=== PATIENT | female | born 1940 | race Caucasian/White ===

== ENCOUNTER → 2023-06-22 06:14 | Outpatient (ROUT) | payer MEDICARE, SELFPAY ==
[2023-06-22 07:10] LABS: Add Manual Diff / Slide Review NO; Basophils Absolute Auto 100 /uL (0-100); Basophils Percent Auto 0.7 % (0-2); Eosinophils Absolute Auto 300 /uL (0-450); Eosinophils Percent Auto 3.8 % (2-4); Hematocrit 34.4 % (36-46); Hemoglobin 11.1 g/dL (12.0-16.0); Lymphocytes Absolute Auto 2000 /uL (1100-4500); Lymphocytes Percent Auto 22.6 % (25-40); Mean Corpuscular HGB Conc 32.3 % (30-36); Mean Corpuscular Volume 80.5 fL (80-100); Monocytes Absolute Auto 500 /uL (0-900); Monocytes Percent Auto 5.2 % (3-14); Neutrophils Absolute Auto 6100 /uL (1500-7000); Neutrophils Percent Auto 67.7 % (50-75); Platelet Count 311 X10^3/uL (150-400); Red Blood Cell Count 4.28 X10^6/uL (4.0-5.2)
[2023-06-22 07:27] LABS: INR 1.7 (0.9-1.3); Prothrombin Time 20.1 SECONDS (9.4-12.5)
[2023-06-22 07:33] LABS: Alanine Aminotransferase 14 IU/L (<35); Albumin 3.6 g/dL (3.5-5.0); Albumin Globulin Ratio 1.3 (1.0-2.8); Alkaline Phosphatase 109 U/L (38-126); Aspartate Aminotransferase 19 IU/L (14-36); Bilirubin Total 0.4 mg/dL (0.2-1.3); Blood Urea Nitrogen 15 mg/dL (7-17); Calcium 9.2 mg/dL (8.4-10.2); Carbon Dioxide 31 mmol/L (22-32); Chloride 107 mmol/L (98-107); Estimated Glomerular Filt Rate > 60 mL/min (>60); Globulin 2.7 g/dL (1.7-4.1); Glucose 167 mg/dL (80-110); HEMOLYSIS < 15 (0-50); Potassium 5.1 mmol/L (3.4-5.1); Sodium 140 mmol/L (137-145); Total Protein 6.3 g/dL (6.3-8.2)
== END ==
PROVIDERS: Visit Provider Nurse Practitioner
DX: E03.9 Hypothyroidism, unspecified (principal)
CPT/HCPCS: 36415; 80053; 85025; 85610

== ENCOUNTER → 2023-06-29 06:24 | Outpatient (ROUT) | payer MEDICARE, SELFPAY ==
[2023-06-29 08:01] LABS: INR 2.1 (0.9-1.3); Prothrombin Time 24.3 SECONDS (9.4-12.5)
== END ==
PROVIDERS: Visit Provider Registered Nurse
DX: I48.91 Unspecified atrial fibrillation (principal)
CPT/HCPCS: 36415; 85610

== ENCOUNTER → 2023-07-06 06:14 | Outpatient (ROUT) | payer MEDICARE, SELFPAY ==
[2023-07-06 07:11] LABS: Prothrombin Time 23.5 SECONDS (9.4-12.5)
== END ==
PROVIDERS: Visit Provider Registered Nurse
DX: I48.91 Unspecified atrial fibrillation (principal)
CPT/HCPCS: 36415; 85610

== ENCOUNTER → 2023-07-15 15:21 | Outpatient (ROUT) | payer MEDICARE, SELFPAY ==
[2023-07-15 15:32] LABS: Appearance Urine UA CLOUDY; Bilirubin Urine UA NEGATIVE (NEGATIVE); Color Urine UA YELLOW; Glucose Urine UA NEGATIVE (Negative); Ketones Urine UA NEGATIVE (NEGATIVE); Leukocyte Esterase Urine UA 2+ (NEGATIVE); Nitrite Urine UA POSITIVE (Negative); Occult Blood Urine UA TRACE-INTACT (Negative); Protein Urine UA NEGATIVE (Negative); Urobilinogen Urine UA 0.2 E.U./dL (0.2)
[2023-07-15 15:41] LABS: Bacteria Urine Many (>30); Culture Indicated Urine Specimen Cultured; RBC Urine 1-5/HPF (0-5/HPF); Squamous Epithelial Cell Urine None Seen (0-5/HPF); Urine Volume 10mL (spun); WBC Urine 10-30/HPF (0-5/HPF)
== END ==
PROVIDERS: Visit Provider Internal Medicine
DX: Z13.89 Encounter for screening for other disorder (principal)
CPT/HCPCS: 81001; 87077; 87086; 87147; 87186

== ENCOUNTER → 2023-07-20 06:14 | Outpatient (ROUT) | payer MEDICARE, SELFPAY ==
[2023-07-20 07:04] LABS: Add Manual Diff / Slide Review NO; Basophils Absolute Auto 100 /uL (0-100); Basophils Percent Auto 0.7 % (0-2); Eosinophils Absolute Auto 200 /uL (0-450); Eosinophils Percent Auto 2.9 % (2-4); Hematocrit 33.9 % (36-46); Hemoglobin 10.8 g/dL (12.0-16.0); Lymphocytes Absolute Auto 1900 /uL (1100-4500); Lymphocytes Percent Auto 22.6 % (25-40); Mean Corpuscular Hemoglobin 25.9 PG (26-34); Mean Corpuscular Volume 80.9 fL (80-100); Monocytes Absolute Auto 500 /uL (0-900); Monocytes Percent Auto 5.9 % (3-14); Neutrophils Absolute Auto 5600 /uL (1500-7000); Neutrophils Percent Auto 67.9 % (50-75); Platelet Count 289 X10^3/uL (150-400); Red Blood Cell Count 4.19 X10^6/uL (4.0-5.2); Red Cell Distribution Width 15.9 % (11.6-14.8); White Blood Cell Count 8.3 X10^3/uL (4.5-11.0)
[2023-07-20 07:11] LABS: Hemoglobin A1C% w Est Avg Glu 8.7 % (4.0-6.0)
[2023-07-20 07:45] LABS: Thyroid Stimulating Hormone 3.05 uIU/mL (0.47-4.68)
[2023-07-20 08:21] LABS: Folate 9.4 ng/mL (2.76-20.0); Vitamin B12 979 pg/mL (239-931)
== END ==
PROVIDERS: Visit Provider Registered Nurse
DX: R41.0 Disorientation, unspecified (principal)
CPT/HCPCS: 36415; 82607; 82746; 83036; 84443; 85025

== ENCOUNTER → 2023-07-28 13:01 | Outpatient (CLI) | payer MEDICARE, SELFPAY ==
[2023-07-28 15:18] LABS: INR 1.9 (0.9-1.3); Prothrombin Time 21.4 SECONDS (9.4-12.5)
== END ==
PROVIDERS: Visit Provider Registered Nurse
DX: I48.91 Unspecified atrial fibrillation (principal)
CPT/HCPCS: 36415; 85610

== ENCOUNTER → 2023-08-17 06:12 | Outpatient (ROUT) | payer MEDICARE, SELFPAY ==
[2023-08-17 07:28] LABS: INR 2.7 (0.9-1.3); Prothrombin Time 30.9 SECONDS (9.4-12.5)
== END ==
PROVIDERS: Visit Provider Nurse Practitioner Family
DX: E05.90 Thyrotoxicosis, unspecified without thyrotoxic crisis or storm (principal)
CPT/HCPCS: 36415; 85610

== ENCOUNTER → 2023-08-24 06:23 | Outpatient (ROUT) | payer MEDICARE, SELFPAY ==
[2023-08-24 08:05] LABS: INR 2.9 (0.9-1.3); Prothrombin Time 33.4 SECONDS (9.4-12.5)
== END ==
PROVIDERS: Visit Provider Registered Nurse
DX: Z79.01 Long term (current) use of anticoagulants (principal)
CPT/HCPCS: 36415; 85610

== ENCOUNTER → 2023-08-31 06:26 | Outpatient (ROUT) | payer MEDICARE, SELFPAY ==
[2023-08-31 07:39] LABS: INR 2.3 (0.9-1.3); Prothrombin Time 27.1 SECONDS (9.4-12.5)
== END ==
PROVIDERS: Visit Provider Registered Nurse
DX: E03.9 Hypothyroidism, unspecified (principal)
CPT/HCPCS: 36415; 85610

== ENCOUNTER → 2023-09-07 10:38 | Outpatient (CLI) | payer MEDICARE, MEDICAID, SELFPAY ==
[2023-09-07 11:52] LABS: INR 2.1 (0.9-1.3); Prothrombin Time 24.6 SECONDS (9.4-12.5)
== END ==
LOC: LAB 10:41
PROVIDERS: Visit Provider Registered Nurse
DX: E03.9 Hypothyroidism, unspecified (principal)
CPT/HCPCS: 36415; 85610

== ENCOUNTER → 2023-09-14 05:51 | Outpatient (ROUT) | payer MEDICARE, MEDICAID, SELFPAY ==
[2023-09-14 07:37] LABS: Prothrombin Time 35.1 SECONDS (9.4-12.5)
== END ==
PROVIDERS: Visit Provider Registered Nurse
DX: E03.9 Hypothyroidism, unspecified (principal)
CPT/HCPCS: 36415; 85610

== ENCOUNTER → 2023-09-15 23:51 | Outpatient (ROUT) | payer MEDICARE, MEDICAID, SELFPAY | PROVIDERS: Visit Provider Internal Medicine | DX: R42 Dizziness and giddiness (principal); M79.7 Fibromyalgia; E03.9 Hypothyroidism, unspecified; G99.0 Autonomic neuropathy in diseases classified elsewhere; I48.91 Unspecified atrial fibrillation; I73.00 Raynaud's syndrome without gangrene | CPT/HCPCS: 87086 ==

== ENCOUNTER → 2023-09-28 06:19 | Outpatient (ROUT) | payer MEDICARE, MEDICAID, SELFPAY ==
[2023-09-28 07:49] LABS: INR 2.6 (0.9-1.3); Prothrombin Time 30.3 SECONDS (9.4-12.5)
== END ==
PROVIDERS: Visit Provider Registered Nurse
DX: E03.9 Hypothyroidism, unspecified (principal)
CPT/HCPCS: 36415; 85610

== ENCOUNTER → 2023-10-05 06:54 | Outpatient (ROUT) | payer MEDICARE, MEDICAID, SELFPAY ==
[2023-10-05 07:19] LABS: INR 1.8 (0.9-1.3); Prothrombin Time 20.9 SECONDS (9.4-12.5)
== END ==
PROVIDERS: Visit Provider Registered Nurse
DX: E03.9 Hypothyroidism, unspecified (principal)
CPT/HCPCS: 36415; 85610

== ENCOUNTER → 2023-10-12 06:14 | Outpatient (ROUT) | payer MEDICARE, MEDICAID, SELFPAY ==
[2023-10-12 07:16] LABS: INR 2.5 (0.9-1.3); Prothrombin Time 28.5 SECONDS (9.4-12.5)
== END ==
PROVIDERS: Visit Provider Registered Nurse
DX: E03.9 Hypothyroidism, unspecified (principal)
CPT/HCPCS: 36415; 85610

== ENCOUNTER → 2023-10-19 06:12 | Outpatient (ROUT) | payer MEDICARE, MEDICAID, SELFPAY ==
[2023-10-19 08:05] LABS: Prothrombin Time 23.4 SECONDS (9.4-12.5)
== END ==
PROVIDERS: Visit Provider Registered Nurse
DX: E03.9 Hypothyroidism, unspecified (principal)
CPT/HCPCS: 36415; 85610

== ENCOUNTER → 2023-11-02 07:44 | Outpatient (ROUT) | payer MEDICARE, MEDICAID, SELFPAY ==
[2023-11-02 08:30] LABS: Prothrombin Time 23.3 SECONDS (9.4-12.5)
== END ==
PROVIDERS: Visit Provider Registered Nurse
DX: R79.1 Abnormal coagulation profile (principal)
CPT/HCPCS: 36415; 85610

== ENCOUNTER → 2023-11-09 06:10 | Outpatient (ROUT) | payer MEDICARE, MEDICAID, SELFPAY ==
[2023-11-09 07:00] LABS: INR 2.4 (0.9-1.3); Prothrombin Time 27.6 SECONDS (9.4-12.5)
== END ==
PROVIDERS: Visit Provider Registered Nurse
DX: E03.9 Hypothyroidism, unspecified (principal)
CPT/HCPCS: 36415; 85610

== ENCOUNTER 2023-11-09 09:58 | Emergency (ER) | payer MEDICARE, MEDICAID, SELFPAY ==
[2023-11-09] VITALS (9 sets, daily range): BP systolic 137–150; BP diastolic 62–69; PULSE 85–89; RESP 12–17; TEMP 36.8; O2SAT 96–99
--- NOTE | 2023-11-09 10:04 | DI.CT.S_ITS ---
PROCEDURE: CT HEAD/BRAIN WO CON INDICATIONS: fall TECHNIQUE: Noncontrast 4.5 mm thick angled axial sections acquired from the foramen magnum to the vertex, with coronal and sagittal reformats. For radiation dose reduction, the following was used: automated exposure control, adjustment of mA and/or kV according to patient size. COMPARISON: None. FINDINGS: Image quality: Diagnostic. CSF spaces: Basal cisterns are patent. No extra-axial fluid collections. The ventricles are symmetric in size and shape. Brain: No intracranial bleeds or masses. There is cerebral volume loss for age, with resultant ventricular and sulcal prominence. There are periventricular and deep white matter chronic small vessel ischemic changes. There is intracranial internal carotid artery atherosclerosis. Skull and face: Superficial hematoma, left forehead. Calvarium and visualized facial bones appear intact, without suspicious lesions. Sinuses: Visualized sinuses and mastoids are clear. IMPRESSION: 1. No acute intracranial pathology. 2. Superficial hematoma, left forehead. Dictated by: Maxi Sibley M.D. on 11/09/2023 at 10:42 Approved by: Maxi Sibley M.D. on 11/09/2023 at 10:43
--- NOTE | 2023-11-09 10:05 | ED.GENADULT ---
HPI - General Adult General Chief complaint: Trauma Stated complaint: Mod Trauma, hit head on warfarin Time Seen by Provider: 11/09/23 10:03 History of Present Illness HPI narrative: 82-year-old woman lives in [facility] stumbled and fell in the bathroom hitting the front part of her forehead and a small trash can. There was no loss of consciousness, she was on the floor for approximately 45 minutes until she was able to reach her phone and call her son. She complains of some minor neck pain. She very much describes this as a mechanical fall, states she has been in her usual state of reasonable health. No recent fevers, cough, chills. She describes no chest pain, palpitations, dyspnea. She has not complaining of any pain to other portions of her body. She notes she was not able to get up off the floor by herself but would not has been able to do so at any previous time either. She is on warfarin for her chronic atrial fibrillation Related Data Allergies Allergy/AdvReac Type Severity Reaction Status Date / Time adhesive tape Allergy Verified 11/09/23 10:20 apixaban [From Eliquis] Allergy Verified 11/09/23 10:20 Cholinesterase Allergy Verified 11/09/23 10:20 Inhibitor(Carbamate) dulaglutide Allergy Verified 11/09/23 10:20 NSAIDS (Non-Steroidal Allergy Verified 11/09/23 10:20 Anti-Inflamma Sulfa (Sulfonamide Allergy Verified 11/09/23 10:20 Antibiotics) Review of Systems Review of Systems Narrative: Pertinent positive and negative findings as per HPI Patient History Medical History (Updated 11/09/23 @ 11:17 by Ashlyn Elmore MD) Chronic atrial fibrillation Social History Smoking Status: Never smoker Exam Initial Vital Signs Initial Vital Signs: Vital Signs Pulse Rate 89 11/09/23 09:56 Respiratory Rate 16 11/09/23 09:56 Blood Pressure 150/69 H 11/09/23 09:56 Pulse Oximetry 99 11/09/23 09:56 Oxygen Delivery Method Room Air 11/09/23 09:56 General: In no acute distress, able to speak in complete and coherent sentences HEENT: Moist mucous membranes, normal sclera with reactive pupils, large hematoma with minor abrasion no laceration over the left brow. Neck: Mild tenderness along the left cervical spine from approximately C4-C7. Respiratory: Lungs are clear to auscultation, no wheezing no rales no rhonchi. Full and symmetrical air movement Cardiac: Regular rate and rhythm no murmurs no bruits Abdomen: Soft, nontender, good bowel tones, no flank pain Skin: Warm and dry, no rashes, no new bruises over extremities or hips. She does have some old healing bruises over knees bilaterally Neurologic: Grossly neurologically intact with no obvious asymmetries or abnormalities Extremities: No trauma, well perfused Psych: Cooperative, appropriate insight and affect Course Orders Ordered: ED Orders 11/09/23 10:04 CT head/brain wo con Stat EKG-12 Lead Stat 11/09/23 10:10 Complete Blood Count AUTO DIFF Stat Comprehensive Metabolic Panel Stat Prothrombin Time INR Stat Troponin I Stat 11/09/23 10:11 CT cervical spine wo con Stat Hydromorphone HCl (Hydromorphone 0.5 Mg Inj) 0.5 mg IV Q15MIN PRN PRN Reason: Pain, Last Admin: 11/09/23 10:21 Dose: 0.5 mg Documented By: CATHIE Sodium Chloride (Normal Saline 0.9%) 1,000 mls @ 150 mls/hr IV CONT ISI Last Admin: 11/09/23 10:22 Dose: 150 mls/hr Documented By: CATHIE Vital Signs Vital signs: Vital Signs - 8 hr 11/09/23 09:56 11/09/23 09:58 11/09/23 09:59 Temperature Temperature [1000] Pulse Rate 89 Pulse Rate [1000] Respiratory Rate 16 Respiratory Rate [1000] Blood Pressure 150/69 H 150/69 H Blood Pressure [1000] Pulse Oximetry 99 96 Pulse Oximetry [1000] Oxygen Delivery Method Room Air Oxygen Delivery Method [1000] 11/09/23 09:59 11/09/23 10:00 11/09/23 10:00 Temperature Temperature [1000] Pulse Rate 88 88 Pulse Rate [1000] Respiratory Rate 16 Respiratory Rate [1000] Blood Pressure 137/63 Blood Pressure [1000] Pulse Oximetry 99 99 Pulse Oximetry [1000] Oxygen Delivery Method Oxygen Delivery Method [1000] 11/09/23 10:22 11/09/23 10:23 11/09/23 10:26 Temperature 98.2 F Temperature [1000] 98.2 F Pulse Rate 85 Pulse Rate [1000] 88 Respiratory Rate 12 Respiratory Rate [1000] 16 Blood Pressure 144/67 H Blood Pressure [1000] 150/69 H Pulse Oximetry 99 Pulse Oximetry [1000] 99 Oxygen Delivery Method Oxygen Delivery Method [1000] Room Air Medical Decision Making Lab Data 11/09/23 10:10 11/09/23 10:10 Labs: Lab Results 11/09/23 Range/Units 10:10 WBC 10.9 (4.5-11.0) X10^3/uL RBC 5.21 H (4.0-5.2) X10^6/uL Hgb 12.9 (12.0-16.0) g/dL Hct 40.7 (36-46) % MCV 78.2 L (80-100) fL MCH 24.7 L (26-34) PG MCHC 31.6 (30-36) % RDW 16.4 H (11.6-14.8) % Plt Count 388 (150-400) X10^3/uL Neut % (Auto) 79.1 H (50-75) % Lymph % (Auto) 11.9 L (25-40) % [place] % (Auto) 5.1 (3-14) % Eos % (Auto) 3.6 (2-4) % Baso % (Auto) 0.3 (0-2) % Neut # (Auto) 8600 H (7134-4544) /uL Lymph # (Auto) 1300 (8808-9061) /uL [place] # (Auto) 600 (0-900) /uL Eos # (Auto) 400 (0-450) /uL Baso # (Auto) 0 (0-100) /uL PT 25.4 H (9.4-12.5) SECONDS INR 2.2 H (0.9-1.3) Sodium 134 L (137-145) mmol/L Potassium 4.5 (3.4-5.1) mmol/L Chloride 101 (98-107) mmol/L Carbon Dioxide 22 (22-32) mmol/L BUN 24 H (7-17) mg/dL Creatinine 0.86 (0.52-1.04) mg/dL Estimated GFR > 60 (>60) mL/min BUN/Creatinine Ratio 27.9 H (6-22) Glucose 298 H (80-110) mg/dL Calcium 9.3 (8.4-10.2) mg/dL Total Bilirubin 0.6 (0.2-1.3) mg/dL AST 25 (14-36) IU/L ALT 18 (<35) IU/L Alkaline Phosphatase 105 (38-126) U/L Troponin I < 0.012 (0.01-0.034) ng/mL Total Protein 8.0 (6.3-8.2) g/dL Albumin 4.3 (3.5-5.0) g/dL Globulin 3.7 (1.7-4.1) g/dL Albumin/Globulin Ratio 1.2 (1.0-2.8) MDM Narrative Medical decision making narrative: CC: Mechanical fall, hit her head, is on warfarin, no loss of consciousness Complicating co-morbidities: Chronic atrial fibrillation Data collected from: patient Social determinants of health that may influence the patients condition: She does live in an assisted living facility Differential considered: Mechanical fall with contusion to the head, intracranial hemorrhage, cervical spine injury, syncope or cardiac episode causing the fall Exam documented above, pertinent findings include: Large hematoma over the left brow minor tenderness to the left side of the cervical spine no obvious trauma or bruising anywhere else on her body. Lab Test results independently reviewed as above. Pertinent findings: CBC is unremarkable Chemistries are reassuring. Glucose is at 298 Troponin is undetectable INR is therapeutic 2.2 Independently reviewed EKG: Sinus rhythm at a rate of 85. Right bundle branch block. No acute ischemic changes Imaging studies independently reviewed: CT scan of the head shows the superficial hematoma noted clinically only CT scan of the cervical spine shows no acute fractures Discussion: 82-year-old woman on Coumadin for chronic atrial fibrillation, lives in assisted living facility mechanical fall with hematoma to the left side of her forehead with no indication of intracranial hemorrhage or cervical spine injury. There is no additional musculoskeletal trauma. Did explain to her that this large hematoma is going to cause a bruise all the way down her face and into her chest and is likely going to take up to a month to completely resolve. She has not ice pack in place, has Tylenol available at home to use needed. Reassurance is given there was no indication for hospitalization, additional imaging or lab work at this time. She is safe for discharge Discharge Plan Departure Patient Disposition: Home Clinical Impression: Anticoagulated Fall Qualifiers: Encounter type: initial encounter Qualified Code(s): W19.XXXA - Unspecified fall, initial encounter Traumatic hematoma of forehead Qualifiers: Encounter type: initial encounter Qualified Code(s): S00.83XA - Contusion of other part of head, initial encounter Instructions: DI for Hematoma (Bruise) Activity Restrictions/Additional Instructions: Thank you for coming in today Aside from the large hematoma you have over your forehead, there was no additional injury that we have found after your fall this morning. The CT scan of the inside of your head as well as your cervical spine are quite reassuring With the large bruise to your forehead, this is going to take up to a month or longer to completely heal. It is going to turn black and blue all the way down the side of your face and likely even into your upper chest You can use Tylenol for pain, ice can be helpful over the course of today If you find that you are getting worse or develop any new symptoms, please feel free to return to the emergency department for further evaluation. Stand Alone Forms: Patient Portal/API
--- NOTE | 2023-11-09 10:11 | DI.CT.S_ITS ---
PROCEDURE: CT CERVICAL SPINE WO CON INDICATIONS: fall TECHNIQUE: Noncontrast 3 mm thick sections acquired from the skull base to the T4 level. Sagittal and coronal reformats were then constructed. For radiation dose reduction, the following was used: automated exposure control, adjustment of mA and/or kV according to patient size. COMPARISON: None. FINDINGS: Image quality: Excellent. Bones: No fractures or dislocations. Visualized superior ribs are intact. Relatively mild cervical spondylosis. Soft tissues: Prevertebral soft tissues are normal in thickness. No paravertebral hematomas. No apical pneumothoraces. IMPRESSION: No displaced fracture or traumatic subluxation. Dictated by: Maxi Sibley M.D. on 11/09/2023 at 10:43 Approved by: Maxi Sibley M.D. on 11/09/2023 at 10:44
[2023-11-09 10:17] LABS: Add Manual Diff / Slide Review NO; Basophils Absolute Auto 0 /uL (0-100); Basophils Percent Auto 0.3 % (0-2); Eosinophils Absolute Auto 400 /uL (0-450); Eosinophils Percent Auto 3.6 % (2-4); Hematocrit 40.7 % (36-46); Hemoglobin 12.9 g/dL (12.0-16.0); Lymphocytes Absolute Auto 1300 /uL (1100-4500); Lymphocytes Percent Auto 11.9 % (25-40); Mean Corpuscular HGB Conc 31.6 % (30-36); Mean Corpuscular Hemoglobin 24.7 PG (26-34); Mean Corpuscular Volume 78.2 fL (80-100); Monocytes Absolute Auto 600 /uL (0-900); Monocytes Percent Auto 5.1 % (3-14); Neutrophils Absolute Auto 8600 /uL (1500-7000); Neutrophils Percent Auto 79.1 % (50-75); Platelet Count 388 X10^3/uL (150-400); Red Blood Cell Count 5.21 X10^6/uL (4.0-5.2); Red Cell Distribution Width 16.4 % (11.6-14.8); White Blood Cell Count 10.9 X10^3/uL (4.5-11.0)
[2023-11-09] MEDS: HYDROMORPHONE 0.5 MG INJ IV (10:21)
[2023-11-09] MEDS: SODIUM CHLORIDE 0.9% 1,000 ML 150 ML IV (10:22)
--- NOTE | 2023-11-09 10:25 | PC.NURSE ---
Pt states tetanus shot is from 2 years ago.
--- NOTE | 2023-11-09 10:29 | EKG_ITS ---
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
[2023-11-09 10:32] LABS: INR 2.2 (0.9-1.3); Prothrombin Time 25.4 SECONDS (9.4-12.5)
--- NOTE | 2023-11-09 10:36 | PC.NURSE ---
Unable to obtain prehospital vital signs.
[2023-11-09 10:37] LABS: Alanine Aminotransferase 18 IU/L (<35); Albumin 4.3 g/dL (3.5-5.0); Albumin Globulin Ratio 1.2 (1.0-2.8); Alkaline Phosphatase 105 U/L (38-126); Aspartate Aminotransferase 25 IU/L (14-36); BUN Creatinine Ratio 27.9 (6-22); Bilirubin Total 0.6 mg/dL (0.2-1.3); Blood Urea Nitrogen 24 mg/dL (7-17); Calcium 9.3 mg/dL (8.4-10.2); Carbon Dioxide 22 mmol/L (22-32); Chloride 101 mmol/L (98-107); Estimated Glomerular Filt Rate > 60 mL/min (>60); Globulin 3.7 g/dL (1.7-4.1); Glucose 298 mg/dL (80-110); HEMOLYSIS 35 (0-50); Potassium 4.5 mmol/L (3.4-5.1); Sodium 134 mmol/L (137-145)
[2023-11-09 10:49] LABS: Troponin I < 0.012 ng/mL (0.01-0.034)
--- NOTE | 2023-11-09 11:32 | PC.NURSE ---
[facility] Message left.
[2023-11-09 11:50] LABS: Urine Volume 10mL (spun)
[2023-11-09 11:51] LABS: Bacteria Urine Many (>30); Culture Indicated Urine Specimen Cultured; RBC Urine 5-10/HPF (0-5/HPF); Squamous Epithelial Cell Urine 0-1 /HPF (0-5/HPF); WBC Urine 1-5/HPF (0-5/HPF)
== END 2023-11-09 11:33 | disposition home or self-care (01) ==
PROVIDERS: Emergency Provider Emergency Medicine
DX: S00.83XA Contusion of other part of head, initial encounter (principal); M54.2 Cervicalgia; I45.10 Unspecified right bundle-branch block; W18.00XA Striking against unspecified object with subsequent fall, initial encounter; Z79.01 Long term (current) use of anticoagulants; E03.9 Hypothyroidism, unspecified
CPT/HCPCS: 36415; 70450; 72125; 80053; 81003; 81015; 84484; 85025; 85610; 87086; 93005; 93010; 96361; 96374; 99284; J1170

== ENCOUNTER → 2023-11-23 13:41 | Outpatient (CLI) | payer MEDICARE, MEDICAID, SELFPAY ==
[2023-11-23 14:13] LABS: Bilirubin Urine UA NEGATIVE (NEGATIVE); Color Urine UA YELLOW; Glucose Urine UA 3+ g/dL (Negative); Ketones Urine UA NEGATIVE (NEGATIVE); Leukocyte Esterase Urine UA TRACE (NEGATIVE); Nitrite Urine UA NEGATIVE (Negative); Occult Blood Urine UA 1+ (Negative); Protein Urine UA NEGATIVE (Negative); Specific Gravity Urine UA 1.015 (1.000-1.035); Urobilinogen Urine UA 0.2 E.U./dL (0.2)
[2023-11-23 14:15] LABS: Appearance Urine UA CLOUDY
[2023-11-23 14:18] LABS: Urine Volume 10mL (spun)
[2023-11-23 14:27] LABS: Bacteria Urine Many (>30); Culture Indicated Urine Specimen Cultured; RBC Urine 0-1/HPF (0-5/HPF); Squamous Epithelial Cell Urine 0-1 /HPF (0-5/HPF); WBC Urine 30-100/HPF (0-5/HPF)
== END ==
PROVIDERS: PCP Family Medicine; Visit Provider Family Medicine
DX: R30.0 Dysuria (principal)
CPT/HCPCS: 81001; 87086

== ENCOUNTER 2023-11-24 12:25 | Emergency (ER) | payer MEDICARE, MEDICAID, SELFPAY ==
[2023-11-24] VITALS (11 sets, daily range): BP systolic 136–178; BP diastolic 65–80; PULSE 85–100; RESP 16–24; TEMP 36.6; O2SAT 95–98; BMI 23.9
--- NOTE | 2023-11-24 12:59 | ED_ITS ---
HPI - Fall General Chief Complaint: Fall Stated Complaint: Fell out of bed Tuesday,now left rib pain,+coumadin Time Seen by Provider: 11/24/23 12:48 History of Present Illness HPI Narrative: 83-year-old female resident at [facility] complains of ongoing left lower chest left upper quadrant abdominal discomfort after rolling out of bed Tuesday 3 days ago, hurts worse with breathing deeply, hurts with truncal movements sitting twisting motions. She denies black or red stools. She denies blood in her urine. She denies sensation of shortness of breath. Denies black or red stools. Takes warfarin chronic anticoagulation. Related Data Home Medications Medication Instructions Recorded Confirmed acetaminophen 500 mg tablet 1,000 mg PO QID PRN 11/23/23 11/23/23 cholecalciferol (vitamin D3) 50 50 mcg PO DAILY 11/23/23 11/23/23 mcg (2,000 unit) capsule empagliflozin 10 mg tablet 10 mg PO DAILY 11/23/23 11/23/23 (Jardiance) glipizide 10 mg tablet 10 mg PO DAILY 11/23/23 11/23/23 levothyroxine 112 mcg tablet 112 mcg PO DAILY 11/23/23 11/23/23 mecobalamin (vitamin B12) 1,000 1,000 mcg sublingual DAILY 11/23/23 11/23/23 mcg disintegrating tablet,sublingual metformin 1,000 mg tablet 1,000 mg PO BID 11/23/23 11/23/23 omeprazole 20 mg tablet,delayed 20 mg PO BID 11/23/23 11/23/23 release venlafaxine 75 mg tablet 75 mg PO BID 11/23/23 11/23/23 levalbuterol tartrate 45 2 puff inhalation Q4-6H PRN 11/24/23 11/24/23 mcg/actuation aerosol inhaler (Xopenex HFA) warfarin 2.5 mg tablet 2.5 mg PO 4XW 11/24/23 11/24/23 warfarin 3 mg tablet 3 mg PO Q OTHER DAY 11/24/23 11/24/23 Previous Rx's Medication Instructions Recorded ciprofloxacin HCl 250 mg tablet 250 mg PO BID #10 tabs 11/22/23 albuterol sulfate 90 mcg/actuation 2 puff inhalation Q6H PRN 11/24/23 aerosol inhaler shortness of breath or wheezing #8.5 grams cefuroxime axetil 500 mg tablet 500 mg PO BID #14 tabs 11/24/23 Allergies Allergy/AdvReac Type Severity Reaction Status Date / Time adhesive tape Allergy Verified 11/22/23 13:16 apixaban [From Eliquis] Allergy Verified 11/22/23 13:16 Cholinesterase Allergy Verified 11/22/23 13:16 Inhibitor(Carbamate) dulaglutide Allergy Verified 11/22/23 13:16 NSAIDS (Non-Steroidal Allergy Verified 11/22/23 13:16 Anti-Inflamma Sulfa (Sulfonamide Allergy Verified 11/22/23 13:16 Antibiotics) Review of Systems Review of Systems Narrative: see HPI Patient History Medical History (Updated 11/24/23 @ 15:56 by Blanco Ogden MD) Chronic atrial fibrillation Social History Smoking Status: Never smoker Smoking Status: Never smoker Substance Use Type: does not use Exam Narrative Exam Narrative: GENERAL: Well-developed patient, in mild distress. HEAD: Atraumatic. Normocephalic. EYES: Pupils equal round and reactive. Extraocular motions intact. No scleral icterus. No injection or drainage. ENT: Nose without bleeding, purulent drainage. Throat without erythema, tonsillar hypertrophy or exudate. Airway patent. NECK: Trachea midline. Non tender CARDIOVASCULAR: Regular rate and rhythm without murmurs, gallops, or rubs. RESPIRATORY: Clear to auscultation. Breath sounds equal bilaterally. No wheezes, rales, or rhonchi. Tenderness left anterior rib margin, no crepitance, no abrasion, no flail chest movements. Speaks full sentences. GASTROINTESTINAL: Abdomen soft, tenderness left upper quadrant, nondistended. EXTREMITIES: No edema or joint tenderness. BACK: Nontender without deformity or crepitance. No flank tenderness. NEURO: AOx3. Motor functions grossly nonfocal SKIN: No rash or erythema of visible areas Initial Vital Signs Initial Vital Signs: Vital Signs Temperature 98 F 11/24/23 12:33 Pulse Rate 91 H 11/24/23 12:33 Respiratory Rate 16 11/24/23 12:33 Blood Pressure 178/80 H 11/24/23 12:33 Pulse Oximetry 97 11/24/23 12:33 Oxygen Delivery Method Room Air 11/24/23 12:33 Course Orders Ordered: ED Orders 11/24/23 14:14 XR chest 1V Stat 11/24/23 14:15 CT abdomen pelvis w con Stat 11/24/23 14:33 CBC Auto Diff [Complete Blood Count AUTO DIFF] Stat CMP [Comprehensive Metabolic Panel] Stat 11/24/23 14:46 Urinalysis and Microscopic Stat Urine Culture Stat Discontinued Medications Cefuroxime Axetil (Cefuroxime 250 Mg Tablet) 500 mg PO NOW ONE Stop: 11/24/23 15:52 Last Admin: 11/24/23 16:36 Dose: 500 mg Documented By: SHYAM Vital Signs Vital signs: Vital Signs - 8 hr 11/24/23 13:30 11/24/23 13:30 11/24/23 14:00 Pulse Rate 92 H 87 Respiratory Rate 23 23 Blood Pressure 160/74 H Pulse Oximetry 95 96 Oxygen Delivery Method Room Air 11/24/23 14:00 11/24/23 14:30 11/24/23 15:00 Pulse Rate 85 91 H Respiratory Rate 24 22 Blood Pressure 153/67 H Pulse Oximetry 98 96 Oxygen Delivery Method Room Air Room Air 11/24/23 15:33 11/24/23 16:00 11/24/23 16:30 Pulse Rate 89 92 H 93 H Respiratory Rate 20 24 Blood Pressure Pulse Oximetry 95 95 98 Oxygen Delivery Method 11/24/23 17:01 Pulse Rate 100 H Respiratory Rate Blood Pressure 136/65 Pulse Oximetry 97 Oxygen Delivery Method Room Air MDM - Fall Lab Data 11/24/23 14:33 11/24/23 14:33 Labs: Lab Results 11/24/23 11/24/23 Range/Units 14:33 14:46 WBC 11.0 (4.5-11.0) X10^3/uL RBC 4.81 (4.0-5.2) X10^6/uL Hgb 11.7 L (12.0-16.0) g/dL Hct 37.1 (36-46) % MCV 77.2 L (80-100) fL MCH 24.3 L (26-34) PG MCHC 31.5 (30-36) % RDW 16.8 H (11.6-14.8) % Plt Count 384 (150-400) X10^3/uL Neut % (Auto) 75.5 H (50-75) % Lymph % (Auto) 14.4 L (25-40) % [place] % (Auto) 6.0 (3-14) % Eos % (Auto) 3.1 (2-4) % Baso % (Auto) 1.0 (0-2) % Neut # (Auto) 8300 H (8255-1767) /uL Lymph # (Auto) 1600 (7028-4968) /uL [place] # (Auto) 700 (0-900) /uL Eos # (Auto) 300 (0-450) /uL Baso # (Auto) 100 (0-100) /uL Sodium 138 (137-145) mmol/L Potassium 4.0 (3.4-5.1) mmol/L Chloride 105 (98-107) mmol/L Carbon Dioxide 26 (22-32) mmol/L BUN 14 (7-17) mg/dL Creatinine 0.59 (0.52-1.04) mg/dL Estimated GFR > 60 (>60) mL/min BUN/Creatinine Ratio 23.7 H (6-22) Glucose 138 H (80-110) mg/dL Calcium 9.0 (8.4-10.2) mg/dL Total Bilirubin 0.5 (0.2-1.3) mg/dL AST 20 (14-36) IU/L ALT 13 (<35) IU/L Alkaline Phosphatase 111 (38-126) U/L Total Protein 7.5 (6.3-8.2) g/dL Albumin 4.2 (3.5-5.0) g/dL Globulin 3.3 (1.7-4.1) g/dL Albumin/Globulin Ratio 1.3 (1.0-2.8) Urine Color Yellow Urine Appearance Cloudy Urine pH 5.5 (4.5-8.0) Ur Specific [place] 1.010 (1.000-1.035) Urine Protein Negative (Negative) Urine Glucose (UA) 3+ H (Negative) g/dL Urine Ketones Negative (NEGATIVE) Urine Occult Blood Trace-intact (Negative) Urine Nitrate Negative (Negative) Urine Bilirubin Negative (NEGATIVE) Urine Urobilinogen 0.2 (0.2) E.U./dL Ur Leukocyte Esterase 2+ H (NEGATIVE) Urine RBC None seen (0-5/HPF) Urine WBC 5-10/hpf H (0-5/HPF) Ur Squamous Epith Cells None seen (0-5/HPF) Urine Bacteria Many (>30) H (None) Urine Yeast 10-30/hpf H (None) Ur Culture Indicated? Specimen cultured Vol Urine Centrifuged 10ml (spun) MDM Narrative Medical decision making narrative: 83-year-old female fell from bed at her nursing facility 3 days ago, has persisting increasing left anterior lower chest discomfort, as well as left upper quadrant abdominal discomfort, worse with inspiration. On examination has tenderness to the lower anterior lateral ribs, no crepitance or bruising. Respiratory distress, lungs clear. Has also some tenderness left upper quadrant abdomen, and left middle quadrant abdomen. Chest x-ray requested. Labs sent, CT abdomen and pelvis IV imaging ordered. She declines pain medications when offered Chest x-ray shows left-sided lateral 6th rib fracture, no pneumothorax, no hemothorax, no pulmonary contusion. See radiology report. CT abdomen and pelvis shows lateral rib fractures 6 and 7, some associated atelectasis, no infiltrates. No pulmonary contusion, no hemothorax, no pneumothorax changes. See radiology report. Urinalysis shows bacteriuria, inflammatory cells, urine culture indicated. We will treat with oral Ceftin antibiotic, less likely to interact with her warfarin then many other antibiotic choices, no allergies noted to beta lactams or cephalosporins. Prescription sent for further course oral Ceftin to her pharmacy. Albuterol MDI inhaler with spacer, Incentive spirometer, OTC analgesics, discussed importance of pulmonary toilet, pneumonia prevention, advised to recheck lung exam Tuesday after this weekend, return precautions advised. DC back to [facility] Discharge Plan Departure Patient Disposition: Home Clinical Impression: Left-sided chest wall pain, Left rib fracture, Fall from bed, Urinary tract infection Instructions: DI for Rib Fracture, DI for Urinary Tract Infection (UTI), How to Prevent Falls Activity Restrictions/Additional Instructions: Recent fall from bed at your assisted care facility, left lower chest left upper abdominal discomfort. Some tenderness on examination lower chest and upper abdomen. Chest x-ray shows left 6th rib fracture, but no injury to underlying lung. Labs blood testing unremarkable. Urinalysis however suspicious for infection. You take warfarin anticoagulation. Cefuroxime/Ceftin antibiotic does not seem to interact with warfarin many other antibiotics might, 1st dose oral given in the emergency department, prescription further course antibiotic sent to your pharmacy. Consider recheck of urine after course completion of antibiotics. CT abdomen and pelvis did not show injuries to spleen or other structures in the area of the left lower chest left upper quadrant abdominal region. Take Tylenol and or Motrin as needed for pain control, deep breathe, to decrease risk of pneumonia due to rib fracture. Consider use of albuterol inhaler with use of spacer 2 puffs 4 times daily for the next few days to help prevent pneumonia. Consider use of incentive spirometer to help open up the lungs to help prevent collapse due to chest wall discomfort, and increased risk for pneumonia. Consider recheck of lung exam Tuesday with your regular provider. Return to this/nearest emergency department for any change worsening symptoms or any concerns prior Prescriptions: New cefuroxime axetil 500 mg tablet 500 mg PO BID Qty: 14 0RF albuterol sulfate 90 mcg/actuation HFA aerosol inhaler 2 puff inhalation Q6H PRN (Reason: shortness of breath or wheezing) Qty: 8.5 0RF No Action ciprofloxacin HCl 250 mg tablet 250 mg PO BID Qty: 10 0RF acetaminophen 500 mg tablet 1,000 mg PO QID PRN Jardiance 10 mg tablet 10 mg PO DAILY glipizide 10 mg tablet 10 mg PO DAILY levothyroxine 112 mcg tablet 112 mcg PO DAILY metformin 1,000 mg tablet 1,000 mg PO BID omeprazole 20 mg tablet,delayed release (DR/EC) 20 mg PO BID venlafaxine 75 mg tablet 75 mg PO BID mecobalamin (vitamin B12) 1,000 mcg tablet,disintegrating 1,000 mcg sublingual DAILY Rx Instructions: place tablet under tongue and allow to dissolve for at least30 secs before swallowing cholecalciferol (vitamin D3) 50 mcg (2,000 unit) capsule 50 mcg PO DAILY warfarin 2.5 mg tablet 2.5 mg PO 4XW warfarin 3 mg tablet 3 mg PO Q OTHER DAY Rx Instructions: on odd numbered days levalbuterol tartrate [Xopenex HFA] 45 mcg/actuation HFA aerosol inhaler 2 puff inhalation Q4-6H PRN Referrals: Margarita Payne DO [Primary Care Provider] - Stand Alone Forms: Patient Portal/API
--- NOTE | 2023-11-24 14:14 | DI.RAD.S_ITS ---
PROCEDURE: XR CHEST 1V INDICATIONS: Left lower chest pain after fell fr bed 3d ago TECHNIQUE: One view of the chest was acquired. COMPARISON: None. FINDINGS: Surgical changes and devices: None. Lungs and pleura: Lungs are clear. No pleural effusions or pneumothorax. Mediastinum: Aortic arch calcifications. Mediastinal contours appear normal. Heart size is normal. Bones and chest wall: Diffuse osseous demineralization. Acute, minimally displaced left 6th anterolateral rib fracture. No suspicious bony lesions. Overlying soft tissues appear unremarkable. IMPRESSION: Acute, minimally displaced left 6th anterolateral rib fracture. In the setting of demineralization, additional nondisplaced fractures are possible. Dictated by: Andrew Rendon M.D. on 11/24/2023 at 14:52 Approved by: Andrew Rendon M.D. on 11/24/2023 at 14:54
--- NOTE | 2023-11-24 14:15 | DI.CT.S_ITS ---
PROCEDURE: CT ABDOMEN PELVIS W CON INDICATIONS: LUQ pain fell from bed TECHNIQUE: After the administration of intravenous contrast, axial sections acquired from the lung bases to the pubic symphysis. Coronal and sagittal reformats were performed. For radiation dose reduction, the following was used: automated exposure control, adjustment of mA and/or kV according to patient size. COMPARISON: [facility], CR, XR CHEST 1V, 11/24/2023, 14:25. FINDINGS: Image quality: Diagnostic. Peritoneum: No pneumoperitoneum or ascites. Bones: Diffuse osseous demineralization. Status post prior cephalomedullary nailing of the right femur for an intertrochanteric fracture acute, minimally displaced left 6th and 7th anterolateral rib fractures (03/25-16). The visualized vertebral body heights are preserved. Lower Chest: Trace left pleural effusion with associated passive atelectasis. Linear parenchymal banding/scarring at the lung bases. Bibasilar lower lobe predominant bronchiolectasis. Liver: Normal in size and contour. Gallbladder: No stones or pericholecystic fluid. Biliary tree: No intrahepatic or extrahepatic biliary ductal dilatation. Pancreas: Within normal limits. Spleen: Normal in size and contour. Kidneys: No hydronephrosis or obstructive urolithiasis. Adrenals: No adrenal nodularity. Bladder: Normal in size and wall thickness. : No acute abnormality. Stomach: Normal in size and contour. Bowel: Redundancy of the cecum, which lies in the right upper quadrant. Nonvisualization of the appendix without secondary signs of acute appendicitis. Fecalization within the distal small bowel, which can be seen with delayed transit or small-bowel intestinal bacterial overgrowth. Lymph Nodes: No retroperitoneal, mesenteric, or inguinal lymphadenopathy. Vascular: No abdominal aortic aneurysm. The visualized arterial vasculature is patent. Mild aortoiliac atherosclerosis. Soft Tissues: No acute abnormality. IMPRESSION: 1. Left 6th and 7th anterolateral rib fractures. 2. Trace left pleural effusion with passive atelectasis. Dictated by: Andrew Rendon M.D. on 11/24/2023 at 15:51 Approved by: Andrew Rendon M.D. on 11/24/2023 at 15:59
[2023-11-24 14:45] LABS: Add Manual Diff / Slide Review NO; Basophils Absolute Auto 100 /uL (0-100); Eosinophils Absolute Auto 300 /uL (0-450); Eosinophils Percent Auto 3.1 % (2-4); Hematocrit 37.1 % (36-46); Hemoglobin 11.7 g/dL (12.0-16.0); Lymphocytes Absolute Auto 1600 /uL (1100-4500); Lymphocytes Percent Auto 14.4 % (25-40); Mean Corpuscular HGB Conc 31.5 % (30-36); Mean Corpuscular Hemoglobin 24.3 PG (26-34); Mean Corpuscular Volume 77.2 fL (80-100); Monocytes Absolute Auto 700 /uL (0-900); Neutrophils Absolute Auto 8300 /uL (1500-7000); Neutrophils Percent Auto 75.5 % (50-75); Platelet Count 384 X10^3/uL (150-400); Red Blood Cell Count 4.81 X10^6/uL (4.0-5.2); Red Cell Distribution Width 16.8 % (11.6-14.8)
[2023-11-24 14:56] LABS: Alanine Aminotransferase 13 IU/L (<35); Albumin 4.2 g/dL (3.5-5.0); Albumin Globulin Ratio 1.3 (1.0-2.8); Alkaline Phosphatase 111 U/L (38-126); Aspartate Aminotransferase 20 IU/L (14-36); BUN Creatinine Ratio 23.7 (6-22); Bilirubin Total 0.5 mg/dL (0.2-1.3); Blood Urea Nitrogen 14 mg/dL (7-17); Carbon Dioxide 26 mmol/L (22-32); Chloride 105 mmol/L (98-107); Estimated Glomerular Filt Rate > 60 mL/min (>60); Globulin 3.3 g/dL (1.7-4.1); Glucose 138 mg/dL (80-110); HEMOLYSIS < 15 (0-50); Sodium 138 mmol/L (137-145); Total Protein 7.5 g/dL (6.3-8.2)
[2023-11-24 15:08] LABS: Appearance Urine UA CLOUDY; Bilirubin Urine UA NEGATIVE (NEGATIVE); Color Urine UA YELLOW; Glucose Urine UA 3+ g/dL (Negative); Ketones Urine UA NEGATIVE (NEGATIVE); Leukocyte Esterase Urine UA 2+ (NEGATIVE); Nitrite Urine UA NEGATIVE (Negative); Occult Blood Urine UA TRACE-INTACT (Negative); Protein Urine UA NEGATIVE (Negative); Urobilinogen Urine UA 0.2 E.U./dL (0.2)
[2023-11-24 15:11] LABS: pH Urine UA 5.5 (4.5-8.0)
[2023-11-24 15:19] LABS: RBC Urine None Seen (0-5/HPF); Urine Volume 10mL (spun); WBC Urine 5-10/HPF (0-5/HPF)
[2023-11-24 15:20] LABS: Bacteria Urine Many (>30); Culture Indicated Urine Specimen Cultured; Squamous Epithelial Cell Urine None Seen (0-5/HPF)
[2023-11-24] MEDS: cefUROXime 250 MG TABLET 500 MG PO (16:36)
== END 2023-11-24 17:01 | disposition home or self-care (01) ==
PROVIDERS: Emergency Provider Emergency Medicine; PCP Family Medicine
DX: S22.32XA Fracture of one rib, left side, initial encounter for closed fracture (principal); R07.89 Other chest pain; N39.0 Urinary tract infection, site not specified; W06.XXXA Fall from bed, initial encounter
CPT/HCPCS: 36415; 71045; 74177; 80053; 81001; 85025; 87086; 99284; Q9967

== ENCOUNTER → 2023-11-30 06:26 | Outpatient (ROUT) | payer MEDICARE, MEDICAID, SELFPAY ==
[2023-11-30 08:17] LABS: Prothrombin Time 69.3 SECONDS (9.4-12.5)
[2023-11-30 08:43] LABS: INR 5.9 (0.9-1.3)
== END ==
LOC: NUCM 06:27
PROVIDERS: Registered Nurse; PCP Family Medicine
DX: I48.91 Unspecified atrial fibrillation (principal)
CPT/HCPCS: 36415; 85610

== ENCOUNTER → 2023-12-01 14:39 | Outpatient (ROUT) | payer MEDICARE, MEDICAID, SELFPAY ==
[2023-12-01 14:46] LABS: Appearance Urine UA SL CLOUDY; Bilirubin Urine UA NEGATIVE (NEGATIVE); Color Urine UA YELLOW; Glucose Urine UA 3+ g/dL (Negative); Ketones Urine UA NEGATIVE (NEGATIVE); Leukocyte Esterase Urine UA 1+ (NEGATIVE); Nitrite Urine UA NEGATIVE (Negative); Occult Blood Urine UA TRACE-INTACT (Negative); Protein Urine UA NEGATIVE (Negative); Specific Gravity Urine UA 1.015 (1.000-1.035); Urobilinogen Urine UA 0.2 E.U./dL (0.2)
[2023-12-01 14:48] LABS: pH Urine UA 5.5 (4.5-8.0)
[2023-12-01 14:54] LABS: Bacteria Urine None Seen; Culture Indicated Urine Specimen Cultured; RBC Urine None Seen (0-5/HPF); Squamous Epithelial Cell Urine 1-5 /HPF (0-5/HPF); Urine Volume 10mL (spun); WBC Urine 30-100/HPF (0-5/HPF)
== END ==
PROVIDERS: PCP Family Medicine; Visit Provider Registered Nurse
DX: Z13.89 Encounter for screening for other disorder (principal)
CPT/HCPCS: 81001; 87086

== ENCOUNTER → 2023-12-07 06:17 | Outpatient (ROUT) | payer MEDICARE, MEDICAID, SELFPAY ==
[2023-12-07 07:28] LABS: Hematocrit 36.5 % (36-46); Hemoglobin 11.3 g/dL (12.0-16.0); Mean Corpuscular HGB Conc 30.8 % (30-36); Mean Corpuscular Volume 77.8 fL (80-100); Platelet Count 351 X10^3/uL (150-400); Red Blood Cell Count 4.69 X10^6/uL (4.0-5.2); Red Cell Distribution Width 17.1 % (11.6-14.8); White Blood Cell Count 8.8 X10^3/uL (4.5-11.0)
[2023-12-07 07:35] LABS: INR 1.4 (0.9-1.3); Prothrombin Time 16.5 SECONDS (9.4-12.5)
== END ==
PROVIDERS: PCP Family Medicine; Visit Provider Registered Nurse
DX: E11.9 Type 2 diabetes mellitus without complications (principal); E03.9 Hypothyroidism, unspecified
CPT/HCPCS: 36415; 85027; 85610

== ENCOUNTER → 2023-12-14 06:23 | Outpatient (ROUT) | payer MEDICARE, MEDICAID, SELFPAY ==
[2023-12-14 08:21] LABS: INR 2.3 (0.9-1.3); Prothrombin Time 26.1 SECONDS (9.4-12.5)
== END ==
PROVIDERS: PCP Family Medicine; Visit Provider Registered Nurse
DX: E03.9 Hypothyroidism, unspecified (principal)
CPT/HCPCS: 36415; 85610

== ENCOUNTER → 2023-12-21 06:07 | Outpatient (ROUT) | payer MEDICARE, MEDICAID, SELFPAY ==
[2023-12-21 07:39] LABS: INR 3.1 (0.9-1.3)
== END ==
PROVIDERS: PCP Family Medicine; Visit Provider Registered Nurse
DX: E03.9 Hypothyroidism, unspecified (principal)
CPT/HCPCS: 36415; 85610

== ENCOUNTER → 2023-12-28 06:23 | Outpatient (ROUT) | payer MEDICARE, MEDICAID, SELFPAY ==
[2023-12-28 09:00] LABS: INR 2.4 (0.9-1.3); Prothrombin Time 26.2 SECONDS (9.4-12.5)
== END ==
PROVIDERS: PCP Family Medicine; Visit Provider Registered Nurse
DX: E03.9 Hypothyroidism, unspecified (principal)
CPT/HCPCS: 36415; 85610

== ENCOUNTER → 2024-01-11 06:15 | Outpatient (ROUT) | payer MEDICARE, MEDICAID, SELFPAY ==
[2024-01-11 08:06] LABS: INR 2.7 (0.9-1.3); Prothrombin Time 30.2 SECONDS (9.4-12.5)
== END ==
PROVIDERS: PCP Family Medicine; Visit Provider Registered Nurse
DX: E03.9 Hypothyroidism, unspecified (principal)
CPT/HCPCS: 36415; 85610

== ENCOUNTER → 2024-02-01 06:31 | Outpatient (ROUT) | payer MEDICARE, MEDICAID, SELFPAY ==
[2024-02-01 08:20] LABS: INR 3.1 (0.9-1.3); Prothrombin Time 33.9 SECONDS (9.4-12.5)
== END ==
PROVIDERS: PCP Family Medicine; Visit Provider Registered Nurse
DX: E03.9 Hypothyroidism, unspecified (principal)
CPT/HCPCS: 36415; 85610

== ENCOUNTER → 2024-02-22 06:16 | Outpatient (ROUT) | payer MEDICARE, MEDICAID, SELFPAY ==
[2024-02-22 08:40] LABS: INR 2.8 (0.9-1.3); Prothrombin Time 31.2 SECONDS (9.4-12.5)
== END ==
PROVIDERS: Registered Nurse; PCP Family Medicine
DX: E03.9 Hypothyroidism, unspecified (principal)
CPT/HCPCS: 36415; 85610

== ENCOUNTER 2024-02-29 06:41 | Emergency (ER) | payer MEDICARE, MEDICAID, SELFPAY ==
[2024-02-29] VITALS (9 sets, daily range): BP systolic 129–162; BP diastolic 60–72; PULSE 83–90; RESP 17–18; TEMP 36.3; O2SAT 95–99; BMI 21.9
--- NOTE | 2024-02-29 06:47 | DI.CT.S_ITS ---
PROCEDURE: CT CERVICAL SPINE WO CON INDICATIONS: fall, hit head on warfarin, hematoma TECHNIQUE: Noncontrast 3 mm thick sections acquired from the skull base to the T4 level. Sagittal and coronal reformats were then constructed. For radiation dose reduction, the following was used: automated exposure control, adjustment of mA and/or kV according to patient size. COMPARISON: [facility], CT, CT CERVICAL SPINE WO CON, 11/09/2023, 10:13. FINDINGS: Image quality: Excellent. Bones: No fractures or dislocations. Visualized superior ribs are intact. Mild degenerative changes, similar. Prior left mastoidectomy. Soft tissues: Prevertebral soft tissues are normal in thickness. No paravertebral hematomas. No apical pneumothoraces. IMPRESSION: No acute osseous abnormality. Dictated by: Adrian Rebollar M.D. on 02/29/2024 at 7:56 Approved by: Adrian Rebollar M.D. on 02/29/2024 at 8:01
--- NOTE | 2024-02-29 06:53 | ED.FALL ---
HPI - Fall <Martha Vila, - Last Filed: 03/01/24 05:45> General Chief Complaint: Trauma Stated Complaint: fall on thinners, head lac Time Seen by Provider: 02/29/24 06:47 Source: patient, EMS, RN notes reviewed and old records reviewed Mode of arrival: EMS History of Present Illness HPI Narrative: 83-year-old female from [facility], history of diabetes, hypothyroidism, chronic atrial fibrillation on warfarin who presents with complaint of fall from bed. Patient states she just rolled out of bed and landed on her left side hitting her head and also has superficial cut on her face. Patient states she has a little bit of a headache and a bump. She denies any other injuries besides the laceration on her face. Patient states her neck does not really hurt denies back pain no chest pain or shortness of breath. No abdominal back or flank pain. No nausea or vomiting. No other GI or urinary symptoms reported. Patient notes her allergies. Related Data Home Medications Medication Instructions Recorded Confirmed acetaminophen 500 mg tablet 1,000 mg PO QID PRN 11/23/23 11/23/23 cholecalciferol (vitamin D3) 50 50 mcg PO DAILY 11/23/23 11/23/23 mcg (2,000 unit) capsule empagliflozin 10 mg tablet 10 mg PO DAILY 11/23/23 11/23/23 (Jardiance) glipizide 10 mg tablet 10 mg PO DAILY 11/23/23 11/23/23 levothyroxine 112 mcg tablet 112 mcg PO DAILY 11/23/23 11/23/23 mecobalamin (vitamin B12) 1,000 1,000 mcg sublingual DAILY 11/23/23 11/23/23 mcg disintegrating tablet,sublingual metformin 1,000 mg tablet 1,000 mg PO BID 11/23/23 11/23/23 omeprazole 20 mg tablet,delayed 20 mg PO BID 11/23/23 11/23/23 release venlafaxine 75 mg tablet 75 mg PO BID 11/23/23 11/23/23 levalbuterol tartrate 45 2 puff inhalation Q4-6H PRN 11/24/23 11/24/23 mcg/actuation aerosol inhaler (Xopenex HFA) warfarin 2.5 mg tablet 2.5 mg PO 4XW 11/24/23 11/24/23 warfarin 3 mg tablet 3 mg PO Q OTHER DAY 11/24/23 11/24/23 Previous Rx's Medication Instructions Recorded ciprofloxacin HCl 250 mg tablet 250 mg PO BID #10 tabs 11/22/23 albuterol sulfate 90 mcg/actuation 2 puff inhalation Q6H PRN 11/24/23 aerosol inhaler shortness of breath or wheezing #8.5 grams cefuroxime axetil 500 mg tablet 500 mg PO BID #14 tabs 11/24/23 Allergies Allergy/AdvReac Type Severity Reaction Status Date / Time adhesive tape Allergy Verified 11/22/23 13:16 apixaban [From Eliquis] Allergy Verified 11/22/23 13:16 Cholinesterase Allergy Verified 11/22/23 13:16 Inhibitor(Carbamate) dulaglutide Allergy Verified 11/22/23 13:16 NSAIDS (Non-Steroidal Allergy Verified 11/22/23 13:16 Anti-Inflamma Sulfa (Sulfonamide Allergy Verified 11/22/23 13:16 Antibiotics) Review of Systems <Martha Vila DO - Last Filed: 03/01/24 05:45> Review of Systems ROS Unobtainable: All systems reviewed & are unremarkable except as noted in HPI and below Patient History <Martha Vila DO - Last Filed: 03/01/24 05:45> Medical History Chronic atrial fibrillation Social History Smoking Status: Never smoker Smoking Status: Never smoker Exam <Martha Vila DO - Last Filed: 03/01/24 05:45> Narrative Exam Narrative: GEN: Patient appears in mild distress. HEAD: Patient has a left parietal hematoma, no raccoon/Jones sign. NECK: Nontender, painless range of motion, trachea midline Mid Nexus criteria, no midline line tenderness, distracting injury, altered mental status, neuro deficit, recent EtOH. EYES: PERRLA, EOMI ENT: External inspection normal except for superficial laceration extending from the lateral left side of the nose along the edge of the left nare and along edge of nasolabial fold appears to be superficial with no gapping, trachea is midline, TM's are normal no hemotypanum, Nares are clear, no septal hematoma, no dental or oral injury, airway is normal and with normal occlusion, No bony tenderness RESP: Chest is nontender and has symmetric movement, no ecchymosis, breath sounds are normal no crackles, wheezes or rales CVS: Heart sounds are normal, no murmur noted, No JVD. ABG/GI: Nontender, soft, normal bowel sounds, no distention, no organomegaly, pelvic rock is negative NEURO: Oriented AOx3, neuro is grossly intact, sensation and motor is normal all 4 extremities moving, cranial nerves II through XII are intact, GCS is 15 PSYCH: Normal mood and affect SKIN: Intact, warm and dry, no crepitus and without decubitus BACK: No CVA tenderness, no vertebral tenderness, no step-off's, no crepitus EXT: Atraumatic except for abrasion on left knee. Hips are nontender, normal range of motion of extremities with normal tendon exam. Initial Vital Signs Initial Vital Signs: Vital Signs Pulse Rate 86 02/29/24 06:45 Blood Pressure 162/67 H 02/29/24 06:45 Pulse Oximetry 98 02/29/24 06:45 <Ashlyn Elmore MD - Last Filed: 02/29/24 09:00> Initial Vital Signs Initial Vital Signs: Vital Signs Pulse Rate 86 02/29/24 06:45 Blood Pressure 162/67 H 02/29/24 06:45 Pulse Oximetry 98 02/29/24 06:45 Course <Martha Vila DO - Last Filed: 03/01/24 05:45> Orders Ordered: Discontinued Medications Acetaminophen (Acetaminophen 325 Mg Tablet) 975 mg PO NOW ONE Stop: 02/29/24 08:47 Last Admin: 02/29/24 09:02 Dose: 975 mg Documented By: MPO Vital Signs Vital signs: Vital Signs - 8 hr 02/29/24 06:48 Temperature 97.4 F L Pulse Rate 89 Respiratory Rate 17 Blood Pressure 162/67 H Pulse Oximetry 98 Oxygen Delivery Method Room Air <Ashlyn Elmore MD - Last Filed: 02/29/24 09:00> Orders Ordered: Discontinued Medications Acetaminophen (Acetaminophen 325 Mg Tablet) 975 mg PO NOW ONE Stop: 02/29/24 08:47 Last Admin: 02/29/24 09:02 Dose: 975 mg Documented By: JOVANNY Vital Signs Vital signs: Vital Signs - 8 hr 02/29/24 06:48 Temperature 97.4 F L Pulse Rate 89 Respiratory Rate 17 Blood Pressure 162/67 H Pulse Oximetry 98 Oxygen Delivery Method Room Air MDM - Fall <Martha Vila - Last Filed: 03/01/24 05:45> Lab Data Labs: Lab Results 02/29/24 Range/Units 07:18 PT 34.2 H (9.4-12.5) SECONDS INR 3.1 H (0.9-1.3) Urine Dip Bedside Urine Glucose 1000 mg/dl Bedside Urine Bilirubin - Negative Bedside Urine Ketone - Negative Urine Specific Catarina 1.020 Bedside Urine Occult Blood - Negative Bedside Urine pH 5.5 Bedside Urine Protein - Negative Bedside Urine Urobilinogen - Negative Bedside Urine Nitrite - Negative Bedside Urine Leukocytes - Negative Esterase [facility] Narrative Medical decision making narrative: Patient signed out to Dr. Elmore while awaiting workup. <Ashlyn Elmore MD - Last Filed: 02/29/24 09:00> Lab Data Labs: Lab Results 02/29/24 Range/Units 07:18 PT 34.2 H (9.4-12.5) SECONDS INR 3.1 H (0.9-1.3) Urine Dip Bedside Urine Glucose 1000 mg/dl Bedside Urine Bilirubin - Negative Bedside Urine Ketone - Negative Urine Specific Catarina 1.020 Bedside Urine Occult Blood - Negative Bedside Urine pH 5.5 Bedside Urine Protein - Negative Bedside Urine Urobilinogen - Negative Bedside Urine Nitrite - Negative Bedside Urine Leukocytes - Negative Esterase [facility] Narrative Medical decision making narrative: Patient signed out to Dr. Elmore while awaiting workup. 83-year-old woman with a history of diabetes, hypothyroidism, emphysema comes over from [facility] after quite literally rolling out of bed. She has a small abrasion to the upper portion of her forehead on the left side and a small scratch along the nasolabial fold on the left side. She has not complaining of additional pain. CT scan of the head and cervical spine show no fractures or intracranial bleed Her INR is therapeutic at 3.1 Patient is re-examined. She does request some Tylenol which is provided. Discussed the bruise that is going to develop from the contusion to her left upper forehead. The scratch over the nasolabial fold will resolve and this too is resolved. She is able to get up and ambulate independently without significant pain. At this point the patient is safe for discharge Discharge Plan Departure Patient Disposition: Home Clinical Impression: Anticoagulated Accidental fall from bed Qualifiers: Encounter type: initial encounter Qualified Code(s): W06.XXXA - Fall from bed, initial encounter Contusion of forehead Qualifiers: Encounter type: initial encounter Qualified Code(s): S00.83XA - Contusion of other part of head, initial encounter Scratch of face Qualifiers: Encounter type: initial encounter Qualified Code(s): S00.81XA - Abrasion of other part of head, initial encounter Instructions: DI for Closed Head Injury Activity Restrictions/Additional Instructions: Thank you for coming in today I am sorry that you fell out of bed. Fortunately there is no significant injury that would require hospitalization today. You do not have bleeding inside your skull, there was no skull fractures and no neck injury. Your Coumadin level is perfect, it is therapeutic at 3.1 today You are going to have a bruise developing over the left side of your forehead. This will resolve. The scratch to the side of your face is going to resolve without any other problems Please continue all of your usual medications If you find that you are getting worse or develop any new symptoms, please feel free to return to the emergency department for further evaluation. Prescriptions: No Action ciprofloxacin HCl 250 mg tablet 250 mg PO BID Qty: 10 0RF acetaminophen 500 mg tablet 1,000 mg PO QID PRN Jardiance 10 mg tablet 10 mg PO DAILY glipizide 10 mg tablet 10 mg PO DAILY levothyroxine 112 mcg tablet 112 mcg PO DAILY metformin 1,000 mg tablet 1,000 mg PO BID omeprazole 20 mg tablet,delayed release (DR/EC) 20 mg PO BID venlafaxine 75 mg tablet 75 mg PO BID mecobalamin (vitamin B12) 1,000 mcg tablet,disintegrating 1,000 mcg sublingual DAILY Rx Instructions: place tablet under tongue and allow to dissolve for at least30 secs before swallowing cholecalciferol (vitamin D3) 50 mcg (2,000 unit) capsule 50 mcg PO DAILY warfarin 2.5 mg tablet 2.5 mg PO 4XW warfarin 3 mg tablet 3 mg PO Q OTHER DAY Rx Instructions: on odd numbered days levalbuterol tartrate [Xopenex HFA] 45 mcg/actuation HFA aerosol inhaler 2 puff inhalation Q4-6H PRN cefuroxime axetil 500 mg tablet 500 mg PO BID Qty: 14 0RF albuterol sulfate 90 mcg/actuation HFA aerosol inhaler 2 puff inhalation Q6H PRN (Reason: shortness of breath or wheezing) Qty: 8.5 0RF Referrals: Margarita Payne DO [Primary Care Provider] - Stand Alone Forms: Patient Portal/API/Survey
--- NOTE | 2024-02-29 07:26 | DI.CT.S_ITS ---
PROCEDURE: CT HEAD/BRAIN WO CON INDICATIONS: fall, hit head on warfarin, hematoma TECHNIQUE: Noncontrast 4.5 mm thick angled axial sections acquired from the foramen magnum to the vertex, with coronal and sagittal reformats. For radiation dose reduction, the following was used: automated exposure control, adjustment of mA and/or kV according to patient size. COMPARISON: [facility], CT, CT HEAD/BRAIN WO CON, 11/09/2023, 10:13. FINDINGS: Image quality: Diagnostic. CSF spaces: Basal cisterns are patent. No extra-axial fluid collections. Ventricles are normal in size and shape. Brain: No midline shift. No intracranial masses or hemorrhage. No area of hypodensity in a large vascular distribution to suggest acute infarction. Periventricular hypodensity consistent with chronic microvascular ischemic change. Age-related parenchymal loss. Skull and face: Prior left mastoidectomy. Calvarium and visualized facial bones are intact, without suspicious lesions. Possible contusion at the left forehead versus is sequelae of prior hematoma. Sinuses: Visualized sinuses and right mastoid are clear. IMPRESSION: No acute intracranial hemorrhage. Dictated by: Adrian Rebollar M.D. on 02/29/2024 at 7:52 Approved by: Adrian Rebollar M.D. on 02/29/2024 at 7:56
[2024-02-29 07:31] LABS: INR 3.1 (0.9-1.3); Prothrombin Time 34.2 SECONDS (9.4-12.5)
--- NOTE | 2024-02-29 07:51 | PC.NURSE ---
Assumed care of pt at 0700. Pt alert and pleasantly confused at baseline. TRIALS MANAGER ambulated pt to bathroom. Pt has steady gait and standbuy-1 person assist. Denies pain at this time.
--- NOTE | 2024-02-29 08:58 | PC.NURSE ---
Addendum entered by Nakia Caballero R.N. 02/29/24 09:39: 0939 [facility] staff called back to update that they are calling for transport van to come and pick pt up. [facility] RN stated that she would call back with ETA. Addendum entered by Nakia Caballero R.N. 02/29/24 09:21: 0921 2nd attempt to contact [facility]. Message left. Original Note: 0858 Message left for [facility]. Pt to dc and need clothing and wheelchair.
[2024-02-29] MEDS: ACETAMINOPHEN 325 MG TABLET 975 MG PO (09:02)
--- NOTE | 2024-02-29 09:42 | PC.NURSE ---
Printed copy of labs - PT & INR and CT Reports - CT Head & CT C-Spine and put into patients copy of discharge paperwork. Reviewed discharge with patient, patient dressed, PIV removed, VS updated and awaiting ride/transport from [facility] back to facility.
== END 2024-02-29 09:45 | disposition home or self-care (01) ==
PROVIDERS: Emergency Provider Emergency Medicine; PCP Family Medicine
DX: S00.83XA Contusion of other part of head, initial encounter (principal); S00.81XA Abrasion of other part of head, initial encounter; S01.21XA Laceration without foreign body of nose, initial encounter; S80.212A Abrasion, left knee, initial encounter; Z79.01 Long term (current) use of anticoagulants; W18.09XA Striking against other object with subsequent fall, initial encounter; W06.XXXA Fall from bed, initial encounter; R40.2412 Glasgow coma scale score 13-15, at arrival to emergency department
CPT/HCPCS: 36415; 70450; 72125; 81003; 85610; 99284

== ENCOUNTER → 2024-03-07 06:08 | Outpatient (ROUT) | payer MEDICARE, MEDICAID, SELFPAY ==
[2024-03-07 07:53] LABS: INR 2.7 (0.9-1.3)
== END ==
PROVIDERS: PCP Family Medicine; Visit Provider Registered Nurse
DX: E03.9 Hypothyroidism, unspecified (principal)
CPT/HCPCS: 36415; 85610

== ENCOUNTER → 2024-03-21 06:11 | Outpatient (ROUT) | payer MEDICARE, MEDICAID, SELFPAY ==
[2024-03-21 08:20] LABS: INR 3.2 (0.9-1.3); Prothrombin Time 35.3 SECONDS (9.4-12.5)
== END ==
PROVIDERS: PCP Family Medicine; Visit Provider Registered Nurse
DX: E03.9 Hypothyroidism, unspecified (principal)
CPT/HCPCS: 36415; 85610

== ENCOUNTER → 2024-03-28 06:13 | Outpatient (ROUT) | payer MEDICARE, MEDICAID, SELFPAY ==
[2024-03-28 07:53] LABS: INR 3.1 (0.9-1.3); Prothrombin Time 34.1 SECONDS (9.4-12.5)
== END ==
PROVIDERS: PCP Family Medicine; Visit Provider Registered Nurse
DX: R79.1 Abnormal coagulation profile (principal)
CPT/HCPCS: 36415; 85610

== ENCOUNTER → 2024-04-11 06:17 | Outpatient (ROUT) | payer MEDICARE, MEDICAID, SELFPAY ==
[2024-04-11 09:05] LABS: INR 2.3 (0.9-1.3)
== END ==
PROVIDERS: PCP Family Medicine; Visit Provider Registered Nurse
DX: R79.1 Abnormal coagulation profile (principal)
CPT/HCPCS: 36415; 85610

== ENCOUNTER → 2024-04-24 20:48 | Outpatient (ROUT) | payer MEDICARE, MEDICAID, SELFPAY ==
[2024-04-24 20:59] LABS: Appearance Urine UA CLEAR; Bilirubin Urine UA NEGATIVE (NEGATIVE); Color Urine UA YELLOW; Glucose Urine UA 3+ g/dL (Negative); Ketones Urine UA NEGATIVE (NEGATIVE); Leukocyte Esterase Urine UA NEGATIVE (NEGATIVE); Nitrite Urine UA NEGATIVE (Negative); Occult Blood Urine UA NEGATIVE (Negative); Protein Urine UA NEGATIVE (Negative); Urobilinogen Urine UA 0.2 E.U./dL (0.2)
[2024-04-24 21:13] LABS: Bacteria Urine Moderate (10-30); RBC Urine None Seen (0-5/HPF); Squamous Epithelial Cell Urine 1-5 /HPF (0-5/HPF); Urine Volume 10mL (spun); WBC Urine 10-30/HPF (0-5/HPF); pH Urine UA 5.5 (4.5-8.0)
== END ==
PROVIDERS: PCP Family Medicine; Visit Provider Internal Medicine
DX: N39.0 Urinary tract infection, site not specified (principal)
CPT/HCPCS: 81001; 87077; 87086

== ENCOUNTER → 2024-05-02 06:23 | Outpatient (ROUT) | payer MEDICARE, MEDICAID, SELFPAY ==
[2024-05-02 07:55] LABS: INR 2.6 (0.9-1.3); Prothrombin Time 28.9 SECONDS (9.4-12.5)
== END ==
PROVIDERS: PCP Family Medicine; Visit Provider Registered Nurse
DX: E03.9 Hypothyroidism, unspecified (principal)
CPT/HCPCS: 36415; 85610

== ENCOUNTER → 2024-05-07 16:59 | Outpatient (ROUT) | payer MEDICARE, MEDICAID, SELFPAY ==
[2024-05-07 17:17] LABS: Appearance Urine UA CLEAR; Bilirubin Urine UA NEGATIVE (NEGATIVE); Color Urine UA YELLOW; Glucose Urine UA 3+ g/dL (Negative); Ketones Urine UA TRACE (NEGATIVE); Leukocyte Esterase Urine UA NEGATIVE (NEGATIVE); Nitrite Urine UA NEGATIVE (Negative); Occult Blood Urine UA NEGATIVE (Negative); Protein Urine UA NEGATIVE (Negative); Urobilinogen Urine UA 0.2 E.U./dL (0.2)
[2024-05-07 17:26] LABS: Bacteria Urine Occasional (0-1); Culture Indicated Urine Cult Not Indicated; RBC Urine 0-1/HPF (0-5/HPF); Squamous Epithelial Cell Urine 0-1 /HPF (0-5/HPF); Urine Volume 10mL (spun); WBC Urine 1-5/HPF (0-5/HPF)
== END ==
PROVIDERS: PCP Family Medicine; Visit Provider Internal Medicine
DX: N39.0 Urinary tract infection, site not specified (principal)
CPT/HCPCS: 81001

== ENCOUNTER → 2024-05-23 06:13 | Outpatient (ROUT) | payer MEDICARE, MEDICAID, SELFPAY ==
[2024-05-23 08:25] LABS: Prothrombin Time 22.8 SECONDS (9.4-12.5)
== END ==
PROVIDERS: PCP Family Medicine; Visit Provider Registered Nurse
DX: E03.9 Hypothyroidism, unspecified (principal)
CPT/HCPCS: 36415; 85610

== ENCOUNTER → 2024-06-06 06:08 | Outpatient (ROUT) | payer MEDICARE, MEDICAID, SELFPAY ==
[2024-06-06 08:14] LABS: INR 2.5 (0.9-1.3); Prothrombin Time 27.9 SECONDS (9.4-12.5)
== END ==
LOC: LAB 06:08
PROVIDERS: PCP Family Medicine; Visit Provider Registered Nurse
DX: E03.9 Hypothyroidism, unspecified (principal)
CPT/HCPCS: 36415; 85610

== ENCOUNTER → 2024-06-27 06:08 | Outpatient (ROUT) | payer MEDICARE, MEDICAID, SELFPAY ==
[2024-06-27 10:03] LABS: INR 2.3 (0.9-1.3); Prothrombin Time 25.1 SECONDS (9.4-12.5)
== END ==
LOC: LAB 06:08
PROVIDERS: PCP Family Medicine; Visit Provider Registered Nurse
DX: E03.9 Hypothyroidism, unspecified (principal)
CPT/HCPCS: 36415; 85610

== ENCOUNTER 2024-07-11 04:55 | Inpatient (IN) | payer MEDICARE, MEDICAID, SELFPAY ==
[2024-07-11] VITALS (17 sets, daily range): BP systolic 106–212; BP diastolic 47–98; PULSE 92–107; RESP 16–18; TEMP 35.8–37.2; O2SAT 95–99; BMI 147.2
--- NOTE | 2024-07-11 05:02 | DI.RAD.S_ITS ---
PROCEDURE: XR HIP W PEL IF DONE LT 2V INDICATIONS: fall with pain to left hip TECHNIQUE: AP pelvis with lateral view(s) of the left hip(s). COMPARISON: None. FINDINGS: Bones: Right hip poonam fixation. Hardware is intact without hardware fracture or periprosthetic lucency to suggest loosening. Alignment is stable. Displaced and angulated left femoral intertrochanteric fracture. No dislocation at the hip joint. Soft tissues: The visualized bowel gas pattern is normal. No suspicious soft tissue calcifications. IMPRESSION: Left hip displaced intertrochanteric fracture. The above findings are concordant with preliminary report. Dictated by: Jennifer Gleason M.D. on 07/11/2024 at 10:54 Approved by: Jennifer Gleason M.D. on 07/11/2024 at 11:15
--- NOTE | 2024-07-11 05:07 | DI.CT.S_ITS ---
PROCEDURE: CT CERVICAL SPINE WO CON INDICATIONS: trauma TECHNIQUE: Noncontrast 3 mm thick sections acquired from the skull base to the T4 level. Sagittal and coronal reformats were then constructed. For radiation dose reduction, the following was used: automated exposure control, adjustment of mA and/or kV according to patient size. COMPARISON: [facility], CT, CT CERVICAL SPINE WO CON, 02/29/2024, 7:01. FINDINGS: Image quality: Excellent. Bones: No fractures or dislocations. Visualized superior ribs are intact. Multilevel degenerative changes. Soft tissues: Prevertebral soft tissues are normal in thickness. No paravertebral hematomas. No apical pneumothoraces. IMPRESSION: No displaced fracture or traumatic subluxation. The above findings are concordant with preliminary report. Dictated by: Jennifer Gleason M.D. on 07/11/2024 at 8:20 Approved by: Jennifer Gleason M.D. on 07/11/2024 at 8:21
--- NOTE | 2024-07-11 05:07 | DI.CT.S_ITS ---
PROCEDURE: CT HEAD/BRAIN WO CON INDICATIONS: Trauma TECHNIQUE: Noncontrast 4.5 mm thick angled axial sections acquired from the foramen magnum to the vertex, with coronal and sagittal reformats. For radiation dose reduction, the following was used: automated exposure control, adjustment of mA and/or kV according to patient size. COMPARISON: [facility], CT, CT HEAD/BRAIN WO CON, 02/29/2024, 7:01. FINDINGS: Image quality: Diagnostic. CSF spaces: Basal cisterns are patent. No extra-axial fluid collections. The ventricles are symmetric in size and shape. Brain: No intracranial bleeds or mass effect. There is cerebral volume loss, with resultant ventricular and sulcal prominence. There are periventricular and deep white matter chronic small vessel ischemic changes. There is intracranial internal carotid artery atherosclerosis. Skull and face: Calvarium and visualized facial bones appear intact, without suspicious lesions. Sinuses: Visualized sinuses and mastoids are clear. IMPRESSION: 1. No acute intracranial process. 2. Moderate atrophy and chronic microvascular ischemic changes. The above findings are concordant with preliminary report. Dictated by: Jennifer Gleason M.D. on 07/11/2024 at 8:19 Approved by: Jennifer Gleason M.D. on 07/11/2024 at 8:20
[2024-07-11] MEDS: MORPHINE 4 MG/ML INJ IV (05:11)
--- NOTE | 2024-07-11 05:12 | ED_ITS ---
HPI - Fall <Brian Packer, DO - Last Filed: 07/11/24 06:23> General Chief Complaint: Fall Stated Complaint: GLF L hip Time Seen by Provider: 07/11/24 05:12 Source: patient and EMS Mode of arrival: EMS History of Present Illness HPI Narrative: 83-year-old female with past medical history of AFib on warfarin, hypothyroidism, diabetes, comes into the ED via EMS from facility for evaluation of left hip pain, patient had mechanical trip and fall when she woke up to go to the restroom, states he is she is normally unstable uses a walker at home but states that she did not use it this time therefore is what caused her fall. Patient states that she is unsure if she hit her head but no LOC. her only main complaint is left hip pain, did receive fentanyl by EMS prior to arrival with mild relief of pain. On exam patient with decreased range of motion of her left hip secondary to pain, she is keeping it slightly flexed. She is not complaining of any other pain or injuries at this time. Related Data Home Medications Medication Instructions Recorded Confirmed acetaminophen 500 mg tablet 1,000 mg PO QID PRN Pain, Moderate 11/23/23 07/11/24 cholecalciferol (vitamin D3) 50 50 mcg PO DAILY 11/23/23 07/11/24 mcg (2,000 unit) capsule empagliflozin 10 mg tablet 10 mg PO DAILY 11/23/23 07/11/24 (Jardiance) levothyroxine 112 mcg tablet 112 mcg PO DAILY 11/23/23 07/11/24 metformin 1,000 mg tablet 1,000 mg PO BID 11/23/23 07/11/24 omeprazole 20 mg tablet,delayed 20 mg PO BID 11/23/23 07/11/24 release venlafaxine 75 mg tablet 75 mg PO BID 11/23/23 07/11/24 levalbuterol tartrate 45 2 puff inhalation Q4-6H PRN 11/24/23 07/11/24 mcg/actuation aerosol inhaler Shortness Of Breath Or Wheezing (Xopenex HFA) warfarin 2.5 mg tablet 2.5 mg PO DAILY 11/24/23 07/11/24 cyanocobalamin (vitamin B-12) 1,000 mcg PO DAILY 07/11/24 07/11/24 1,000 mcg tablet memantine 5 mg tablet 5 mg PO BID 07/11/24 07/11/24 propafenone 425 mg 425 mg PO DAILY 07/11/24 07/11/24 capsule,extended release 12 hr Allergies Allergy/AdvReac Type Severity Reaction Status Date / Time adhesive tape Allergy Verified 11/22/23 13:16 apixaban [From Eliquis] Allergy Verified 11/22/23 13:16 Cholinesterase Allergy Verified 11/22/23 13:16 Inhibitor(Carbamate) dulaglutide Allergy Verified 11/22/23 13:16 NSAIDS (Non-Steroidal Allergy Verified 11/22/23 13:16 Anti-Inflamma Sulfa (Sulfonamide Allergy Verified 11/22/23 13:16 Antibiotics) Review of Systems <Brian Packer DO - Last Filed: 07/11/24 06:23> Review of Systems Narrative: General: Denies fever, chills, weight loss HEENT: Denies headache, eye drainage, eye irritation, head trauma, sore throat, voice change Cardiovascular: Denies any chest pain, palpitations, tachycardia Respiratory: Denies any shortness of breath, cough, wheeze, stridor GI/: Denies any abdominal pain, nausea, vomiting, diarrhea, bright red blood per rectum, melanotic stools, urinary frequency, urinary retention, dysuria, hematuria MSK: Positive left hip pain Skin: Denies any rashes, lesions, discoloration Neuro: Denies any headache, lightheadedness, dizziness, fainting, weakness Psych: Denies SI/HI Patient History <Brian Packer DO - Last Filed: 07/11/24 06:23> Medical History Chronic atrial fibrillation Social History Smoking Status: Never smoker Smoking Status: Never smoker Exam <Brian Packer DO - Last Filed: 07/11/24 06:23> Narrative Exam Narrative: General: Cooperative, well-developed, not in acute distress HEENT: Normocephalic, atraumatic, PERRLA, normal sclera, eyelids normal Neck: Active full range of motion, atraumatic Chest: Normal to inspection, negative crepitus, no overlying erythema ecchymosis Respiratory: Normal respiratory effort, not in acute respiratory distress, clear to auscultation bilaterally negative cough, wheeze, tachypnea, rhonchi, rales Cardiology: Regular rate rhythm negative gallop, murmur, rubs GI/: No tenderness to palpation, soft, non rigid, normal to inspection, exam deferred MSK: Patient with tenderness to palpation of the left greater trochanter on palpation, patient holding her left lower extremity in slight flexion, decreased active passive range of motion of her left hip secondary to pain however neurovascularly intact. There is no other tenderness to palpation of any other bony prominences Skin: No rashes or lesions noted Neuro: Alert awake oriented x3, moves all 4 extremities spontaneously, cranial nerves intact, able to answer all questions appropriately follows commands appropriately Psych: Cooperative, negative suicidal or homicidal ideations Initial Vital Signs Initial Vital Signs: Vital Signs Pulse Rate 92 H 07/11/24 04:59 Blood Pressure 212/98 H 07/11/24 04:59 Pulse Oximetry 99 07/11/24 04:59 <Samm Sears MD - Last Filed: 07/11/24 09:35> Initial Vital Signs Initial Vital Signs: Vital Signs Pulse Rate 92 H 07/11/24 04:59 Blood Pressure 212/98 H 07/11/24 04:59 Pulse Oximetry 99 07/11/24 04:59 Course <Brian Packer DO - Last Filed: 07/11/24 06:23> Orders Ordered: ED Orders 07/11/24 05:02 XR hip w pel LT 2V Stat 07/11/24 05:07 CT cervical spine wo con Stat CT head/brain wo con Stat 07/11/24 05:15 EKG-12 Lead Stat 07/11/24 05:40 CBC Auto Diff [Complete Blood Count AUTO DIFF] Stat CMP [Comprehensive Metabolic Panel] Stat PT [Prothrombin Time INR] Stat PTT Partial Thromboplastin Ronal Stat Hydromorphone HCl (Hydromorphone 0.5 Mg Inj) 0.5 mg IV Q2H PRN PRN Reason: Pain, Severe (7-10) Last Admin: 07/11/24 09:30 Dose: 0.5 mg Documented By: CATHIE Naloxone HCl (Naloxone 0.4 Mg/Ml Vial) 0.2 mg IV Q2MIN PRN PRN Reason: Opiate Reversal Ondansetron HCl (Ondansetron 4 Mg/2 Ml Inj) 4 mg IV Q8HR PRN PRN Reason: Nausea And Vomiting Oxycodone HCl (Oxycodone Ir 5 Mg Tablet) 5 mg PO Q3H PRN PRN Reason: Pain, Moderate (4-6) Discontinued Medications Morphine Sulfate (Morphine 4 Mg/Ml Inj) 4 mg IV NOW ONE Stop: 07/11/24 05:07 Last Admin: 07/11/24 05:11 Dose: 4 mg Documented By: PASCALE Ondansetron HCl (Ondansetron 4 Mg/2 Ml Inj) 4 mg IV NOW ONE Stop: 07/11/24 05:07 Last Admin: 07/11/24 07:27 Dose: Not Given Documented By: CATHIE Vital Signs Vital signs: Vital Signs - 8 hr 07/11/24 04:59 07/11/24 04:59 07/11/24 05:00 Temperature Pulse Rate 92 H 92 H Respiratory Rate Blood Pressure 212/98 H Pulse Oximetry 99 99 Oxygen Delivery Method 07/11/24 05:03 07/11/24 05:30 07/11/24 06:00 Temperature 97.5 F L Pulse Rate 93 H 93 H 95 H Respiratory Rate 16 Blood Pressure 212/98 H Pulse Oximetry 99 98 97 Oxygen Delivery Method Room Air 07/11/24 06:15 07/11/24 06:15 07/11/24 06:30 Temperature Pulse Rate 95 H Respiratory Rate Blood Pressure 178/76 H 189/79 H Pulse Oximetry 98 Oxygen Delivery Method 07/11/24 06:30 07/11/24 07:00 07/11/24 07:11 Temperature Pulse Rate 98 H 101 H Respiratory Rate 18 Blood Pressure 172/71 H Pulse Oximetry 96 95 Oxygen Delivery Method 07/11/24 07:15 07/11/24 07:30 07/11/24 07:31 Temperature 98.9 F Pulse Rate 100 H 100 H Respiratory Rate 18 Blood Pressure 172/71 H 164/70 H Pulse Oximetry 97 96 Oxygen Delivery Method Room Air 07/11/24 07:31 Temperature Pulse Rate 100 H Respiratory Rate Blood Pressure Pulse Oximetry 97 Oxygen Delivery Method <Samm Sears MD - Last Filed: 07/11/24 09:35> Orders Ordered: ED Orders 07/11/24 05:02 XR hip w pel LT 2V Stat 07/11/24 05:07 CT cervical spine wo con Stat CT head/brain wo con Stat 07/11/24 05:15 EKG-12 Lead Stat 07/11/24 05:40 CBC Auto Diff [Complete Blood Count AUTO DIFF] Stat CMP [Comprehensive Metabolic Panel] Stat PT [Prothrombin Time INR] Stat PTT Partial Thromboplastin Ronal Stat Hydromorphone HCl (Hydromorphone 0.5 Mg Inj) 0.5 mg IV Q2H PRN PRN Reason: Pain, Severe (7-10) Last Admin: 07/11/24 09:30 Dose: 0.5 mg Documented By: CATHIE Naloxone HCl (Naloxone 0.4 Mg/Ml Vial) 0.2 mg IV Q2MIN PRN PRN Reason: Opiate Reversal Ondansetron HCl (Ondansetron 4 Mg/2 Ml Inj) 4 mg IV Q8HR PRN PRN Reason: Nausea And Vomiting Oxycodone HCl (Oxycodone Ir 5 Mg Tablet) 5 mg PO Q3H PRN PRN Reason: Pain, Moderate (4-6) Discontinued Medications Morphine Sulfate (Morphine 4 Mg/Ml Inj) 4 mg IV NOW ONE Stop: 07/11/24 05:07 Last Admin: 07/11/24 05:11 Dose: 4 mg Documented By: PASCALE Ondansetron HCl (Ondansetron 4 Mg/2 Ml Inj) 4 mg IV NOW ONE Stop: 07/11/24 05:07 Last Admin: 07/11/24 07:27 Dose: Not Given Documented By: CATHIE Vital Signs Vital signs: Vital Signs - 8 hr 07/11/24 04:59 07/11/24 04:59 07/11/24 05:00 Temperature Pulse Rate 92 H 92 H Respiratory Rate Blood Pressure 212/98 H Pulse Oximetry 99 99 Oxygen Delivery Method 07/11/24 05:03 07/11/24 05:30 07/11/24 06:00 Temperature 97.5 F L Pulse Rate 93 H 93 H 95 H Respiratory Rate 16 Blood Pressure 212/98 H Pulse Oximetry 99 98 97 Oxygen Delivery Method Room Air 07/11/24 06:15 07/11/24 06:15 07/11/24 06:30 Temperature Pulse Rate 95 H Respiratory Rate Blood Pressure 178/76 H 189/79 H Pulse Oximetry 98 Oxygen Delivery Method 07/11/24 06:30 07/11/24 07:00 07/11/24 07:11 Temperature Pulse Rate 98 H 101 H Respiratory Rate 18 Blood Pressure 172/71 H Pulse Oximetry 96 95 Oxygen Delivery Method 07/11/24 07:15 07/11/24 07:30 07/11/24 07:31 Temperature 98.9 F Pulse Rate 100 H 100 H Respiratory Rate 18 Blood Pressure 172/71 H 164/70 H Pulse Oximetry 97 96 Oxygen Delivery Method Room Air 07/11/24 07:31 Temperature Pulse Rate 100 H Respiratory Rate Blood Pressure Pulse Oximetry 97 Oxygen Delivery Method MDM - Fall <Brian Packer, - Last Filed: 07/11/24 06:23> Differential Diagnosis Differential diagnosis: Likely other (Intracranial hemorrhage, cervical neck fracture, hip fracture, femur fracture) Lab Data 07/11/24 05:40 07/11/24 05:40 Labs: Lab Results 07/11/24 Range/Units 05:40 WBC 13.0 H (4.5-11.0) X10^3/uL RBC 4.68 (4.0-5.2) X10^6/uL Hgb 11.4 L (12.0-16.0) g/dL Hct 36.2 (36-46) % MCV 77.3 L (80-100) fL MCH 24.3 L (26-34) PG MCHC 31.5 (30-36) % RDW 16.4 H (11.6-14.8) % Plt Count 373 (150-400) X10^3/uL Neut % (Auto) 76.5 H (50-75) % Lymph % (Auto) 15.3 L (25-40) % [place] % (Auto) 5.0 (3-14) % Eos % (Auto) 2.4 (2-4) % Baso % (Auto) 0.8 (0-2) % Neut # (Auto) 9900 H (2771-3492) /uL Lymph # (Auto) 2000 (7757-8633) /uL [place] # (Auto) 700 (0-900) /uL Eos # (Auto) 300 (0-450) /uL Baso # (Auto) 100 (0-100) /uL PT 24.8 H (9.4-12.5) SECONDS INR 2.2 H (0.9-1.3) APTT 53 H (25.1-36.5) SECONDS Sodium 137 (137-145) mmol/L Potassium 3.9 (3.4-5.1) mmol/L Chloride 103 (98-107) mmol/L Carbon Dioxide 27 (22-32) mmol/L BUN 21 H (7-17) mg/dL Creatinine 0.69 (0.52-1.04) mg/dL Estimated GFR > 60 (>60) mL/min BUN/Creatinine Ratio 30.4 H (6-22) Glucose 158 H (70-99) mg/dL Calcium 8.7 (8.4-10.2) mg/dL Total Bilirubin 0.4 (0.2-1.3) mg/dL AST 21 (14-36) IU/L ALT 14 (<35) IU/L Alkaline Phosphatase 89 (38-126) U/L Total Protein 6.9 (6.3-8.2) g/dL Albumin 3.9 (3.5-5.0) g/dL Globulin 3.0 (1.7-4.1) g/dL Albumin/Globulin Ratio 1.3 (1.0-2.8) Imaging Data Extremity x-ray #1: My Impression: My interpretation patient's hip x-ray showing left femoral neck fracture ECG Data Interpretation: EKG interpreted ED physician sinus 94 beats per minute, QTC 495 normal axis incomplete right bundle branch block noted, nonspecific ST changes no STEMI MDM Narrative Medical decision making narrative: 83-year-old female with a history of hypothyroidism, diabetes, AFib on warfarin, presenting from home via EMS for evaluation of left hip pain after mechanical trip and fall. Patient is from facility. She states that she got up to go use the restroom normally requires a walker however she states that she did not use it this time. She is unsure of head strike but denies LOC. did take her dose of warfarin like normal last night. Did not take her morning dose today. At time of evaluation patient is complaining of left hip pain, she is holding it in slight flexion for comfort however decreased active passive range of motion of the left hip secondary to pain. Neurovascularly intact lower extremities there is no other tenderness to palpation of any bony prominences. Lab work showing slight leukocytosis of 13 point all most likely secondary to traumatic injury. Hemoglobin stable at 11.4. INR 2.2 Patient is signed out to Dr. Brennick, patient most likely admitted here for left femoral neck fracture, final disposition pending CT scan of the head and neck as well as discussion with Orthopedic surgery. <Samm Sears MD - Last Filed: 07/11/24 09:35> Lab Data Labs: Lab Results 07/11/24 Range/Units 05:40 WBC 13.0 H (4.5-11.0) X10^3/uL RBC 4.68 (4.0-5.2) X10^6/uL Hgb 11.4 L (12.0-16.0) g/dL Hct 36.2 (36-46) % MCV 77.3 L (80-100) fL MCH 24.3 L (26-34) PG MCHC 31.5 (30-36) % RDW 16.4 H (11.6-14.8) % Plt Count 373 (150-400) X10^3/uL Neut % (Auto) 76.5 H (50-75) % Lymph % (Auto) 15.3 L (25-40) % [place] % (Auto) 5.0 (3-14) % Eos % (Auto) 2.4 (2-4) % Baso % (Auto) 0.8 (0-2) % Neut # (Auto) 9900 H (3314-9899) /uL Lymph # (Auto) 2000 (7878-5509) /uL [place] # (Auto) 700 (0-900) /uL Eos # (Auto) 300 (0-450) /uL Baso # (Auto) 100 (0-100) /uL PT 24.8 H (9.4-12.5) SECONDS INR 2.2 H (0.9-1.3) APTT 53 H (25.1-36.5) SECONDS Sodium 137 (137-145) mmol/L Potassium 3.9 (3.4-5.1) mmol/L Chloride 103 (98-107) mmol/L Carbon Dioxide 27 (22-32) mmol/L BUN 21 H (7-17) mg/dL Creatinine 0.69 (0.52-1.04) mg/dL Estimated GFR > 60 (>60) mL/min BUN/Creatinine Ratio 30.4 H (6-22) Glucose 158 H (70-99) mg/dL Calcium 8.7 (8.4-10.2) mg/dL Total Bilirubin 0.4 (0.2-1.3) mg/dL AST 21 (14-36) IU/L ALT 14 (<35) IU/L Alkaline Phosphatase 89 (38-126) U/L Total Protein 6.9 (6.3-8.2) g/dL Albumin 3.9 (3.5-5.0) g/dL Globulin 3.0 (1.7-4.1) g/dL Albumin/Globulin Ratio 1.3 (1.0-2.8) Imaging Data CT scan - head: Radiologist's Impression: [address] [address] [address] Scan Report Signed Patient: Tanya Mcmahon MR#: [id number] : 1940 Acct:[id number] Age/Sex: 83 / F Date of Service: 07/11/24 Loc: 90B-1 Accession Number: [id number] Procedure: CT head/brain wo con Ordering Provider: Brian Packer D.O. PROCEDURE: CT HEAD/BRAIN WO CON INDICATIONS: Trauma TECHNIQUE: Noncontrast 4.5 mm thick angled axial sections acquired from the foramen magnum to the vertex, with coronal and sagittal reformats. For radiation dose reduction, the following was used: automated exposure control, adjustment of mA and/or kV according to patient size. COMPARISON: [facility], CT, CT HEAD/BRAIN WO CON, 02/29/2024, 7:01. FINDINGS: Image quality: Diagnostic. CSF spaces: Basal cisterns are patent. No extra-axial fluid collections. The ventricles are symmetric in size and shape. Brain: No intracranial bleeds or mass effect. There is cerebral volume loss, with resultant ventricular and sulcal prominence. There are periventricular and deep white matter chronic small vessel ischemic changes. There is intracranial internal carotid artery atherosclerosis. Skull and face: Calvarium and visualized facial bones appear intact, without suspicious lesions. Sinuses: Visualized sinuses and mastoids are clear. IMPRESSION: 1. No acute intracranial process. 2. Moderate atrophy and chronic microvascular ischemic changes. The above findings are concordant with preliminary report. Dictated by: Jennifer Glesaon M.D. on 07/11/2024 at 8:19 Approved by: Jennifer Gleason M.D. on 07/11/2024 at 8:20 CT - cervical spine: Radiologist's Impression: [address] [address] [address] Scan Report Signed Patient: Tanya Mcmahon MR#: [id number] : 1940 Acct:[id number] Age/Sex: 83 / F Date of Service: 07/11/24 Loc: 90-1 Accession Number: [id number] Procedure: CT cervical spine wo con Ordering Provider: Brian Packer D.O. PROCEDURE: CT CERVICAL SPINE WO CON INDICATIONS: trauma TECHNIQUE: Noncontrast 3 mm thick sections acquired from the skull base to the T4 level. Sagittal and coronal reformats were then constructed. For radiation dose reduction, the following was used: automated exposure control, adjustment of mA and/or kV according to patient size. COMPARISON: [facility], CT, CT CERVICAL SPINE WO CON, 02/29/2024, 7:01. FINDINGS: Image quality: Excellent. Bones: No fractures or dislocations. Visualized superior ribs are intact. Multilevel degenerative changes. Soft tissues: Prevertebral soft tissues are normal in thickness. No paravertebral hematomas. No apical pneumothoraces. IMPRESSION: No displaced fracture or traumatic subluxation. The above findings are concordant with preliminary report. Dictated by: Jennifer Gleason M.D. on 07/11/2024 at 8:20 Approved by: Jennifer Gleason M.D. on 07/11/2024 at 8:21 Extremity x-ray #1: Radiologist's Impression: Displaced intertroch fracture left side MDM Narrative Medical decision making narrative: 83-year-old female with a history of hypothyroidism, diabetes, AFib on warfarin, presenting from home via EMS for evaluation of left hip pain after mechanical trip and fall. Patient is from facility. She states that she got up to go use the restroom normally requires a walker however she states that she did not use it this time. She is unsure of head strike but denies LOC. did take her dose of warfarin like normal last night. Did not take her morning dose today. At time of evaluation patient is complaining of left hip pain, she is holding it in slight flexion for comfort however decreased active passive range of motion of the left hip secondary to pain. Neurovascularly intact lower extremities there is no other tenderness to palpation of any bony prominences. Lab work showing slight leukocytosis of 13 point all most likely secondary to traumatic injury. Hemoglobin stable at 11.4. INR 2.2 Patient is signed out to Dr. Sears, patient most likely admitted here for left femoral neck fracture, final disposition pending CT scan of the head and neck as well as discussion with Orthopedic surgery. July 11, [address] Sears: Sign out from Dr. Packer, patient here for fall, on warfarin, has left hip fracture. Awaiting callback from orthopedics and admission to hospitalist. 7:10 a.m.. I spoke with patient, pain is controlled. Patient understands will need admission for hip fracture and surgery. 7:[address] Sears: I spoke with Orthopedics, Dr. Banks, admit to hospitalist. No surgery today., likely surgery tomorrow 7:[address] Sears: Spoke with hospitalist, Dr. Peralta, who will admit patient 8:[address] Sears: Son has been at bedside. Both are aware of hip fracture and needs admission and likely surgery tomorrow, not today. Discharge Plan Departure Patient Disposition: Admitted As Inpatient Clinical Impression: Closed fracture of neck of left femur Qualifiers: Encounter type: initial encounter Qualified Code(s): S72.002A - Fracture of unspecified part of neck of left femur, initial encounter for closed fracture Admit Date/Time: 07/11/24 07:56 Admit Provider: Jose Rafael Peralta
[2024-07-11 05:47] LABS: Add Manual Diff / Slide Review NO; Basophils Absolute Auto 100 /uL (0-100); Basophils Percent Auto 0.8 % (0-2); Eosinophils Absolute Auto 300 /uL (0-450); Eosinophils Percent Auto 2.4 % (2-4); Hematocrit 36.2 % (36-46); Hemoglobin 11.4 g/dL (12.0-16.0); Lymphocytes Absolute Auto 2000 /uL (1100-4500); Lymphocytes Percent Auto 15.3 % (25-40); Mean Corpuscular HGB Conc 31.5 % (30-36); Mean Corpuscular Hemoglobin 24.3 PG (26-34); Mean Corpuscular Volume 77.3 fL (80-100); Monocytes Absolute Auto 700 /uL (0-900); Neutrophils Absolute Auto 9900 /uL (1500-7000); Neutrophils Percent Auto 76.5 % (50-75); Platelet Count 373 X10^3/uL (150-400); Red Blood Cell Count 4.68 X10^6/uL (4.0-5.2); Red Cell Distribution Width 16.4 % (11.6-14.8)
--- NOTE | 2024-07-11 05:50 | EKG_ITS ---
[address] [address] Test Date: 2024-07-11 Pat Name: Tanya Mcmahon Department: [facility] Room: Gender: Female [employer] Adviser: ZAC SELBY : 1940 Requested By: Order Number: [id number] Reading MD: Jose Rafael Peralta Measurements Intervals [place] Rate: 94 P: 83 [place]: 204 QRS: 247 QRSD: 106 T: 82 QT: 396 QTc: 495 Interpretive Statements Normal sinus rhythm Right superior axis deviation Incomplete right bundle branch block Possible Right ventricular hypertrophy Prolonged QT Electronically Signed On 07-11-2024 7:46:51 PDT by Jose Rafael Peralta
--- NOTE | 2024-07-11 05:51 | EKG_ITS ---
[address] [address] Test Date: 2024-07-11 Pat Name: Tanya Mcmahon Department: [facility] Room: 205 Gender: Female State Attorney: ZAC SELBY : 1940 Requested By: Order Number: [id number] Reading MD: Brian Escobedo Measurements Intervals [place] Rate: 94 P: 99 ME: 198 QRS: -88 QRSD: 104 T: 75 QT: 396 QTc: 495 Interpretive Statements Normal sinus rhythm Left axis deviation Pulmonary disease pattern Incomplete right bundle branch block Prolonged QT Electronically Signed On 07-14-2024 16:22:41 PDT by Brian Escobedo
[2024-07-11 05:53] LABS: INR 2.2 (0.9-1.3); Prothrombin Time 24.8 SECONDS (9.4-12.5)
[2024-07-11 05:56] LABS: PTT Partial Thromboplastin Tim 53 SECONDS (25.1-36.5)
[2024-07-11 05:58] LABS: Alanine Aminotransferase 14 IU/L (<35); Albumin 3.9 g/dL (3.5-5.0); Albumin Globulin Ratio 1.3 (1.0-2.8); Alkaline Phosphatase 89 U/L (38-126); Aspartate Aminotransferase 21 IU/L (14-36); BUN Creatinine Ratio 30.4 (6-22); Bilirubin Total 0.4 mg/dL (0.2-1.3); Blood Urea Nitrogen 21 mg/dL (7-17); Calcium 8.7 mg/dL (8.4-10.2); Carbon Dioxide 27 mmol/L (22-32); Chloride 103 mmol/L (98-107); Estimated Glomerular Filt Rate > 60 mL/min (>60); Glucose 158 mg/dL (70-99); HEMOLYSIS < 15 (0-50); Potassium 3.9 mmol/L (3.4-5.1); Sodium 137 mmol/L (137-145); Total Protein 6.9 g/dL (6.3-8.2)
--- NOTE | 2024-07-11 07:27 | PC.NURSE ---
Pt reports no pain when she is laying still. [place]wick in place; pt reports appropriate placement. GCS 15. Respirations regular and unlabored. Pt identification verified. Bedside report performed by Chhaya ARANA and Kemi ARANA
--- NOTE | 2024-07-11 08:08 | PM.HP.1 ---
History of Present Illness History of Present Illness Date Patient Seen: 07/11/24 Time Patient Seen: 10:33 Chief complaint: GLF L hip Narrative: The patient is an 83-year-old female who is a resident of [facility]. She had a fall and subsequent hip fracture. She presented to the ED where imaging confirmed a hip fracture. She was significant pain with any movement. She denies any other injuries. She was on chronic warfarin. The emergency department did talk to Orthopedics, they requested holding warfarin and will likely repair of the hip on July 12. She was an additional history of hypothyroidism, and diabetes. She denies any chest pain, she notes an abnormal ECG was obtained recently by her primary care doctor, Dr. Thurman. He had ordered an echocardiogram to follow up on this. She denies any known history of heart problems and denies dyspnea, or chest pain. [facility] Medical History Chronic atrial fibrillation Social History Smoking Status: Never smoker Meds Home Medications and Allergies Home Medications Medication Instructions Recorded Confirmed Type acetaminophen 500 mg tablet 1,000 mg PO QID PRN Pain, Moderate 11/23/23 07/11/24 History cholecalciferol (vitamin D3) 50 50 mcg PO DAILY 11/23/23 07/11/24 History mcg (2,000 unit) capsule empagliflozin 10 mg tablet 10 mg PO DAILY 11/23/23 07/11/24 History (Jardiance) levothyroxine 112 mcg tablet 112 mcg PO DAILY 11/23/23 07/11/24 History metformin 1,000 mg tablet 1,000 mg PO BID 11/23/23 07/11/24 History omeprazole 20 mg tablet,delayed 20 mg PO BID 11/23/23 07/11/24 History release venlafaxine 75 mg tablet 75 mg PO BID 11/23/23 07/11/24 History levalbuterol tartrate 45 2 puff inhalation Q4-6H PRN 11/24/23 07/11/24 History mcg/actuation aerosol inhaler Shortness Of Breath Or Wheezing (Xopenex HFA) warfarin 2.5 mg tablet 2.5 mg PO DAILY 11/24/23 07/11/24 History cyanocobalamin (vitamin B-12) 1,000 mcg PO DAILY 07/11/24 07/11/24 History 1,000 mcg tablet memantine 5 mg tablet 5 mg PO BID 07/11/24 07/11/24 History propafenone 425 mg 425 mg PO DAILY 07/11/24 07/11/24 History capsule,extended release 12 hr Allergies Allergy/AdvReac Type Severity Reaction Status Date / Time adhesive tape Allergy Verified 11/22/23 13:16 apixaban [From Eliquis] Allergy Verified 11/22/23 13:16 Cholinesterase Allergy Verified 11/22/23 13:16 Inhibitor(Carbamate) dulaglutide Allergy Verified 11/22/23 13:16 NSAIDS (Non-Steroidal Allergy Verified 11/22/23 13:16 Anti-Inflamma Sulfa (Sulfonamide Allergy Verified 11/22/23 13:16 Antibiotics) Review of Systems Review of Systems Narrative: All else reviewed and otherwise unremarkable except as noted in the history and physical. Exam Vital Signs (past 8 hours): - 07/11/24 04:59 07/11/24 04:59 07/11/24 05:00 Temperature Pulse Rate 92 H 92 H Respiratory Rate Blood Pressure 212/98 H Pulse Oximetry 99 99 Oxygen Delivery Method 07/11/24 05:03 07/11/24 05:30 07/11/24 06:00 Temperature 97.5 F L Pulse Rate 93 H 93 H 95 H Respiratory Rate 16 Blood Pressure 212/98 H Pulse Oximetry 99 98 97 Oxygen Delivery Method Room Air 07/11/24 06:15 07/11/24 06:15 07/11/24 06:30 Temperature Pulse Rate 95 H Respiratory Rate Blood Pressure 178/76 H 189/79 H Pulse Oximetry 98 Oxygen Delivery Method 07/11/24 06:30 07/11/24 07:15 Temperature 98.9 F Pulse Rate 98 H 100 H Respiratory Rate 18 18 Blood Pressure 172/71 H Pulse Oximetry 96 97 Oxygen Delivery Method Room Air Oxygen Delivery Method Room Air Narrative Exam Narrative: NAD, alert and oriented, fluent speech, calm. Normocephalic skull, EOMI, anicteric sclera, symmetric pupils. Oropharynx unremarkable, no droop. Neck supple, midline trachea, no adenopathy. Lungs clear, normal rate and effort. Heart regular, no murmur gallop or rub. Abdomen is soft, non distended and non tender. Extremities are free of edema. Skin is free of rash or lesions. Joints are not swollen or deformed. Judgment appears to be normal. She was keeping left hip slightly flexed and internally rotated. Objective ECG Impression: Normal sinus rhythm Right superior axis deviation Incomplete right bundle branch block Possible Right ventricular hypertrophy Prolonged QT Imaging Multiple studies:: Radiologist's impression: Head CT: 1. No acute intracranial process. 2. Moderate atrophy and chronic microvascular ischemic changes. Cervical spine CT: No displaced fracture or traumatic subluxation. The above findings are concordant with preliminary report. Hip x-ray: She has a displaced left intertrochanteric hip fracture. Labs 07/11/24 05:40 07/11/24 05:40 Labs: Laboratory Results - last 24 hr 07/11/24 05:40 WBC 13.0 H RBC 4.68 Hgb 11.4 L Hct 36.2 MCV 77.3 L MCH 24.3 L MCHC 31.5 RDW 16.4 H Plt Count 373 Neut % (Auto) 76.5 H Lymph % (Auto) 15.3 L [place] % (Auto) 5.0 Eos % (Auto) 2.4 Baso % (Auto) 0.8 Neut # (Auto) 9900 H Lymph # (Auto) 2000 [place] # (Auto) 700 Eos # (Auto) 300 Baso # (Auto) 100 PT 24.8 H INR 2.2 H APTT 53 H Sodium 137 Potassium 3.9 Chloride 103 Carbon Dioxide 27 BUN 21 H Creatinine 0.69 Estimated GFR > 60 BUN/Creatinine Ratio 30.4 H Glucose 158 H Calcium 8.7 Total Bilirubin 0.4 AST 21 ALT 14 Alkaline Phosphatase 89 Total Protein 6.9 Albumin 3.9 Globulin 3.0 Albumin/Globulin Ratio 1.3 Assessment & Plan Assessment & Plan narrative: 1. Ground level fall, resolved. 2. Left intertrochanteric hip fracture, active. 3. DM 2, active. 4. Hypothyroidism, active. 5. LVH on ECG, stable. Plan: -hold warfarin -NPO at midnight -orthopedics consult for ORIF on July 12. -INR on the morning of July 12. -sliding scale insulin Full resuscitation Anticipate at least 2 midnights in the hospital, supports inpatient status. Time-Based Coding :: 35 min spent with patient and on the chart (including review of chart, obtaining history, exam, reviewing outside data, placing orders, documenting exam and treatment plan, and counseling patient) on 07/11. Quality MIPS - Admit The patient?s Advance Care plan is not present because I confirmed today that the patient does not wish or was not able to name a surrogate decision maker or provide an Advance Care Plan.: Yes MIPS - Meds 'Current medications' to include all prescriptions, [id number] products, herbals, cannabis/cannabidiol products, and vitamin/mineral/dietary (nutritional) supplements. I have utilized all available resources to obtain, update, or review the patient?s current medications. [If Yes, STOP here]: Yes
[2024-07-11] MEDS: HYDROMORPHONE 0.5 MG INJ IV (09:30)
--- NOTE | 2024-07-11 10:05 | PM.PN.IH.1 ---
Subjective Subjective Interval history: I was called by the ED physician. Imaging and labs reviewed. Patient has a left intertrochanteric femur fracture for which I recommend intramedullary nailing. She has previously had the same surgery on the right hip. INR is 2.2. This will need to be reversed prior to surgery. Once she has an INR less than 1.5 I will proceed with IM nailing. Exam Vital Signs (past 8 hours): - 07/11/24 04:59 07/11/24 04:59 07/11/24 05:00 Temperature Pulse Rate 92 H 92 H Respiratory Rate Blood Pressure 212/98 H Pulse Oximetry 99 99 Oxygen Delivery Method 07/11/24 05:03 07/11/24 05:30 07/11/24 06:00 Temperature 97.5 F L Pulse Rate 93 H 93 H 95 H Respiratory Rate 16 Blood Pressure 212/98 H Pulse Oximetry 99 98 97 Oxygen Delivery Method Room Air 07/11/24 06:15 07/11/24 06:15 07/11/24 06:30 Temperature Pulse Rate 95 H Respiratory Rate Blood Pressure 178/76 H 189/79 H Pulse Oximetry 98 Oxygen Delivery Method 07/11/24 06:30 07/11/24 07:00 07/11/24 07:11 Temperature Pulse Rate 98 H 101 H Respiratory Rate 18 Blood Pressure 172/71 H Pulse Oximetry 96 95 Oxygen Delivery Method 07/11/24 07:15 07/11/24 07:30 07/11/24 07:31 Temperature 98.9 F Pulse Rate 100 H 100 H Respiratory Rate 18 Blood Pressure 172/71 H 164/70 H Pulse Oximetry 97 96 Oxygen Delivery Method Room Air 07/11/24 07:31 07/11/24 08:00 07/11/24 08:00 Temperature Pulse Rate 100 H 98 H Respiratory Rate Blood Pressure 190/84 H Pulse Oximetry 97 97 Oxygen Delivery Method 07/11/24 08:30 07/11/24 08:30 07/11/24 09:00 Temperature Pulse Rate 100 H 107 H Respiratory Rate Blood Pressure 147/63 H Pulse Oximetry 98 95 Oxygen Delivery Method 07/11/24 09:00 07/11/24 09:30 Temperature Pulse Rate 105 H Respiratory Rate Blood Pressure 149/63 H Pulse Oximetry 98 Oxygen Delivery Method Oxygen Delivery Method Room Air Objective Labs 07/11/24 05:40 07/11/24 05:40 Labs: Laboratory Results - last 24 hr 07/11/24 05:40 WBC 13.0 H RBC 4.68 Hgb 11.4 L Hct 36.2 MCV 77.3 L MCH 24.3 L MCHC 31.5 RDW 16.4 H Plt Count 373 Neut % (Auto) 76.5 H Lymph % (Auto) 15.3 L [place] % (Auto) 5.0 Eos % (Auto) 2.4 Baso % (Auto) 0.8 Neut # (Auto) 9900 H Lymph # (Auto) 2000 [place] # (Auto) 700 Eos # (Auto) 300 Baso # (Auto) 100 PT 24.8 H INR 2.2 H APTT 53 H Sodium 137 Potassium 3.9 Chloride 103 Carbon Dioxide 27 BUN 21 H Creatinine 0.69 Estimated GFR > 60 BUN/Creatinine Ratio 30.4 H Glucose 158 H Calcium 8.7 Total Bilirubin 0.4 AST 21 ALT 14 Alkaline Phosphatase 89 Total Protein 6.9 Albumin 3.9 Globulin 3.0 Albumin/Globulin Ratio 1.3 PFSH Medical History Chronic atrial fibrillation Social History Smoking Status: Never smoker Assessment & Plan Time-Based Coding :: [TOTAL MINUTES] spent with patient and on the chart (including review of chart, obtaining history, exam, reviewing outside data, placing orders, documenting exam and treatment plan, and counseling patient) on [DATE]. PROFEE [employer] Document charge(s): No
[2024-07-11] MEDS: OXYCODONE IR 5 MG TABLET PO ×3 (10:09→20:59)
[2024-07-11] MEDS: ACETAMINOPHEN 325 MG TABLET 650 MG PO ×2 (10:53→16:42)
[2024-07-11] MEDS: CYCLOBENZAPRINE 10 MG TABLET PO (12:23)
[2024-07-11] MEDS: PHYTONADIONE (VIT K1) 5 MG in SODIUM CHLORIDE 0.9% 100 ML 201 MG IV (12:23)
[2024-07-11 17:22] LABS: INR 1.7 (0.9-1.3); Prothrombin Time 18.6 SECONDS (9.4-12.5)
[2024-07-11] MEDS: INSULIN LISPRO 100 UNIT/ML 3ML VIAL SUBCUT (20:46)
[2024-07-11] MEDS: SODIUM CHLORIDE 0.9% FLUSH 10 ML IV (20:47)
--- NOTE | 2024-07-11 22:23 | PC.NURSE ---
Patient is alert and oriented except to day of month. Breath sounds CTA with RA sat of 97%. HRR but tachycardic in low 100's. BT present and abdomen is soft. Declined indwelling catheter placement related to hx of UTI's so external catheter is in place. Is being repositioned as she will allow related to pain from fx hip. Bilateral calf SCD's are in place. CBG was 219 and received 1 unit of SS insulin coverage. Did complain of 5/10 left hip pain so was medicated with oxycodone and ice applied; currently asleep so not awakened for 2215 scheduled Tylenol. Fall risk score is high and bed alarm is activated. Informed she will be NPO after 0000 for anticipated surgery in the morning.
[2024-07-12] MEDS: OXYCODONE IR 5 MG TABLET PO ×4 (01:33→21:36)
[2024-07-12 06:50] LABS: Add Manual Diff / Slide Review NO; Basophils Absolute Auto 100 /uL (0-100); Basophils Percent Auto 0.4 % (0-2); Eosinophils Absolute Auto 200 /uL (0-450); Eosinophils Percent Auto 1.5 % (2-4); Hematocrit 36.2 % (36-46); Hemoglobin 11.5 g/dL (12.0-16.0); Lymphocytes Absolute Auto 1700 /uL (1100-4500); Lymphocytes Percent Auto 11.9 % (25-40); Mean Corpuscular HGB Conc 31.7 % (30-36); Mean Corpuscular Hemoglobin 24.5 PG (26-34); Mean Corpuscular Volume 77.1 fL (80-100); Monocytes Absolute Auto 1000 /uL (0-900); Neutrophils Absolute Auto 11500 /uL (1500-7000); Neutrophils Percent Auto 79.2 % (50-75); Platelet Count 376 X10^3/uL (150-400); Red Blood Cell Count 4.69 X10^6/uL (4.0-5.2); Red Cell Distribution Width 16.4 % (11.6-14.8); White Blood Cell Count 14.5 X10^3/uL (4.5-11.0)
[2024-07-12 06:55] LABS: INR 1.2 (0.9-1.3); Prothrombin Time 13.8 SECONDS (9.4-12.5)
[2024-07-12 06:58] LABS: Blood Urea Nitrogen 17 mg/dL (7-17); Calcium 8.7 mg/dL (8.4-10.2); Carbon Dioxide 26 mmol/L (22-32); Chloride 104 mmol/L (98-107); Estimated Glomerular Filt Rate > 60 mL/min (>60); Glucose 209 mg/dL (70-99); HEMOLYSIS < 15 (0-50); Potassium 4.1 mmol/L (3.4-5.1); Sodium 139 mmol/L (137-145)
[2024-07-12 08:00] VITALS: BP 141/70; PULSE 116; RESP 16; TEMP 36.3; O2SAT 95
[2024-07-12] MEDS: CYCLOBENZAPRINE 10 MG TABLET PO ×2 (08:18→19:45)
[2024-07-12] MEDS: SODIUM CHLORIDE 0.9% 1,000 ML 70 ML IV ×2 (08:19→21:36)
[2024-07-12] MEDS: SODIUM CHLORIDE 0.9% FLUSH 10 ML IV (08:26)
[2024-07-12] MEDS: ACETAMINOPHEN 325 MG TABLET 650 MG PO ×2 (10:36→21:36)
--- NOTE | 2024-07-12 13:39 | CM.DANOTE ---
Initial DCP Assessment Visit Reviewed EMR and team rounds for pt's medical status and updates. Met with pt briefly in the room to introduce self and role, pt was found to be alert/oriented, resting quietly in bed, in no acute pain or distress. Pt lives modified independently at [facility]. She has a local son, Stepan, who has been supportive and at bedside. Monitoring for final PT/OT final eval and recs, pt will likely need SNF rehab at time of d/c. Payor: [facility] PCP: Dr. Flor Pt is a 83 year-old F who presented to the ED last evening via EMS from [facility] after she tripped and fell on her way to the bathroom, resulting in a GLF with resulting L-hip pain. CT imaging in the ED confirmed that she had a fractured L-femur. Ortho was consulted, and the plan was made for admission and planned surgery for today, 07/12/24. Pending PT/OT evals and recs for final disposition and needs. Discharge Planning/Care Management CM Discharge Assessment Start: 07/11/24 08:57 Freq: Status: Active Protocol: Document 07/12/24 13:35 DPL (Rec: 07/12/24 13:38 DPL [id number]) Discharge Planning Assessment Assigned Neonatal Surgeon MAN Lauren Advance Directives? No History Provided By Patient,Medical Record Has Patient been admitted in last 30 No days? Prior Living Arrangements Assisted Living Comment [facility] Household Members none Type of transporation used prior to Relies on Others admit Facility Name Admitted From: [facility] Living Willing to Return to Facility? Yes Independent with ADL's No: modified assist with a walker or wheelchair Needs Assistance With Bathing,Grooming,Meal Prep, Managing Medications,Home Chores / Shopping Caregiver for Another No DME Already Rented / Owned Bath Bench,Wheelchair,Elevated Toilet Seat,FWW / Walker Patient/Family Preference OP PT Therapy,OP OT Therapy Barriers to Discharge No Discharge Plan Assisted Living Facility Community Services Physical Therapy,Home Health Aid,Home Health Nurse Transportation Arrangement Facility Referrals Initiated Home Health Additional Comment Pending PT/OT evals and recs, however she likely will need Home Health PT. If patient plan is home with home health No : Has signed face to face form been completed? Medicare Choice List Provided No SNF/HH Preference Pending Review Status In Process Please Provide Date Initial DC 07/12/24 Assessment Was Performed
[2024-07-12 16:43] VITALS: BP 106/67; PULSE 113; RESP 16; TEMP 36.5; O2SAT 97
--- NOTE | 2024-07-12 17:47 | PM.PN.1 ---
Subjective Subjective Interval history: 83 F on coumadin admitted with L femur fracture, INR is reversed this morning. Plan is for operative interventions later today. Patient without pain unless she attempts to move currently. No chest pain, shortness of breath reported. Exam Vital Signs (past 8 hours): - 07/12/24 16:43 Temperature 97.7 F Pulse Rate 113 H Respiratory Rate 16 Blood Pressure 106/67 Pulse Oximetry 97 Oxygen Flow Rate 0 Oxygen Delivery Method Room Air Oxygen Flow Rate 0 Narrative Exam Narrative: NAD, alert and oriented, fluent speech, calm. Normocephalic skull, EOMI, anicteric sclera, symmetric pupils. Oropharynx unremarkable, no droop. Neck supple, midline trachea, no adenopathy. Lungs clear, normal rate and effort. Heart regular, no murmur gallop or rub. Abdomen is soft, non distended and non tender. Extremities are free of edema. Skin is free of rash or lesions. Joints are not swollen or deformed. Judgment appears to be normal. She was keeping left hip slightly flexed and internally rotated. Objective Labs 07/12/24 06:30 07/12/24 06:30 Labs: Laboratory Results - last 24 hr 07/12/24 06:30 WBC 14.5 H RBC 4.69 Hgb 11.5 L Hct 36.2 MCV 77.1 L MCH 24.5 L MCHC 31.7 RDW 16.4 H Plt Count 376 Neut % (Auto) 79.2 H Lymph % (Auto) 11.9 L [place] % (Auto) 7.0 Eos % (Auto) 1.5 L Baso % (Auto) 0.4 Neut # (Auto) 23009 H Lymph # (Auto) 1700 [place] # (Auto) 1000 H Eos # (Auto) 200 Baso # (Auto) 100 PT 13.8 H INR 1.2 Sodium 139 Potassium 4.1 Chloride 104 Carbon Dioxide 26 BUN 17 Creatinine 0.63 Estimated GFR > 60 BUN/Creatinine Ratio 27.0 H Glucose 209 H Calcium 8.7 PFSH Medical History Chronic atrial fibrillation Social History household members: none Smoking Status: Never smoker Assessment & Plan Assessment & Plan narrative: 1. Ground level fall, resolved. 2. Left intertrochanteric femur fracture, active, POA, pathologic secondary to osteoporosis. 3. DM 2, active. 4. Hypothyroidism, active. 5. LVH on ECG, stable. Plan: -hold warfarin, INR <1.5 this AM. -Surgery planned for today. -sliding scale insulin - PT / OT to start tomorrow. code: Full DVT: SCDs pending OR. Resume coumadin post op when safe per orthopedics. Anticipate at least 2 midnights in the hospital, supports inpatient status. Time-Based Coding :: [TOTAL MINUTES] spent with patient and on the chart (including review of chart, obtaining history, exam, reviewing outside data, placing orders, documenting exam and treatment plan, and counseling patient) on [DATE]. Quality VTE Deep Vein Thrombosis/Pulmonary Embolism Present on Admission: No
[2024-07-12 20:52] VITALS: BP 137/58; PULSE 116; RESP 16; TEMP 36.3; O2SAT 98
[2024-07-12] MEDS: INSULIN LISPRO 100 UNIT/ML 3ML VIAL SUBCUT (21:42)
[2024-07-13] VITALS (14 sets, daily range): BP systolic 85–149; BP diastolic 33–75; PULSE 74–114; RESP 13–21; TEMP 36.1–37.2; O2SAT 92–100; BMI 147.2
--- NOTE | 2024-07-13 | DI.RAD.S_ITS ---
PROCEDURE: XR HIP W PEL IF DONE LT 2V INDICATIONS: POST OP IM NAIL LEFT TECHNIQUE: AP pelvis with lateral view(s) of the left hip(s). COMPARISON: [facility], CR, XR HIP W PEL LT 2V, 07/13/2024, 15:25. [facility], CR, XR HIP W PEL LT 2V, 07/11/2024, 5:04. FINDINGS: Bones: Left femur intramedullary poonam with screw fixation. No dislocation. Prior left intertrochanteric fracture. There is anatomic alignment. Lesser trochanter fracture fragments are mildly displaced. Pelvic ring appears intact. No suspicious bony lesions. Prior right femur intramedullary nail with screw fixation. Soft tissues: The visualized bowel gas pattern is normal. No suspicious soft tissue calcifications. IMPRESSION: Left femur intramedullary poonam with screw fixation. Anatomic alignment of the left intertrochanteric fracture. Dictated by: Adrian Rebollar M.D. on 07/13/2024 at 18:40 Approved by: Adrian Rebollar M.D. on 07/13/2024 at 18:43
--- NOTE | 2024-07-13 01:26 | PC.NURSE ---
fashion adviser: Surgery delayed, patient & family updated. Ate dinner, NPO at midnight. VSS, medicated for pain as ordered. Denies SOB, nausea, CP. CMS intact in left lower extremity. Turning as tolerated, patient often declines, educated about pressure injury prevention. SCDs are on. Oriented to call-light, plan of care ongoing.
[2024-07-13] MEDS: OXYCODONE IR 5 MG TABLET PO ×4 (02:01→18:22)
[2024-07-13 04:55] LABS: Add Manual Diff / Slide Review NO; Basophils Absolute Auto 100 /uL (0-100); Basophils Percent Auto 0.5 % (0-2); Eosinophils Absolute Auto 200 /uL (0-450); Eosinophils Percent Auto 2.1 % (2-4); Hematocrit 31.9 % (36-46); Hemoglobin 10.1 g/dL (12.0-16.0); Lymphocytes Absolute Auto 1700 /uL (1100-4500); Lymphocytes Percent Auto 14.9 % (25-40); Mean Corpuscular HGB Conc 31.8 % (30-36); Mean Corpuscular Hemoglobin 24.6 PG (26-34); Mean Corpuscular Volume 77.4 fL (80-100); Monocytes Absolute Auto 800 /uL (0-900); Neutrophils Absolute Auto 8500 /uL (1500-7000); Neutrophils Percent Auto 75.5 % (50-75); Platelet Count 319 X10^3/uL (150-400); Red Blood Cell Count 4.13 X10^6/uL (4.0-5.2); Red Cell Distribution Width 16.3 % (11.6-14.8); White Blood Cell Count 11.3 X10^3/uL (4.5-11.0)
[2024-07-13 05:13] LABS: BUN Creatinine Ratio 31.8 (6-22); Blood Urea Nitrogen 21 mg/dL (7-17); Calcium 8.2 mg/dL (8.4-10.2); Carbon Dioxide 25 mmol/L (22-32); Chloride 106 mmol/L (98-107); Estimated Glomerular Filt Rate > 60 mL/min (>60); Glucose 217 mg/dL (70-99); HEMOLYSIS < 15 (0-50); Potassium 3.8 mmol/L (3.4-5.1); Sodium 138 mmol/L (137-145)
[2024-07-13] MEDS: HYDROMORPHONE 0.5 MG INJ IV (06:26)
[2024-07-13] MEDS: MEMANTINE HCL 5 MG TABLET PO ×2 (08:08→21:02)
[2024-07-13] MEDS: CYCLOBENZAPRINE 10 MG TABLET PO (08:08)
--- NOTE | 2024-07-13 08:11 | P.CONS_ITS ---
History of Present Illness Consult details Chief complaint: GLF L hip Narrative: CHIEF COMPLAINT - Left intertrochanteric fracture HISTORY OF PRESENT ILLNESS Tanya Mcmahon, an 83-year-old female, presented with a left intertrochanteric fracture following a fall. The injury is worsened by any movement and partially alleviated by rest. It has been present since the time of injury and does not radiate. Due to her INR being 2.2 on arrival, surgery was initially delayed to allow her warfarin levels to decrease. An emergency case further delayed her surgery last night. I was fully prepared to do her surgery no matter what time I was allowed to start and was not able to perform the surgery because there were no Xray techs as of 9 pm. She has been NPO overnight. PERTINENT MEDICATIONS - Coumadin (warfarin). Most recent INR 1.2 SOCIAL HISTORY - Resident of [facility]. Lives in the independent living portion of the facility PHYSICAL EXAM - Constitutional: Patient is mentating appropriately and is conversant. She is grimacing in pain throughout my exam. - LLE: Small abrasion on the knee. No open wounds on the hip. Flexes/extends toes and ankle. ASSESSMENT 83-year-old female with a left intertrochanteric fracture PLAN The risks and benefits of surgery were discussed with the patient at length, and understanding their options, they wish to proceed with surgery. All of their questions were answered. The surgery is planned for 3 p.m. today, and the specific procedure involves the insertion of a nail with screws. Discussed risks include medical complications, need for additional surgery, damage to surrounding structures, infection, and potential non-healing of the fracture. The postoperative plan involves weight-bearing as tolerated, with follow-up in the clinic for x-rays and assessment. The patient will be mobilized as soon as possible postoperatively to aid recovery. She will return to a SNF or [facility] given that she was there preoperatively. Meds Home Medications and Allergies Home Medications Medication Instructions Recorded Confirmed Type acetaminophen 500 mg tablet 1,000 mg PO QID PRN Pain, Moderate 11/23/23 07/11/24 History cholecalciferol (vitamin D3) 50 50 mcg PO DAILY 11/23/23 07/11/24 History mcg (2,000 unit) capsule empagliflozin 10 mg tablet 10 mg PO DAILY 11/23/23 07/11/24 History (Jardiance) levothyroxine 112 mcg tablet 112 mcg PO DAILY 11/23/23 07/11/24 History metformin 1,000 mg tablet 1,000 mg PO BID 11/23/23 07/11/24 History omeprazole 20 mg tablet,delayed 20 mg PO BID 11/23/23 07/11/24 History release venlafaxine 75 mg tablet 75 mg PO BID 11/23/23 07/11/24 History levalbuterol tartrate 45 2 puff inhalation Q4-6H PRN 11/24/23 07/11/24 History mcg/actuation aerosol inhaler Shortness Of Breath Or Wheezing (Xopenex HFA) warfarin 2.5 mg tablet 2.5 mg PO DAILY 11/24/23 07/11/24 History cyanocobalamin (vitamin B-12) 1,000 mcg PO DAILY 07/11/24 07/11/24 History 1,000 mcg tablet memantine 5 mg tablet 5 mg PO BID 07/11/24 07/11/24 History propafenone 425 mg 425 mg PO DAILY 07/11/24 07/11/24 History capsule,extended release 12 hr Allergies Allergy/AdvReac Type Severity Reaction Status Date / Time adhesive tape Allergy Verified 11/22/23 13:16 apixaban [From Eliquis] Allergy Verified 11/22/23 13:16 Cholinesterase Allergy Verified 11/22/23 13:16 Inhibitor(Carbamate) dulaglutide Allergy Verified 11/22/23 13:16 NSAIDS (Non-Steroidal Allergy Verified 11/22/23 13:16 Anti-Inflamma Sulfa (Sulfonamide Allergy Verified 11/22/23 13:16 Antibiotics) Exam Vital Signs (past 8 hours): - 07/13/24 02:03 07/13/24 04:17 Temperature 97.2 F L Pulse Rate 114 H 113 H Respiratory Rate 16 16 Blood Pressure 112/56 L 130/57 L Pulse Oximetry 98 96 Oxygen Flow Rate 0 0 Oxygen Delivery Method Room Air Oxygen Flow Rate 0 Objective Labs 07/13/24 04:25 07/13/24 04:25 Labs: Laboratory Results - last 24 hr 07/13/24 04:25 WBC 11.3 H RBC 4.13 Hgb 10.1 L Hct 31.9 L MCV 77.4 L MCH 24.6 L MCHC 31.8 RDW 16.3 H Plt Count 319 Neut % (Auto) 75.5 H Lymph % (Auto) 14.9 L [place] % (Auto) 7.0 Eos % (Auto) 2.1 Baso % (Auto) 0.5 Neut # (Auto) 8500 H Lymph # (Auto) 1700 [place] # (Auto) 800 Eos # (Auto) 200 Baso # (Auto) 100 Sodium 138 Potassium 3.8 Chloride 106 Carbon Dioxide 25 BUN 21 H Creatinine 0.66 Estimated GFR > 60 BUN/Creatinine Ratio 31.8 H Glucose 217 H Calcium 8.2 L [facility] Medical History Chronic atrial fibrillation Social History household members: none Tobacco & Substance Use Smoking Status: Never smoker Assessment & Plan Assessment and plan (1) Intertrochanteric fracture of left femur: Status: Acute Time-Based Coding :: [TOTAL MINUTES] spent with patient and on the chart (including review of chart, obtaining history, exam, reviewing outside data, placing orders, documenting exam and treatment plan, and counseling patient) on [DATE]. PROFEE Charge Codes Inpatient or Observation consultation: [phone]
[2024-07-13] MEDS: ACETAMINOPHEN 325 MG TABLET 650 MG PO ×2 (09:21→23:21)
--- NOTE | 2024-07-13 09:32 | CM.DPNOTE ---
DCP Continued: Reviewed EMR and team rounds for pt?s medical status. It is reported that patient was slotted for surgery on 07/12 but it got postponed due to another imminent surgery. It is now scheduled for 07/13 at approximately 3:30pm. DCP entered room, introduced self and role. Present in the room is pt's son, Will. Patient and son express concerns of pt being NPO for an extended period of time and the push in surgery time. DCP utilized reflective listening to assist in validating their concerns. DCP discussed pt with multidisciplinary team, reported most recent update of pt scheduled surgery to patient and son; they were appreciative. SNF History: Pt reports previous SNF Rehab admission during last hip surgery in [place], could not recall name of facility. DCP provided Medicare Choice List to patient and son for their review, they state a preference for SNF Rehab in [place] if available. Plan: Anticipating to follow PT/OT recommendations after surgery on 07/13, CM Team will continue to follow for coordination of discharge plans. MARKIE Busch
[2024-07-13] MEDS: PROPAFENONE 425 MG 425 EACH PO (10:15)
[2024-07-13] MEDS: SODIUM CHLORIDE 0.9% 1,000 ML 70 ML IV ×2 (11:49→16:53)
--- NOTE | 2024-07-13 14:50 | PM.PREOP ---
Pre-operative Note Interval Note History & Physical reviewed/Exam performed by Physician: Yes Changes to H&P: No
[2024-07-13] MEDS: CEFAZOLIN 2 GM/100 ML PREMIX 100 ML IV (15:10)
[2024-07-13] MEDS: ACETAMINOPHEN IV 1,000 MG/100 ML VIAL 400 MG IV (15:20)
[2024-07-13] MEDS: TRANEXAMIC ACID 1,000 MG in SODIUM CHLORIDE 0.9% 100 ML 200 MG IV ×2 (15:36→17:21)
--- NOTE | 2024-07-13 15:53 | SUR.OPER ---
Supine on padded [place] table with bilateral legs secured in padded positioning boots and suspended in positioning spars, operative leg in traction per surgeon. Head on one pillow. Arm on non-operative side secured on padded armboard <90 degrees abduction. Arm on operative side padded and resting across chest then secured with tape over sheet. Padded perineal post in place per surgeon.
[2024-07-13] MEDS: BUPIVACAINE 0.25% W/ EPI 30 ML VIAL INJ (16:04)
--- NOTE | 2024-07-13 17:22 | PM.PN.1 ---
Subjective Subjective Interval history: 83 F on coumadin admitted with L femur fracture, INR is reversed. Surgery delayed yesterday. Planned for today. Pain is controlled. She denies chest pain, shortness of breath. Exam Vital Signs (past 8 hours): - 07/13/24 14:24 Temperature 97.7 F Pulse Rate 105 H Respiratory Rate 21 Blood Pressure 148/75 H Pulse Oximetry 99 Oxygen Delivery Method Room Air Oxygen Delivery Method Room Air Oxygen Flow Rate 0 Narrative Exam Narrative: NAD, alert and oriented, fluent speech, calm.. Lungs clear, normal rate and effort. Heart regular, no murmur gallop or rub. Abdomen is soft, non distended and non tender. Extremities are free of edema. Objective Labs 07/13/24 04:25 07/13/24 04:25 Labs: Laboratory Results - last 24 hr 07/13/24 04:25 WBC 11.3 H RBC 4.13 Hgb 10.1 L Hct 31.9 L MCV 77.4 L MCH 24.6 L MCHC 31.8 RDW 16.3 H Plt Count 319 Neut % (Auto) 75.5 H Lymph % (Auto) 14.9 L [place] % (Auto) 7.0 Eos % (Auto) 2.1 Baso % (Auto) 0.5 Neut # (Auto) 8500 H Lymph # (Auto) 1700 [place] # (Auto) 800 Eos # (Auto) 200 Baso # (Auto) 100 Sodium 138 Potassium 3.8 Chloride 106 Carbon Dioxide 25 BUN 21 H Creatinine 0.66 Estimated GFR > 60 BUN/Creatinine Ratio 31.8 H Glucose 217 H Calcium 8.2 L PFSH Medical History Chronic atrial fibrillation Social History household members: none Smoking Status: Never smoker alcohol intake: never Assessment & Plan Assessment & Plan narrative: 1. Ground level fall, resolved. 2. Left intertrochanteric femur fracture, active, POA, pathologic secondary to osteoporosis. 3. DM 2, active. 4. Hypothyroidism, active. 5. LVH on ECG, stable. Plan: -hold warfarin, INR <1.5 yesterday -Surgery planned for today. -sliding scale insulin - PT / OT to start tomorrow. code: Full DVT: SCDs pending OR. Resume coumadin post op when safe per orthopedics. Anticipate at least 2 midnights in the hospital, supports inpatient status. Time-Based Coding :: [TOTAL MINUTES] spent with patient and on the chart (including review of chart, obtaining history, exam, reviewing outside data, placing orders, documenting exam and treatment plan, and counseling patient) on [DATE]. Quality VTE Deep Vein Thrombosis/Pulmonary Embolism Present on Admission: No
[2024-07-13 17:23] LABS: Hemoglobin A1C% w Est Avg Glu 7.4 % (4.0-6.0)
[2024-07-13] MEDS: LACTATED RINGERS 1,000 ML 42 ML IV (18:17)
[2024-07-13] MEDS: ONDANSETRON 4 MG/2 ML INJ IV (18:36)
--- NOTE | 2024-07-13 18:36 | P.OP_ITS ---
Operative Date/Time/Diagnoses Date of procedure: 07/13/24 Time of procedure: 17:00 Pre-op diagnosis: Intertrochanteric left femur fracture Post-op diagnosis: same Procedure & Clinicians Procedure: Intramedullary nailing of intertrochanteric left femur fracture with subtrochanteric extension Same procedure as scheduled: Yes Surgeon: Jack Cornell Animal [employer] Licensing Worker: Bakari Zhu Anesthesia Type: General and Local Operative Notes Findings: Severe fracture comminution Prosthetic devices, grafts, tissues, transplants, or devices: [employer] InterTAN 10X43 with 95/90 screws proximally and 45/50 screws d istally Estimated Blood Loss (mL): 350 Blood products transfused: none Procedure in detail: This 83-year-old female patient sustained a ground-level fall resulting in a displaced intertrochanteric left femur fracture with subtrochanteric extension. She was brought to the emergency department where the injury was diagnosed and admitted to the medical service. She has a history significant for atrial fibrillation and is maintained on warfarin. She had an INR of 2.2 on arrival, and therefore, we delayed surgery until we could get her INR down to 1.5 before proceeding with surgery. This took approximately 24 hours. On the second day of her hospital admission, I was prepared to move forward with surgery and had made myself available for the operating room. There was a separate add-on case which went significantly over its scheduled time, resulting in all of the cases for that day which were add-on cases not being completed. I was willing to perform the surgery well into the late hours of the evening; however, the hospital did not have an X-ray tech song lyricist who could help with fluoroscopy at that time. I therefore ended up doing this case on her third hospital day. I met her in her hospital room and explained the procedure which I planned to perform in detail. I explained the risks and benefits, including the risk of non-union, need for additional surgery, damage to surrounding structures, and blood transfusion, as well as additional risks inherent to all surgery. She understood these risks and wished to proceed. She was well familiar with the procedure from having had the same procedure performed on her other side. I initialed the operative site and completed an informed consent form. I discussed the surgery in detail with her as well as her son. She was wheeled back to the operating room, and anesthesia was induced. A time-out procedure was performed. Radiographs were displayed in the operating room displaying her fracture. I initially began by manipulating the fracture with a combination of varying degrees of rotation and traction. At that point, I noted that there was a large spiral component to the fracture and therefore planned to open the fracture in order to attempt to close it down with a cerclage cable. There was a multi-fragmentary pattern to the fracture with an independent lesser trochanter piece as well as an independent greater trochanter piece. I felt that additional reduction of these subtrochanteric extension pieces would aid in fracture healing so I opened the femur laterally after localizing the site of the comminution fluoroscopically and incised through the IT band and passed a cerclage wire around the proximal femur in the area of the comminution. I tensioned this and unfortunately split the lesser trochanter piece while tensioning it. However, it did close down the fracture site, particularly the spiral component of the piece which extended up into the greater trochanter. I therefore locked it in place and left it there for the remainder of the procedure. I then began to plan the start point for a femoral nail. I probed the greater trochanter with a guide wire and consistently fell into the proximal femur as there was severe comminution in the greater trochanter to such a degree that it was not possible to use the opening reamer. On multiple occasions, I placed the guide wire in a position which I felt was acceptable and passed the opening reamer only to find that it displaced the fracture site and did not result in removal of any bone. The guide wire was passed repeatedly, and I attempted to use the opening reamer repeatedly. However, it never took any bone, so I eventually passed a long-tip guide wire down to the knee and measured for the eventual nail and reamed. I used a 9 mm reamer followed by an 11.5 mm reamer. Neither of these achieved any significant chatter. I then passed a 10 mm nail which was 43, shorter than the 45 I had measured. Despite the lack of any opening reaming, the nail was eventually able to pass through the comminution and the greater trochanter and did not significantly displace the greater trochanter piece when it was inserted. I impacted it down into an appropriate position for a final proximal fixation and centered the nail in the femoral head on a lateral radiograph, and then aligned the outrigger jig with those two so that the eventual screw would end up in the center of the femoral head. Once I had done this, I placed that pin and verified appropriate positioning on AP and lateral views. I then measured and instrumented the proximal fixation, including the interlocking screw in the usual sequence for the Intertan nail. I did apply compression through this, which resulted in the shaft being pulled slightly medially. I then came to the knee and obtained perfect circles and used these to insert two distal interlocking screws. After I had done so, I verified those screws were appropriately positioned on AP and lateral views, and then I removed all of the instrumentation. I obtained final fluoroscopic images verifying acceptable fracture reduction and hardware positioning approximately and distally on both AP and lateral views. I copiously irrigated the surgical incisions. I infiltrated them with a local anesthetic containing epinephrine. I closed the wounds using 0-Vicryl and 2-O-Vicryl and rosalba. I placed a soft dressing. Please note that the assistance of Bakari Zhu MD, was required throughout this case for instrumentation, passing of the cerclage wire, assistance with reductions, retraction, and evaluation of this complex fracture. Without the assistance of Dr. Zhu, the surgery would have been significantly more time- consuming. The patient was awakened from anesthesia and taken to PACU in stable condition. Complications: none Post-operative Condition: stable Disposition: PACU Plan for aftercare: 1. Weightbearing as tolerated 2. May resume Warfarin beginning on postoperative day 1 at discretion of medicine team 3. AM CBC 4. Anticipate eventual return to SNF 5. Followup in [facility] clinic at [facility] in 2 weeks for staple removal and full length femur Xrays
--- NOTE | 2024-07-13 18:59 | PM.PNPO.1 ---
Subjective Subjective Interval history: I checked on Tanya postop. She is resting comfortably in bed. She has a palpable DP pulse and can flex and extend her toes. She is somnolent but interactive. She is not in acute distress and shows no overt signs of severe pain. Her operative side measures longer than her nonoperative side. I asked her about this and she indicated that it has always been that way. Evaluating postop films this does not appear to be due to a malreduction. She has an old abdominopelvic CT scan from November 2023 preinjury which shows a significant scoliotic deformity and resultant pelvic obliquity which could potentially explain this finding. I will revisit this with her at a future date when she is not recovering from anesthesia. Exam Vital Signs (past 8 hours): - 07/13/24 14:24 07/13/24 17:47 07/13/24 17:49 Temperature 97.7 F 98.9 F Pulse Rate 105 H 100 H 100 H Respiratory Rate 21 13 13 Blood Pressure 148/75 H 87/33 L 85/36 L Pulse Oximetry 99 95 100 Oxygen Delivery Method Room Air Room Air Room Air Oxygen Flow Rate 07/13/24 17:51 07/13/24 17:59 07/13/24 18:02 Temperature Pulse Rate 101 H 102 H 100 H Respiratory Rate 13 16 15 Blood Pressure 108/42 L 149/61 H 139/54 L Pulse Oximetry 96 94 92 Oxygen Delivery Method Room Air Room Air Room Air Oxygen Flow Rate 07/13/24 18:06 07/13/24 18:12 07/13/24 18:30 Temperature 97.6 F 96.9 F L Pulse Rate 102 H 103 H 102 H Respiratory Rate 18 19 16 Blood Pressure 120/59 L 107/41 L 123/61 Pulse Oximetry 94 95 94 Oxygen Delivery Method Room Air Room Air Oxygen Flow Rate 0 Oxygen Delivery Method Room Air Oxygen Flow Rate 0 Objective Labs 07/13/24 04:25 07/13/24 04:25 Labs: Laboratory Results - last 24 hr 07/13/24 04:25 WBC 11.3 H RBC 4.13 Hgb 10.1 L Hct 31.9 L MCV 77.4 L MCH 24.6 L MCHC 31.8 RDW 16.3 H Plt Count 319 Neut % (Auto) 75.5 H Lymph % (Auto) 14.9 L [place] % (Auto) 7.0 Eos % (Auto) 2.1 Baso % (Auto) 0.5 Neut # (Auto) 8500 H Lymph # (Auto) 1700 [place] # (Auto) 800 Eos # (Auto) 200 Baso # (Auto) 100 Sodium 138 Potassium 3.8 Chloride 106 Carbon Dioxide 25 BUN 21 H Creatinine 0.66 Estimated GFR > 60 BUN/Creatinine Ratio 31.8 H Glucose 217 H Hemoglobin A1c 7.4 H Calcium 8.2 L PFSH Medical History Chronic atrial fibrillation Social History household members: none Smoking Status: Never smoker alcohol intake: never Assessment & Plan Post-op Postoperative Procedures: Procedures Operation Date: 07/13/24 15:00 Actual Procedure Side Surgeon p Intramedullary Nailing Femur Left Jack Cornell MD Quality VTE Deep Vein Thrombosis/Pulmonary Embolism Present on Admission: No
[2024-07-13] MEDS: INSULIN LISPRO 100 UNIT/ML 3ML VIAL SUBCUT (21:03)
[2024-07-14] MEDS: ACETAMINOPHEN 325 MG TABLET 650 MG PO ×4 (04:24→21:42)
[2024-07-14] MEDS: OXYCODONE IR 5 MG TABLET PO ×4 (04:28→21:38)
[2024-07-14 04:52] LABS: Add Manual Diff / Slide Review NO; Basophils Absolute Auto 0 /uL (0-100); Basophils Percent Auto 0.1 % (0-2); Eosinophils Absolute Auto 0 /uL (0-450); Hemoglobin 8.3 g/dL (12.0-16.0); Lymphocytes Absolute Auto 500 /uL (1100-4500); Lymphocytes Percent Auto 4.7 % (25-40); Mean Corpuscular HGB Conc 31.9 % (30-36); Mean Corpuscular Volume 78.3 fL (80-100); Monocytes Absolute Auto 500 /uL (0-900); Monocytes Percent Auto 4.8 % (3-14); Neutrophils Absolute Auto 9300 /uL (1500-7000); Neutrophils Percent Auto 90.4 % (50-75); Platelet Count 276 X10^3/uL (150-400); Red Blood Cell Count 3.33 X10^6/uL (4.0-5.2); Red Cell Distribution Width 15.9 % (11.6-14.8); White Blood Cell Count 10.3 X10^3/uL (4.5-11.0)
[2024-07-14 05:22] LABS: BUN Creatinine Ratio 26.2 (6-22); Blood Urea Nitrogen 16 mg/dL (7-17); Calcium 7.6 mg/dL (8.4-10.2); Carbon Dioxide 22 mmol/L (22-32); Chloride 107 mmol/L (98-107); Estimated Glomerular Filt Rate > 60 mL/min (>60); Glucose 275 mg/dL (70-99); HEMOLYSIS < 15 (0-50); Potassium 4.7 mmol/L (3.4-5.1); Sodium 138 mmol/L (137-145)
[2024-07-14] MEDS: LEVOTHYROXINE 112 MCG TABLET PO (06:03)
[2024-07-14] MEDS: PROPAFENONE 425 MG 425 EACH PO (08:01)
[2024-07-14] MEDS: INSULIN LISPRO 100 UNIT/ML 3ML VIAL SUBCUT ×4 (08:01→21:39)
[2024-07-14] MEDS: MEMANTINE HCL 5 MG TABLET PO ×2 (08:01→21:37)
[2024-07-14 08:20] VITALS: BP 131/63; PULSE 99; RESP 18; TEMP 36.2; O2SAT 100
--- NOTE | 2024-07-14 08:35 | PM.PNPO.1 ---
Subjective Subjective Date Patient Seen: 07/14/24 Time Patient Seen: 08:15 Interval history: ID: 83yo F s/p Left Cephalomedullary nail by Dr. Cornell on 07/13/24. S: Doing well post op. Reports significant pain yesterday however she feels much better today. Denies F/C/NS/SOB/CP. Seen eating breakfast. Exam Vital Signs (past 8 hours): - 07/14/24 08:20 Temperature 97.2 F L Pulse Rate 99 H Respiratory Rate 18 Blood Pressure 131/63 Pulse Oximetry 100 Oxygen Flow Rate 0 Oxygen Delivery Method Room Air Oxygen Flow Rate 0 Narrative Exam Narrative: LEFT Lower Extremity Dressings C/D/I. Fires TA, EHL, Gastroc/solius SILT S/S/DP/SP/T nerve distribution Cap refill less than 2 Objective Labs 07/14/24 04:12 07/14/24 04:12 Labs: Laboratory Results - last 24 hr 07/13/24 07/14/24 04:25 04:12 WBC 10.3 RBC 3.33 L Hgb 8.3 L Hct 26.0 L MCV 78.3 L MCH 25.0 L MCHC 31.9 RDW 15.9 H Plt Count 276 Neut % (Auto) 90.4 H Lymph % (Auto) 4.7 L [place] % (Auto) 4.8 Eos % (Auto) 0.0 L Baso % (Auto) 0.1 Neut # (Auto) 9300 H Lymph # (Auto) 500 L [place] # (Auto) 500 Eos # (Auto) 0 Baso # (Auto) 0 Sodium 138 Potassium 4.7 Chloride 107 Carbon Dioxide 22 BUN 16 Creatinine 0.61 Estimated GFR > 60 BUN/Creatinine Ratio 26.2 H Glucose 275 H Hemoglobin A1c 7.4 H Calcium 7.6 L PFSH Medical History Chronic atrial fibrillation Social History household members: none Smoking Status: Never smoker alcohol intake: never Assessment & Plan Post-op Postoperative Procedures: Procedures Operation Date: 07/13/24 15:00 Actual Procedure Side Surgeon p Intramedullary Nailing Femur Left Jack Cornell MD Postoperative day: 1 Postoperative status narrative: 83yo F s/p Left cephalomedullary nail on 07/13/24. Doing well. No concerns at this time. Scheduled to see PT today. WBAT LLE ROMAT LLE Physical therapy DVT Proph per primary team Regular diet DISPO: From an ortho standpoint, she is ready for discharge. Will follow up with ortho in approx 2 weeks. Bakari Zhu MD Ortho Quality VTE Deep Vein Thrombosis/Pulmonary Embolism Present on Admission: No
[2024-07-14] MEDS: SODIUM CHLORIDE 0.9% FLUSH 10 ML IV (09:35)
--- NOTE | 2024-07-14 12:38 | CM.DPC ---
Addendum entered by MAN Gaffney 07/14/24 15:01: ADD: Per [facility], they can accept pt Mon 07/16 if auth obtained if SNF needed and can submit for auth today once PT eval note in EMR. BF Original Note: DCP Cont: Per MD, pt tolerated procedure well yesterday and to work with PT/OT and orders placed and eval pending for today. Ortho continues to follow for status post hip surgery. PT/OT pending. SW made initial referral to [facility] to follow and review after PT in case SNF needed before return to [facility]. PASRR done in case SNF needed. Plan: SW to follow closely for PT eval today to determine return to [facility] vs SNF and [facility] review. MAN Gaffney
--- NOTE | 2024-07-14 13:46 | PM.PN.1 ---
Subjective Subjective Interval history: 83 F on coumadin admitted with L femur fracture now POD#1 s/p IMN. patient getting extra food like coffee and cheesecake today leading to some higher blood sugars. Pain controlled this morning, no chest pain or shortness of breath this morning. Exam Vital Signs (past 8 hours): - 07/14/24 08:20 Temperature 97.2 F L Pulse Rate 99 H Respiratory Rate 18 Blood Pressure 131/63 Pulse Oximetry 100 Oxygen Flow Rate 0 Oxygen Delivery Method Room Air Oxygen Flow Rate 0 Narrative Exam Narrative: NAD, alert and oriented, fluent speech, calm.. Lungs clear, normal rate and effort. Heart regular, no murmur gallop or rub. Abdomen is soft, non distended and non tender. Extremities are free of edema. Objective Labs 07/14/24 04:12 07/14/24 04:12 Labs: Laboratory Results - last 24 hr 07/13/24 07/14/24 04:25 04:12 WBC 10.3 RBC 3.33 L Hgb 8.3 L Hct 26.0 L MCV 78.3 L MCH 25.0 L MCHC 31.9 RDW 15.9 H Plt Count 276 Neut % (Auto) 90.4 H Lymph % (Auto) 4.7 L [place] % (Auto) 4.8 Eos % (Auto) 0.0 L Baso % (Auto) 0.1 Neut # (Auto) 9300 H Lymph # (Auto) 500 L [place] # (Auto) 500 Eos # (Auto) 0 Baso # (Auto) 0 Sodium 138 Potassium 4.7 Chloride 107 Carbon Dioxide 22 BUN 16 Creatinine 0.61 Estimated GFR > 60 BUN/Creatinine Ratio 26.2 H Glucose 275 H Hemoglobin A1c 7.4 H Calcium 7.6 L [facility] Medical History Chronic atrial fibrillation Social History household members: none Smoking Status: Never smoker alcohol intake: never Assessment & Plan Assessment & Plan narrative: 1. Ground level fall, resolved. 2. Left intertrochanteric femur fracture, active, POA, pathologic secondary to osteoporosis. 3. DM 2, active. 4. Hypothyroidism, active. 5. Paroxysmal atrial fibrillation 6. Acute blood loss anemia due to surgical procedure Plan: - resume warfarin per pharmacy. - repeat CBC tomorrow with eye on Hg at 8.3 today and will resume home warfarin given no signs/symptoms of active bleeding. -PT/OT ordered today. -sliding scale insulin, if h/h stable can resume home jardiance and metformin tomorrow. -continue home levothyroxine, memantine, propafenone. code: Full DVT: on warfarin. Dispo: inpatient. Unclear if will be able to discharge home or SNF, PT/OT evaluations ordered today. Time-Based Coding :: [TOTAL MINUTES] spent with patient and on the chart (including review of chart, obtaining history, exam, reviewing outside data, placing orders, documenting exam and treatment plan, and counseling patient) on [DATE]. Quality VTE Deep Vein Thrombosis/Pulmonary Embolism Present on Admission: No
--- NOTE | 2024-07-14 15:30 | PT.IIE ---
Current Diagnoses Fracture of unspecified part of neck of left femur, initial encounter for closed fracture (07/11/24) Displaced intertrochanteric fracture of left femur, initial encounter for closed fracture (07/11/24) Surgery Performed Operation Date: 07/13/24 15:00 Actual Procedures p Intramedullary Nailing Femur(Left) - Jack Cornell MD Medical History (Last Reviewed 07/11/24 @ 10:34 by Jose Rafael Peralta MD) Chronic atrial fibrillation Physical Therapy Inpatient Evaluation/Re-Eval M1 PT/OT-IP Prior Functional Status Start: 07/14/24 17:13 Freq: NEEDED Status: Active Protocol: Document 07/14/24 15:30 AB (Rec: 07/14/24 17:28 AB Desktop) Medical Review Prior Functional Status Medical History Reviewed Yes Communication able to make needs known; [place] Mobility and Gait pt stated that she was modified independent with all mobilities and ambulation using a 4WW but does not use any AD during the night when she needs to use the toilet in her room Social History Household Members none Living Arrangements Assisted Living Number of Floors (Floors) One Floor Number of Stairs To Enter/Railing? pt lives at [facility] Environment High Toilet,Walk in Shower, Built-In Shower Seat Home Equipment Front Wheel Walker,Four Wheel Walker,Hand Held Shower,Grab Bars In Shower M2 PT-IP Current Condition Start: 07/14/24 17:13 Freq: NEEDED Status: Active Protocol: Document 07/14/24 15:30 AB (Rec: 07/14/24 17:28 AB Desktop) Physical Therapy Current Condition Current Condition Evaluation Date 07/14/24 Treatment Diagnosis L femur fx s/p nailing; difficulty in walking Onset Date 07/11/24 M3 PT-IP Subjective Start: 07/14/24 17:13 Freq: NEEDED Status: Active Protocol: Document 07/14/24 15:30 AB (Rec: 07/14/24 17:28 AB Desktop) Subjective Physical Therapy Visit Type Type Initial Evaluation Visit Start Time 15:30 Visit Stop Time 16:15 Number of TRIMMER MEAT Visits 0 Physical Therapy Visit Comments Patient Comments agreeable to do PT Therapy Pain Assessment Pain When Pain Assessed At Rest Pain Present Pain Present Pain Reported Location left hip Intensity 5 Scale Used Numeric (0 - 10) Pain Management Techniques Apply Cold,Distraction, Modification of Treatment,Re- positioning,Timing of Activity with Medications M4 PT-IP Mobility and Gait Start: 07/14/24 17:13 Freq: NEEDED Status: Active Protocol: Document 07/14/24 15:30 AB (Rec: 07/14/24 17:28 AB Desktop) PT-Bed Mobility Assessment Supine to Sit Supine to Sit Maximum Assistance,Head of Bed Elevated,Bedrails Scooting Scooting to Edge of Bed Maximum Assistance PT-Transfer Assessment Sit to and From Stand Sit to and from Stand Maximum Assistance,2 Person Assistance,Use of Upper Extremities Equipment Transfer Assistive Device Gait Belt,Front Wheeled Walker Orthotic/Prosthetic Devices or Brace: No Transfers Transfer Destination Chair Transfer Technique Stand Step Pivot Transfer Ability Level of Assist Maximum Assistance,2 Person Assistance,Use of Upper Extremities Comments Mobility Comments pt in bed and agreed to do PT. obtained PLOF and home set up . BP: 136/64. completed supine heel slides LLE prior to mobility. completed supine to sit max A and max cues. able to sit on EOB CGA. sit to stand from EOB max A x 2 and max cues. able to stand max A using fWW for support. completed step transfer to chair using FWW max A x 2 and max cues. (+) L knee buckling requiring max A to stabilize. pt refused further activities but agreed to stay up on the chair for dinner. positioned pt on the chair. call light and table placed within reach. ice pack provided. post-op folder provided to pt. informed pt regarding SNF rehab recommendation. informed nurse regarding mechanical lift transfer recommendation at this time due to L knee tends to buckle Gait Assessment Comments Gait Comments unable at this time PT-Balance Assessment Sitting Balance and Reactions Static Sitting Balance Ability Good Dynamic Sitting Balance Ability Fair Standing Balance and Reactions Static Standing Balance Ability Poor Dynamic Standing Balance Ability Poor Device Used FWW M5 PT-IP Objective Assessments Start: 07/14/24 17:13 Freq: NEEDED Status: Active Protocol: Document 07/14/24 15:30 AB (Rec: 07/14/24 17:28 AB Desktop) Orientation Orientation/Cognition Level of Alertness Alert Orientation Name Language Function Ability Hard of Hearing Safety Awareness Decreased Safety Awareness Memory Description Short Term Impaired Comments with slight confusion Gross Range of Motion Lower Extremity ROM Assessment Within Functional Limits Strength Lower Extremity Strength Assessment Left Impaired Hip 2+/5 Knee 3+/5 Coordination Assessment Gross Coordination Gross Coordination WNL Sensation Assessment Sensation Gross Sensation WNL Muscle Tone Muscle Tone WNL Yes M6 PT-IP Treatment Start: 07/14/24 17:13 Freq: NEEDED Status: Active Protocol: Document 07/14/24 15:30 AB (Rec: 07/14/24 17:28 AB Desktop) Physical Therapy Treatment Exercises Exercises Heel Slides Education Education Provided Precautions,Weight Bearing Status,Post-Op Packet,Safety M7 PT-IP Assessment and Plan Start: 07/14/24 17:13 Freq: NEEDED Status: Active Protocol: Document 07/14/24 15:30 AB (Rec: 07/14/24 17:28 AB Desktop) PT Summary Assessment and Plan Potential Rehabilitation Potential Fair Status of Condition at Evaluation Evolving Summary Impairments Pain,ROM,Strength,Balance, Coordination,Sensation,Tone, Cognition,Bed Mobility, Transfers,Gait,Activity Tolerance Assessment Summary pt is an 83 y/o F who had a fall and sustain a L femur fx. pt underwent intramedullary nailing POD 1. pt is WBAT on LLE per operative note. pt requiring max A x 2 and max cues with transfers using FWW with (+) L knee buckling. pt unable to ambulate at this time. pt will require SNF rehab to improve overall strength and mobility independence. Goals Bed Mobility Goal Minimal Assistance Transfer Goal Minimal Assistance,Front Wheeled Walker Gait Goal Minimal Assistance,Front Wheel Walker Gait Distance 50 Other Goals improve bed mobility, transfers, ambulation using fWW ~ 100 ft SBA Days to Meet Goals 10 Frequency of Treatment Other frequency 1-2x/day Treatment Plan Physical Therapy Treatment Plan Bed Mobility Training,Transfer Training,Gait Training, Therapeutic Exercise,Balance Retraining,Post Op Education, Discharge Planning,Hot or Cold Pack,Neuromuscular Re-ed, Coordination Retraining,Manual Therapy Weight Bearing Status Weight Bearing Status Weight Bear as Tolerated Allowed Weight Bearing Amount (enter % LLE WBAT or #) (%) Recommendations To Nursing Amount of Assist Needed Mechanical Lift Discharge Recommendations PT Discharge Recommendations SNF Rehab Transportation Needs at Discharge Wheelchair/Cabulance - PT assist 2
[2024-07-14 17:13] VITALS: BP 124/64; PULSE 106; RESP 16; TEMP 36.2; O2SAT 99
[2024-07-14] MEDS: WARFARIN 2.5 MG TABLET PO (18:44)
[2024-07-14] MEDS: METFORMIN HCL 500 MG TABLET 1000 MG PO (18:45)
[2024-07-14 21:36] VITALS: BP 137/59; PULSE 102; RESP 16; TEMP 36.8; O2SAT 97
[2024-07-15] MEDS: LEVOTHYROXINE 112 MCG TABLET PO (06:18)
[2024-07-15] MEDS: OXYCODONE IR 5 MG TABLET PO ×4 (06:18→20:37)
[2024-07-15 07:37] LABS: Hemoglobin 7.5 g/dL (12.0-16.0); Mean Corpuscular HGB Conc 31.4 % (30-36); Mean Corpuscular Hemoglobin 24.8 PG (26-34); Platelet Count 270 X10^3/uL (150-400); Red Blood Cell Count 3.03 X10^6/uL (4.0-5.2); Red Cell Distribution Width 16.5 % (11.6-14.8); White Blood Cell Count 9.9 X10^3/uL (4.5-11.0)
[2024-07-15 08:00] VITALS: BP 117/46; PULSE 107; RESP 16; TEMP 36.6; O2SAT 98
[2024-07-15] MEDS: MEMANTINE HCL 5 MG TABLET PO ×2 (08:12→20:37)
[2024-07-15] MEDS: INSULIN LISPRO 100 UNIT/ML 3ML VIAL SUBCUT ×4 (08:13→20:55)
[2024-07-15] MEDS: PROPAFENONE 425 MG 425 EACH PO (08:13)
[2024-07-15] MEDS: METFORMIN HCL 500 MG TABLET 1000 MG PO ×2 (08:31→16:58)
--- NOTE | 2024-07-15 08:47 | PM.PNPO.1 ---
Subjective Subjective Date Patient Seen: 07/15/24 Time Patient Seen: 08:47 Interval history: ID: 83yo F s/p Left Cephalomedullary nail by Dr. Cornell on 07/13/24. S: Doing well post op. Pain is well managed. Denies F/C/NS/SOB/CP. Exam Vital Signs (past 8 hours): - 07/15/24 08:00 Temperature 97.8 F Pulse Rate 107 H Respiratory Rate 16 Blood Pressure 117/46 L Pulse Oximetry 98 Oxygen Flow Rate 0 Oxygen Delivery Method Room Air Oxygen Flow Rate 0 Narrative Exam Narrative: LEFT Lower Extremity Dressings C/D/I. Fires TA, EHL, Gastroc/solius SILT S/S/DP/SP/T nerve distribution Cap refill less than 2 Objective Labs 07/15/24 07:31 07/14/24 04:12 Labs: Laboratory Results - last 24 hr 07/15/24 07:31 WBC 9.9 RBC 3.03 L Hgb 7.5 L Hct 24.0 L MCV 79.0 L MCH 24.8 L MCHC 31.4 RDW 16.5 H Plt Count 270 PFSH Medical History Chronic atrial fibrillation Social History household members: none Smoking Status: Never smoker alcohol intake: never Assessment & Plan Post-op Postoperative Procedures: Procedures Operation Date: 07/13/24 15:00 Actual Procedure Side Surgeon p Intramedullary Nailing Femur Left Jack Cornell MD Postoperative status narrative: 83yo F s/p Left cephalomedullary nail on 07/13/24. Her blood sugars continue to be high. IM increased her insulin. H/H Dropped again. WIll continue to trend. WBAT LLE ROMAT LLE Physical therapy DVT Proph per primary team Diabetic Diet Trend H/H DISPO: From an ortho standpoint, she is ready for discharge. Will follow up with ortho in approx 2 weeks. Bakari Zhu MD Ortho Quality VTE Deep Vein Thrombosis/Pulmonary Embolism Present on Admission: No
[2024-07-15 09:45] LABS: INR 1.1 (0.9-1.3); Prothrombin Time 12.1 SECONDS (9.4-12.5)
[2024-07-15] MEDS: ACETAMINOPHEN 325 MG TABLET 650 MG PO ×3 (10:55→23:40)
[2024-07-15] MEDS: INSULIN GLARGINE 100 UNIT/ML 3ML PEN 10 UNIT SUBCUT (10:55)
--- NOTE | 2024-07-15 10:59 | PT-IP ANOTE ---
Pt with steadily dropping Hgb post-op and is 7.5 today in an 83 y/o female s/p hip surgery. Will hold PT today and check next date.
--- NOTE | 2024-07-15 11:24 | PC.NURSE ---
Pt reports soreness on coccyx, observed skin, no blanchable or redness noted. Applied mepilex pad; pt tolerated well, said that pad feels nice and cool and very comfortable. Bed low/locked, pt resting comfortably, call light w/in reach, plan of care continues.
--- NOTE | 2024-07-15 13:06 | CM.DPC ---
DCP SNF Planning: Per MD, pt's H&H dropped some today and not yet medically stable to discharge yet but anticipate tomorrow if stable. Per PT, recommending SNF at d/c. [facility] admissions confirms they just obtained insurance auth for SNF and can accept tomorrow around 1130 if stable. NANCY called pt's son Will and updated on SNF recommendation and [facility] acceptance and pt now considering return to [facility] vs maybe another SNF but uncertain. Discussed pt likely stable for d/c tomorrow Mon or and can send clinicals to [facility] to review to see if they feel they can meet pt's needs but high likelihood they will want SNF first since she is below baseline with mobility and need to have contracted [facility] SNF that also has a bed as a backup plan. Son agreeable to talk with pt this evening when he returns to confirm SNF preference in case [facility] cannot accept. Son states that pt is very black and white and best to give pt a timeframe for healing that is over projected rather than under as she will only give the amount of effort for the time frame given to her to be back to normal. Discussed with son that also depends on how long [facility] auth will continue to cover patient at SNF and difficult to give specific amount of time needed at SNF but will attempt to have medical team give estimate for healing. Secure emailed pt's clinicals to Victoria at [facility] requesting review to confirm if they can accept back at d/c or SNF requested. Plan: NANCY to follow closely in the AM with Beatriz review of the pt to determine SNF vs return and to follow up with pt and son on confirmation of SNF preference as [facility] can accept and auth obtained. MAN Gaffney
--- NOTE | 2024-07-15 14:11 | P.PN_ITS ---
Subjective Subjective Interval history: 83 F on coumadin admitted with L femur fracture now POD#2 s/p IMN. Pain controlled this morning, no chest pain or shortness of breath this morning. Hg has fallen from 11 to nearly 7.5 today after surgery. Exam Vital Signs (past 8 hours): - 07/15/24 08:00 Temperature 97.8 F Pulse Rate 107 H Respiratory Rate 16 Blood Pressure 117/46 L Pulse Oximetry 98 Oxygen Flow Rate 0 Oxygen Delivery Method Room Air Oxygen Flow Rate 0 Narrative Exam Narrative: NAD, alert and oriented, fluent speech, calm.. Lungs clear, normal rate and effort. Heart regular, no murmur gallop or rub. Abdomen is soft, non distended and non tender. Extremities are free of edema. Objective Labs 07/15/24 07:31 07/14/24 04:12 Labs: Laboratory Results - last 24 hr 07/15/24 07/15/24 07:31 09:25 WBC 9.9 RBC 3.03 L Hgb 7.5 L Hct 24.0 L MCV 79.0 L MCH 24.8 L MCHC 31.4 RDW 16.5 H Plt Count 270 PT 12.1 INR 1.1 [facility] Medical History Chronic atrial fibrillation Social History household members: none Smoking Status: Never smoker alcohol intake: never Assessment & Plan Assessment & Plan narrative: 1. Ground level fall, resolved. 2. Left intertrochanteric femur fracture, active, POA, pathologic secondary to osteoporosis. 3. DM 2, active. 4. Hypothyroidism, active. 5. Paroxysmal atrial fibrillation 6. Acute blood loss anemia due to surgical procedure Plan: - have resumed warfarin per pharmacy. - repeat CBC tomorrow with eye on Hg at 7.5 today and will resume home warfarin given no signs/symptoms of active bleeding. No evidence of hematoma on exam today. -PT/OT ordered today. -sliding scale insulin, if h/h stable can resume home jardiance and metformin tomorrow. -continue home levothyroxine, memantine, propafenone. code: Full DVT: on warfarin. Dispo: inpatient. Discharge to SNF, needs h/h to stabilize prior to discharge. Likely 1-2 more days. Time-Based Coding :: [TOTAL MINUTES] spent with patient and on the chart (including review of chart, obtaining history, exam, reviewing outside data, placing orders, documenting exam and treatment plan, and counseling patient) on [DATE]. Quality VTE Deep Vein Thrombosis/Pulmonary Embolism Present on Admission: No
[2024-07-15] MEDS: WARFARIN 2.5 MG TABLET PO (16:58)
[2024-07-15 19:50] VITALS: BP 126/66; PULSE 111; RESP 16; TEMP 36.6; O2SAT 99
[2024-07-15] MEDS: CYCLOBENZAPRINE 10 MG TABLET PO (23:42)
--- NOTE | 2024-07-16 02:40 | PC.NURSE ---
Pt c/o that she doesn't want to turn in bed, uppon initial assessment this nurse said to the patient we need to turn you on your side and I need to assess you bottom, pt stated someone already looked at my bottom this morning, pt educated on PI prevention, pt currently has a large sacral mepilex in her botoom, no open area noted during this nurse assessment.
[2024-07-16] MEDS: OXYCODONE IR 5 MG TABLET PO ×4 (03:09→21:08)
[2024-07-16 05:59] LABS: Hemoglobin 7.6 g/dL (12.0-16.0); Mean Corpuscular HGB Conc 31.8 % (30-36); Mean Corpuscular Hemoglobin 25.1 PG (26-34); Mean Corpuscular Volume 78.8 fL (80-100); Platelet Count 248 X10^3/uL (150-400); Red Blood Cell Count 3.05 X10^6/uL (4.0-5.2); Red Cell Distribution Width 16.6 % (11.6-14.8)
[2024-07-16 06:12] LABS: BUN Creatinine Ratio 27.9 (6-22); Blood Urea Nitrogen 19 mg/dL (7-17); Calcium 8.2 mg/dL (8.4-10.2); Carbon Dioxide 29 mmol/L (22-32); Chloride 102 mmol/L (98-107); Estimated Glomerular Filt Rate > 60 mL/min (>60); Glucose 204 mg/dL (70-99); HEMOLYSIS < 15 (0-50); Potassium 4.3 mmol/L (3.4-5.1); Sodium 136 mmol/L (137-145)
[2024-07-16 06:16] LABS: INR 1.2 (0.9-1.3); Prothrombin Time 14.1 SECONDS (9.4-12.5)
[2024-07-16] MEDS: LEVOTHYROXINE 112 MCG TABLET PO (06:48)
[2024-07-16 07:00] VITALS: BP 112/57; PULSE 108; RESP 13; TEMP 36.6; O2SAT 98
[2024-07-16] MEDS: polyethylene glycoL 3350 17 GM POWD.PACK PO (08:09)
[2024-07-16] MEDS: MEMANTINE HCL 5 MG TABLET PO ×2 (08:09→20:59)
[2024-07-16] MEDS: PROPAFENONE 425 MG 425 EACH PO (08:09)
[2024-07-16] MEDS: METFORMIN HCL 500 MG TABLET 1000 MG PO ×2 (08:09→17:01)
[2024-07-16] MEDS: INSULIN GLARGINE 100 UNIT/ML 3ML PEN 10 UNIT SUBCUT (08:10)
[2024-07-16] MEDS: INSULIN LISPRO 100 UNIT/ML 3ML VIAL SUBCUT ×4 (08:10→20:58)
--- NOTE | 2024-07-16 09:24 | PM.DS.1 ---
History of Present Illness History of Present Illness Date Patient Seen: 07/17/24 Chief complaint: GLF L hip Narrative: Chief complaint: Left hip pain after ground level fall and hip fracture History of present illness: The patient is an 83-year-old female who is a resident of [facility]. She had a fall and subsequent hip fracture. She presented to the ED where imaging confirmed a hip fracture. She was significant pain with any movement. She denies any other injuries. She was on chronic warfarin. The emergency department did talk to Orthopedics, they requested holding warfarin and will likely repair of the hip on July 12. She was an additional history of hypothyroidism, and diabetes. She denies any chest pain, she notes an abnormal ECG was obtained recently by her primary care doctor, Dr. Thurman. He had ordered an echocardiogram to follow up on this. She denies any known history of heart problems and denies dyspnea, or chest pain. Hospital course: Date of procedure: 07/13/24 Time of procedure: 17:00 Pre-op diagnosis: Intertrochanteric left femur fracture Intramedullary nailing of intertrochanteric left femur fracture with subtrochanteric extension 07/15-07/16 postoperative course was uncomplicated hemoglobin 7.5 postoperatively in stable the next day 7.6 Patient referred for rehab long-term facility and will be on supplemental iron however was orthostatic today started on IV fluids recheck labs and hemoglobin tomorrow Review of systems: No fevers chills No headache No palpitations chest pain shortness for breath No nausea vomiting diarrhea No paresthesia paresis Physical exam: No acute distress HEENT unremarkable Neck no carotid bruits Unlabored respirations Abdomen not distended Extremities no edema Assessment and plan: 1. Ground level fall, resolved. 2. Left intertrochanteric femur fracture, active, POA, pathologic secondary to osteoporosis. 3. DM 2, active. 4. Hypothyroidism, active. 5. Paroxysmal atrial fibrillation 6. Acute blood loss anemia due to surgical procedure Plan: - have resumed warfarin per pharmacy. - repeat CBC tomorrow with eye on Hg at 7.5 today and will resume home warfarin given no signs/symptoms of active bleeding. No evidence of hematoma on exam today. -PT/OT ordered today. -sliding scale insulin, if h/h stable can resume home jardiance and metformin with the addition of basal bolus insulin. -continue home levothyroxine, memantine, propafenone. code: Full DVT: on warfarin. Discharge to SNF, Time-Based Coding :: 35 minutes spent with patient and on the chart (including review of chart, obtaining history, exam, reviewing outside data, placing orders, documenting exam and treatment plan, and counseling patient). Discharge Providers Provider Date of admission: 07/11/24 07:56 Discharge Date: 07/17/24 Primary care physician: Margarita Payne DO Consults: 07/11/24 14:34 Consult to Orthopedic Surgery Routine Comment: Consulting Provider: Jack Cornell Reason for consultation: Intertrochanteric hip fracture Has provider been notified: Yes 07/14/24 10:14 Consult to Occupational Therapy Evaluate & Treat Comment: Physician Instructions: Evaluate and treat Consult to Physical Therapy Evaluate & Treat Comment: Physician Instructions: Evaluate and Treat Discharge provider: Won Tejeda MD Exam Vital Signs (past 8 hours): - 07/16/24 07:00 Temperature 97.8 F Pulse Rate 108 H Respiratory Rate 13 Blood Pressure 112/57 L Pulse Oximetry 98 Oxygen Flow Rate 0 Oxygen Delivery Method Room Air Oxygen Flow Rate 0 Objective Labs 07/17/24 09:31 07/17/24 09:31 Labs: Laboratory Results - last 24 hr 07/15/24 07/16/24 09:25 05:49 WBC 10.0 RBC 3.05 L Hgb 7.6 L Hct 24.0 L MCV 78.8 L MCH 25.1 L MCHC 31.8 RDW 16.6 H Plt Count 248 PT 12.1 14.1 H INR 1.1 1.2 Sodium 136 L Potassium 4.3 Chloride 102 Carbon Dioxide 29 BUN 19 H Creatinine 0.68 Estimated GFR > 60 BUN/Creatinine Ratio 27.9 H Glucose 204 H Calcium 8.2 L PFSH Medical History Chronic atrial fibrillation Social History household members: none Smoking Status: Never smoker alcohol intake: never Discharge Plan Discharge Plan Patient Disposition: SNF Discharge orders & Medications Prescriptions: New insulin glargine [Lantus Solostar U-100 Insulin] 100 unit/mL (3 mL) Insulin Pen 10 unit SUBCUT DAILY Qty: 15 0RF polyethylene glycol 3350 17 gram Powder In Packet 17 gm PO DAILY PRN (Reason: Constipation) Qty: 14 0RF insulin lispro [Admelog U-100 Insulin lispro] 100 unit/mL Solution 0 unit SUBCUT ACHS Qty: 15 0RF oxycodone 5 mg Tablet 5 mg PO Q3H PRN (Reason: Pain, Moderate (4-6)) Qty: 12 0RF Continued acetaminophen 500 mg tablet 1,000 mg PO QID PRN (Reason: Pain, Moderate) Jardiance 10 mg tablet 10 mg PO DAILY levothyroxine 112 mcg tablet 112 mcg PO DAILY metformin 1,000 mg tablet 1,000 mg PO BID omeprazole 20 mg tablet,delayed release (DR/EC) 20 mg PO BID venlafaxine 75 mg tablet 75 mg PO BID cholecalciferol (vitamin D3) 50 mcg (2,000 unit) capsule 50 mcg PO DAILY warfarin 2.5 mg tablet 2.5 mg PO DAILY levalbuterol tartrate [Xopenex HFA] 45 mcg/actuation HFA aerosol inhaler 2 puff inhalation Q4-6H PRN (Reason: Shortness Of Breath Or Wheezing) cyanocobalamin (vitamin B-12) 1,000 mcg tablet 1,000 mcg PO DAILY memantine 5 mg tablet 5 mg PO BID propafenone 425 mg capsule,extended release 12 hr 425 mg PO DAILY Follow up/Referrals: Margarita Payne DO [Primary Care Provider, Family Practice] Visit Report/Discharge Packet Stand Alone Forms: Patient Portal/API Discharge Data Primary Care Provider: Margarita Payne Quality VTE Deep Vein Thrombosis/Pulmonary Embolism Present on Admission: No
--- NOTE | 2024-07-16 10:58 | PM.PNPO.1 ---
Subjective Subjective Interval history: PROGRESS NOTE PATIENT SUMMARY Tanya Joe is a patient on postoperative day 3 after undergoing intramedullary nailing of a femur fracture. The primary reason for today's encounter is to assess her recovery progress and address postoperative challenges, including physical therapy needs and discharge planning. PAST SURGICAL HISTORY - Intramedullary nailing of a femur fracture performed by me on a Tuesday, complicated by significant comminution of the fracture which made reduction more challenging. The patient was initially delayed for surgery due to a high INR. She has also had surgery on the right side previously, which is relevant to her current condition. - No other specific surgeries mentioned. SUBJECTIVE The patient reports feeling hopeful about returning to her residence at [facility] but understands the recommendation for a rehabilitation stay due to current physical limitations. She expressed concern about the length of time needed for recovery, expecting it might be longer compared to her previous right-side fracture due to the severity of the current fracture and her age. She also mentioned having two cats at [facility], affecting her living situation. The patient is aware of the importance of not rushing her discharge to prevent falls and further injury. PHYSICAL EXAM Constitutional: The patient is mentally alert and oriented. She is actively participating in discussions regarding her care and discharge plans. Musculoskeletal: Dressings are clean, Flexing/extending ankle and hallux. Limb length discrepancy with operative side longer at the ankles which patient has reported was present preoperatively ASSESSMENT 1. Postoperative recovery from intramedullary nailing of a femur fracture 2. Anemia post-surgery with hemoglobin stabilized at 7.6 3. Need for further physical therapy to improve mobility and assess discharge readiness PLAN - Continue monitoring hemoglobin levels; no blood transfusion is planned at this time. - Arrange additional physical therapy sessions to assess improvement in mobility and function. - Coordinate with social workers and nursing facilities to evaluate discharge options and ensure appropriate assistance levels are available. - Communicate with [facility] regarding the patient's progress and potential discharge readiness based on updated PT assessments. Exam Vital Signs (past 8 hours): - 07/16/24 07:00 Temperature 97.8 F Pulse Rate 108 H Respiratory Rate 13 Blood Pressure 112/57 L Pulse Oximetry 98 Oxygen Flow Rate 0 Oxygen Delivery Method Room Air Oxygen Flow Rate 0 Objective Labs 07/16/24 05:49 07/16/24 05:49 Labs: Laboratory Results - last 24 hr 07/16/24 05:49 WBC 10.0 RBC 3.05 L Hgb 7.6 L Hct 24.0 L MCV 78.8 L MCH 25.1 L MCHC 31.8 RDW 16.6 H Plt Count 248 PT 14.1 H INR 1.2 Sodium 136 L Potassium 4.3 Chloride 102 Carbon Dioxide 29 BUN 19 H Creatinine 0.68 Estimated GFR > 60 BUN/Creatinine Ratio 27.9 H Glucose 204 H Calcium 8.2 L PFSH Medical History Chronic atrial fibrillation Social History household members: none Smoking Status: Never smoker alcohol intake: never Assessment & Plan Post-op Postoperative Procedures: Procedures Operation Date: 07/13/24 15:00 Actual Procedure Side Surgeon p Intramedullary Nailing Femur Left Jack Cornell MD Quality VTE Deep Vein Thrombosis/Pulmonary Embolism Present on Admission: No
--- NOTE | 2024-07-16 11:19 | CM.DPC ---
Addendum entered by MAN Gaffney 07/16/24 12:15: ADD: SW spoke to pt's insurance [id number] and updated on pt/family preference now on [facility] and CM will work to change auth request from [facility] back to [facility] and should have auth number to provide to NANCY and Debbie shortly. Updated Sulma at [facility]. SW left msg for PT Transcripter Grace requesting urgent PT session with pt today lima to finalize discharge [facility] vs SNF for hopeful d/c today. BF Original Note: DCP SNF Planning: Per MD and Ortho, pt's H&H stable and can work with therapies today and likely stable for d/c to lower level of care. NANCY spoke to son and updated on likely d/c today and he confirms that [facility] is not his preference and discussed need to get accepting SNF for possibly today that is contracted with her [facility] insurance and he is agreeable with SW calling [facility], [facility], and [facility] to confirm if any have beds and can accept today. [facility]- left msg [facility]- have a bed and likely could accept today and can submit for auth once [facility] auth cancelled [facility]- likely cannot accept today NANCY spoke to Montse at [facility] and she confirms she and their [employer] reviewed pt clinicals and do not feel they can meet her needs at d/c for return but requiring SNF before return. NANCY met bedside with pt and son and updated on above and pt having difficulty understanding that she is not at her independent baseline and requiring assist and the reason SNF needed before return to [facility]. Ortho Surgeon arrived bedside and kindly answered pt and son questions and seem more in agreement with SNF if needed. Ortho and pt/family wanting to work with PT again today to confirm pt's assist level and need for SNF. PT currently in a training until about 1200 before PT might be able to work with pt. Pt and son now confirm that they reviewed [facility] more closely online at [email or web address] and the alert notice was actually a few years ago and therefore they no longer have concerns with going to [facility] if SNF needed. SW updated [facility] admissions and she will attempt to determine if she needs to re-submit for [facility] SNF auth or if she can use the existing auth. Plan: SW to follow closely for further PT to confirm SNF vs return to [facility] today vs tomorrow pending timeline of coordination. MAN Gaffney
[2024-07-16] MEDS: ACETAMINOPHEN 325 MG TABLET 650 MG PO ×3 (12:06→22:20)
--- NOTE | 2024-07-16 13:33 | PT.IPTN ---
Current Diagnoses Fracture of unspecified part of neck of left femur, initial encounter for closed fracture (07/11/24) Displaced intertrochanteric fracture of left femur, initial encounter for closed fracture (07/11/24) Surgery Performed Operation Date: 07/13/24 15:00 Actual Procedures p Intramedullary Nailing Femur(Left) - Jack Cornell MD Physical Therapy Treatment Note M2 PT-IP Current Condition Start: 07/14/24 17:13 Freq: NEEDED Status: Active Protocol: Document 07/14/24 15:30 AB (Rec: 07/14/24 17:28 AB Desktop) Physical Therapy Current Condition Current Condition Evaluation Date 07/14/24 Treatment Diagnosis L femur fx s/p nailing; difficulty in walking Onset Date 07/11/24 M3 PT-IP Subjective Start: 07/14/24 17:13 Freq: NEEDED Status: Active Protocol: Document 07/16/24 13:01 MB (Rec: 07/16/24 13:33 MB Desktop) Subjective Physical Therapy Visit Type Type Treatment Note Visit Start Time 13:01 Visit Stop Time 13:26 Notes Hgb is 7.6 today, only .1 higher than last date, but SW states plan is to d/c after therapy today. After her response to mobility, PT feels low Hgb may be an issue Number of MANAGER INVENTORY CONTROL Visits 0 Physical Therapy Visit Comments Patient Comments Pt nods, no, when therapists enter to work with pt Therapy Pain Assessment Pain When Pain Assessed At Rest Pain Present Pain Present Pain Reported Location left hip Intensity 5 M4 PT-IP Mobility and Gait Start: 07/14/24 17:13 Freq: NEEDED Status: Active Protocol: Document 07/16/24 13:01 MB (Rec: 07/16/24 13:33 MB Desktop) PT-Bed Mobility Assessment Supine to Sit Supine to Sit Contact Guard Assistance,1 Person Assistance,Head of Bed Elevated,Bedrails Scooting Scooting to Edge of Bed Contact Guard Assistance PT-Transfer Assessment Sit to and From Stand Sit to and from Stand Moderate Assistance,Maximum Assistance,2 Person Assistance ,Use of Upper Extremities Equipment Transfer Assistive Device Gait Belt,Front Wheeled Walker Orthotic/Prosthetic Devices or Brace: No Transfers Transfer Destination Chair Transfer Technique Scooting feet Transfer Ability Level of Assist Maximum Assistance,2 Person Assistance,Use of Upper Extremities Comments Mobility Comments Bed mobility takes 10' and constant encouragement and cues from PT, HOB is increased and pt scoots left leg to the left with right foot, takes many rest breaks, CGA for sitting and scooting to EOB with lots of cues and PT raises lower bed rail and she holds onto this Gait Assessment Comments Gait Comments Upon getting to chair, pt's face becomes white and she stares to ceiling and is not responsive for a few seconds. Nsg called in and her BP and HR in right UE are 107/47, 123 , pt recovers after 30 sec to a minute PT-Balance Assessment Sitting Balance and Reactions Static Sitting Balance Ability Good Dynamic Sitting Balance Ability Fair Standing Balance and Reactions Static Standing Balance Ability Poor Dynamic Standing Balance Ability Poor Device Used FWW M5 PT-IP Objective Assessments Start: 07/14/24 17:13 Freq: NEEDED Status: Active Protocol: Document 07/14/24 15:30 AB (Rec: 07/14/24 17:28 AB Desktop) Orientation Orientation/Cognition Level of Alertness Alert Orientation Name Language Function Ability Hard of Hearing Safety Awareness Decreased Safety Awareness Memory Description Short Term Impaired Comments with slight confusion Gross Range of Motion Lower Extremity ROM Assessment Within Functional Limits Strength Lower Extremity Strength Assessment Left Impaired Hip 2+/5 Knee 3+/5 Coordination Assessment Gross Coordination Gross Coordination WNL Sensation Assessment Sensation Gross Sensation WNL Muscle Tone Muscle Tone WNL Yes M6 PT-IP Treatment Start: 07/14/24 17:13 Freq: NEEDED Status: Active Protocol: Document 07/14/24 15:30 AB (Rec: 07/14/24 17:28 AB Desktop) Physical Therapy Treatment Exercises Exercises Heel Slides Education Education Provided Precautions,Weight Bearing Status,Post-Op Packet,Safety M7 PT-IP Assessment and Plan Start: 07/14/24 17:13 Freq: NEEDED Status: Active Protocol: Document 07/16/24 13:01 MB (Rec: 07/16/24 13:33 MB Desktop) PT Summary Assessment and Plan Potential Rehabilitation Potential Fair Status of Condition at Evaluation Unstable Summary Impairments Pain,ROM,Strength,Balance, Coordination,Sensation,Tone, Cognition,Bed Mobility, Transfers,Gait,Activity Tolerance Progress Towards Goals Slow Progress due to Medical Issues Assessment Summary PT held last date d/t low Hgb of 7.5. Hgb is 7.6 today, only .1 higher than last date, and SW states plan is to d/c after therapy today. After her response to mobility, PT feels low Hgb may be an issue and see findings above. Pt requires +2 assistance to get to the chair where she is unresponsive for a few seconds , her face becomes white and she is hypotensive and tachycardic. Recommend d/c to SNF when she is stable for functional mobility. Goals Bed Mobility Goal Minimal Assistance Transfer Goal Minimal Assistance,Front Wheeled Walker Gait Goal Minimal Assistance,Front Wheel Walker Gait Distance 50 Other Goals improve bed mobility, transfers, ambulation using fWW ~ 100 ft SBA Days to Meet Goals 10 Frequency of Treatment Frequency Of Treatment Once a Day Treatment Plan Physical Therapy Treatment Plan Bed Mobility Training,Transfer Training,Gait Training, Therapeutic Exercise,Balance Retraining,Post Op Education, Discharge Planning,Hot or Cold Pack,Neuromuscular Re-ed, Coordination Retraining,Manual Therapy Weight Bearing Status Weight Bearing Status Weight Bear as Tolerated Allowed Weight Bearing Amount (enter % LLE WBAT or #) (%) Recommendations To Nursing Amount of Assist Needed Mechanical Lift Discharge Recommendations PT Discharge Recommendations SNF Rehab Transportation Needs at Discharge Wheelchair/Cabulance - PT assist 2
--- NOTE | 2024-07-16 14:36 | OT.IP.EVAL ---
Current Diagnoses Fracture of unspecified part of neck of left femur, initial encounter for closed fracture (07/11/24) Displaced intertrochanteric fracture of left femur, initial encounter for closed fracture (07/11/24) Surgery Performed Operation Date: 07/13/24 15:00 Actual Procedures p Intramedullary Nailing Femur(Left) - Jack Cornell MD Past Medical History (Last Reviewed 07/11/24 @ 10:34 by Jose Rafael Peralta MD) Chronic atrial fibrillation Occupational Therapy Inpatient Evaluation/Re-Eval M1 PT/OT-IP Prior Functional Status Start: 07/14/24 17:13 Freq: NEEDED Status: Active Protocol: Document 07/16/24 13:29 [facility]IN[facility]OKLES[facility] (Rec: 07/16/24 13:47 [facility] Medical Review Prior Functional Status Medical History Reviewed Yes Diet/Fluid Consistency Regular Communication able to make needs known; UNGA Mobility and Gait pt stated that she was modified independent with all mobilities and ambulation using a 4WW but does not use any AD during the night when she needs to use the toilet in her room Activities of Daily Living and IADL's pt reports she performed her own BADLs with mod I. pt has meals brought to her room. Social History Household Members none Living Arrangements Assisted Living Number of Floors (Floors) One Floor Number of Stairs To Enter/Railing? pt lives at [facility] Environment High Toilet,Walk in Shower, Built-In Shower Seat Home Equipment Front Wheel Walker,Four Wheel Walker,Hand Held Shower,Grab Bars In Shower Additional Social History Comment adjustable bed M2 OT-IP Current Condition Start: 07/16/24 13:28 Freq: Status: Active Protocol: Document 07/16/24 13:29 KRISTOPHER (Rec: 07/16/24 13:47 [facility]) Occupational Therapy Current Condition Current Condition Evaluation Date 07/16/24 Treatment Diagnosis GLF L hip s/p L femur fx s/p nailing Diagnosis Onset Date 07/11/24 Weight Bearing Status Weight Bearing Status Weight Bear as Tolerated Allowed Weight Bearing Amount (enter % per operative note or #) (%) M3 OT- IP Subjective and Pain Start: 07/16/24 13:28 Freq: Status: Active Protocol: Document 07/16/24 13:29 [facility] (Rec: 07/16/24 13:47 [facility]) OT- Subjective Occupational Therapy Visit Type Type Initial Evaluation Visit Start Time 13:01 Visit Stop Time 13:26 Notes Pt reclined in bed on entrance of OT/PT. Pt agreeable to participating in OT eval. Pt was on hold yesterday due to Hgb of 7.5. Today Pt's Hgb is 7.6, per SW MD wanted OT/PT to treat pt to see if pt is able to continue with discharge plans that were set for today. After pt's response when t/fing to chair, OT/PT feel that pts low Hgb may be an issue. Occupational Therapy Visit Comments Patient Comments Pt says she doesn't know if she'll be able to get up. Patient/Caregiver Goals to go home OT Pain Assessment Pain When Pain Assessed At Rest Pain Present Pain Present Pain Reported Location left hip Intensity 5 Scale Used Numeric (0 - 10) Management Techniques Distraction,Re-positioning M4 OT- IP ADL's Start: 07/16/24 13:28 Freq: Status: Active Protocol: Document 07/16/24 13:29 [facility] (Rec: 07/16/24 13:47 [facility]) OT [id number] Comments OT Self-Feeding Comments not observed OT ADL-Grooming Comments OT Grooming Comments not observed OT ADL-Oral Care Comments Oral Care Comments not observed OT ADL-Dressing General Eval Lower Body Dressing Ability Total Assistance Areas Needing Assistance Underpants/Brief,Socks Comments OT Dressing Comments pt attempted to don R sock but was unable to compete any portion. pt reports she wears slip on shoes at home. OT ADL-Toileting General Evaluation Toileting Ability Total Assistance Comments OT Toileting Comments pt using Purewick and brief, unable to assist with either, requiring total A at this time . OT ADL-Bathing Comments OT Bathing Comments not observed, sponge bath most appropriate at this time M5 OT- IP IADL's Start: 07/16/24 13:28 Freq: Status: Active Protocol: Document 07/16/24 13:29 [facility] (Rec: 07/16/24 13:47 [facility]) OT-Instrumental Activities of Daily Living Home Safety Awareness Awareness of Need for Assistance at Home Good Awareness Ability to Problem Solve Emergency Able to Problem Solve Situations Medication Management Medication Management No Deficits Identified Money Management Money Management No Deficits Identified Meal Preparation Meal Preparation Caregiver Provides Assist Meal Preparation Comments DONNIE Commercial Stripper Commercial Stripper Caregiver Provides Assist Commercial Stripper Comments DONNIE Driving Driving Caregiver Provides Assist Driving Comments SKILLED NURSING M6 OT- IP Functional Cognition Start: 07/16/24 13:28 Freq: Status: Active Protocol: Document 07/16/24 13:29 [facility] (Rec: 07/16/24 13:47 [facility]) Cognitive Factors Limiting Selfcare Function Cognitive Ability Level of Alertness Alert Patient Orientation Name,Age,Birthday,Month,Place, Situation Attention Span Ability Capable of Focused Attention, Capable of Sustained Attention Ability to Follow Commands Able to Follow One Step Commands,Able to Follow Multi- Step Commands Memory Description No Deficits Noted Safety Awareness Underestimates Need for Assistance Problem Solving Ability No deficits Noted OT- Vision and Hearing OT- Hearing Assessment OT- Hearing Assessment Hearing Impaired OT- Vision Assessment Visual Acuity Glasses All The Time Visual Attentiveness WFL M7 OT- IP Mobility and Balance Start: 07/16/24 13:28 Freq: Status: Active Protocol: Document 07/16/24 13:29 [facility] (Rec: 07/16/24 13:47 [facility]) OT- Bed Mobility Assessment Supine to Sit Supine to Sit Assist Contact Guard Assistance,1 Person Assistance,Head of Bed Elevated,Bedrails Scooting Scooting to Edge of Bed Contact Guard Assistance, Bedrails OT-Transfer Assessment Sit to and From Stand Sit to and from Stand Moderate Assistance,Maximum Assistance,2 Person Assistance ,Use of Upper Extremities Transfers Transfer Ability Maximum Assistance,2 Person Assistance,Use of Upper Extremities Technique Transfer Destination Chair Transfer Technique Stand Step Pivot Devices Transfer Assistive Devices Gait Belt,4 Wheeled Walker Comments Mobility Comments Pt requires increased time and constant encouragement and cues for bed mobility. HOB is increased and pt scoots left left LE with right foot, takes many rest breaks, CGA for sitting and scooting to EOB with lots of cues. Pt initial sit>stand she pushes from bed and chair not putting hands on walker requiring max A x2. Pt returns to sitting and performs second set with improved safety and modAx2. Upon getting up to chair, pt's face went white and she began staring up at the ceiling. Pt was unresponsive for several seconds. Pt recovered within 1 minute. Pt's BP on R UE 107/ 47 and HR 123. Nsg was OT- Balance Assessment Sitting Balance and Reactions Static Sitting Balance Ability Good Dynamic Sitting Balance Ability Fair Standing Balance and Reactions Static Standing Balance Ability Fair Dynamic Standing Balance Ability Poor M8 OT- IP Objective Assessments Start: 07/16/24 13:28 Freq: Status: Active Protocol: Document 07/16/24 13:29 [facility] (Rec: 07/16/24 13:47 [facility]) OT Gross Range of Motion Upper Extremity Range of Motion Assessment Within Functional Limits OT Strength Upper Extremity Strength Assessment Right Impaired Shoulder R shoulder 3+ otherwise 4- Elbow B 5 Hand Wardrobe Supervisor Strength Hand Dominance Right OT- Coordination Assessment Upper Extremity Finger to Nose Test Within Functional Limits OT Sensation Assessment Edema Edema Absent M9 OT- IP Assessment and Plan Start: 07/16/24 13:28 Freq: Status: Active Protocol: Document 07/16/24 13:29 [facility] (Rec: 07/16/24 13:47 [facility]) OT Summary Assessment and Plan Potential Rehabilitation Potential Good Analytic Complexity at Evaluation Moderate Summary OT Impairments Pain,Strength,Balance, Functional Mobility,Grooming, Dressing,Toileting,Bathing, Toilet Transfers,Shower Transfers,Activity Tolerance Progress Towards Goals Progressing Toward Goals Assessment Summary Pt is an 83 yo F with GLF resulting in L femur fx s/p nailing. Pt is a moderate complexity eval. Pt's Hgb was 7.6 today (pt was on hold at 7 .5 yesterday) per SW MD wanted pt to work with therapy to determine if she was ready for d/c today. Pt became hypotensive and tachycardic when t/f to chair. Nsg was notified and pt was left with nsg and all needs met. For this reason, OT was unable to observe pt's grooming and oral hygiene. Pt presents with UE weakness, decreased functional mobility, decreased BADLs, activity intolerance, and increased pain. Skilled OT services are appropriate to address pt deficits and promote return toward PLOF. Recommend d/c to SNF when pt is stable. Goals Self-Feeding Goal Independent Grooming Goal Independent Dressing Goal Independent Toileting Goal Independent Bathing Goal Independent Toilet Transfer Goal Independent Shower Transfer Goal Independent Days to Meet Goals 10 Frequency of Treatment Frequency Of Treatment Once a Day Other frequency 5x/wk Treatment Plan OT Treatment Plan ADL Training,Functional Mobility,Therapeutic Exercises ,Patient/Family Education, Discharge Planning Discharge Recommendations OT Discharge Recommendations SNF Rehab Transportation Needs at Discharge Wheelchair/Cabulance,Stretcher /Ambulance
[2024-07-16 15:41] VITALS: BP 131/59; BP 79/36; BP 90/45; PULSE 113; PULSE 118; PULSE 123
[2024-07-16] MEDS: WARFARIN 2.5 MG TABLET PO (17:01)
[2024-07-16] MEDS: SODIUM CHLORIDE 0.9% 1,000 ML 1000 ML IV (17:02)
--- NOTE | 2024-07-16 17:15 | PM.PN.1 ---
Subjective Subjective Date Patient Seen: 07/16/24 Interval history: History of present illness: The patient is an 83-year-old female who is a resident of [facility]. She had a fall and subsequent hip fracture. She presented to the ED where imaging confirmed a hip fracture. She was significant pain with any movement. She denies any other injuries. She was on chronic warfarin. The emergency department did talk to Orthopedics, they requested holding warfarin and will likely repair of the hip on July 12. She was an additional history of hypothyroidism, and diabetes. She denies any chest pain, she notes an abnormal ECG was obtained recently by her primary care doctor, Dr. Thurman. He had ordered an echocardiogram to follow up on this. She denies any known history of heart problems and denies dyspnea, or chest pain. Hospital course: Date of procedure: 07/13/24 Time of procedure: 17:00 Pre-op diagnosis: Intertrochanteric left femur fracture Intramedullary nailing of intertrochanteric left femur fracture with subtrochanteric extension 07/15-07/16 postoperative course was uncomplicated hemoglobin 7.5 postoperatively in stable the next day 7.6 Patient referred for rehab halfway facility and will be on supplemental iron however was orthostatic today started on IV fluids recheck labs and hemoglobin tomorrow Review of systems: No fevers chills No headache No palpitations chest pain shortness for breath No nausea vomiting diarrhea No paresthesia paresis Physical exam: No acute distress HEENT unremarkable Neck no carotid bruits Unlabored respirations Abdomen not distended Extremities no edema Assessment and plan: 1. Ground level fall, resolved. 2. Left intertrochanteric femur fracture, active, POA, pathologic secondary to osteoporosis. 3. DM 2, active. 4. Hypothyroidism, active. 5. Paroxysmal atrial fibrillation 6. Acute blood loss anemia due to surgical procedure Plan: - have resumed warfarin per pharmacy. - repeat CBC tomorrow with eye on Hg at 7.5 today and will resume home warfarin given no signs/symptoms of active bleeding. No evidence of hematoma on exam today. -PT/OT ordered today. -sliding scale insulin, if h/h stable can resume home jardiance and metformin with the addition of basal bolus insulin. -continue home levothyroxine, memantine, propafenone. code: Full DVT: on warfarin. Discharge to SNF, Time-Based Coding :: 35 minutes spent with patient and on the chart (including review of chart, obtaining history, exam, reviewing outside data, placing orders, documenting exam and treatment plan, and counseling patient). Exam Vital Signs (past 8 hours): - 07/16/24 15:41 Pulse Rate [Orthostatic Lying] 113 H Pulse Rate [Orthostatic Sitting] 118 H Pulse Rate [Orthostatic Standing] 123 H Blood Pressure [Orthostatic Lying] 131/59 L Blood Pressure [Orthostatic Sitting] 90/45 L Blood Pressure [Orthostatic Standing] 79/36 L Oxygen Delivery Method Room Air Oxygen Flow Rate 0 Objective Labs 07/16/24 05:49 07/16/24 05:49 Labs: Laboratory Results - last 24 hr 07/16/24 05:49 WBC 10.0 RBC 3.05 L Hgb 7.6 L Hct 24.0 L MCV 78.8 L MCH 25.1 L MCHC 31.8 RDW 16.6 H Plt Count 248 PT 14.1 H INR 1.2 Sodium 136 L Potassium 4.3 Chloride 102 Carbon Dioxide 29 BUN 19 H Creatinine 0.68 Estimated GFR > 60 BUN/Creatinine Ratio 27.9 H Glucose 204 H Calcium 8.2 L PFSH Medical History Chronic atrial fibrillation Social History household members: none Smoking Status: Never smoker alcohol intake: never Assessment & Plan Time-Based Coding :: [TOTAL MINUTES] spent with patient and on the chart (including review of chart, obtaining history, exam, reviewing outside data, placing orders, documenting exam and treatment plan, and counseling patient) on [DATE]. Quality VTE Deep Vein Thrombosis/Pulmonary Embolism Present on Admission: No
[2024-07-16] MEDS: KCL 20 MEQ IN NS 1,000 ML 100 MEQ IV (17:41)
[2024-07-16 21:55] VITALS: BP 150/67; PULSE 107; RESP 18; TEMP 37.1; O2SAT 100
[2024-07-17] MEDS: OXYCODONE IR 5 MG TABLET PO (03:58)
[2024-07-17] MEDS: ACETAMINOPHEN 325 MG TABLET 650 MG PO (04:15)
[2024-07-17 06:30] LABS: INR 1.6 (0.9-1.3); Prothrombin Time 17.5 SECONDS (9.4-12.5)
[2024-07-17] MEDS: LEVOTHYROXINE 112 MCG TABLET PO (07:00)
[2024-07-17] MEDS: INSULIN LISPRO 100 UNIT/ML 3ML VIAL SUBCUT (08:40)
[2024-07-17] MEDS: INSULIN GLARGINE 100 UNIT/ML 3ML PEN 10 UNIT SUBCUT (08:46)
[2024-07-17] MEDS: MEMANTINE HCL 5 MG TABLET PO (09:11)
[2024-07-17] MEDS: PROPAFENONE 425 MG 425 EACH PO (09:12)
[2024-07-17] MEDS: METFORMIN HCL 500 MG TABLET 1000 MG PO (09:14)
[2024-07-17 09:51] LABS: Add Manual Diff / Slide Review NO; Basophils Absolute Auto 0 /uL (0-100); Basophils Percent Auto 0.5 % (0-2); Eosinophils Absolute Auto 300 /uL (0-450); Eosinophils Percent Auto 2.7 % (2-4); Hematocrit 23.2 % (36-46); Hemoglobin 7.2 g/dL (12.0-16.0); Lymphocytes Absolute Auto 2000 /uL (1100-4500); Lymphocytes Percent Auto 21.3 % (25-40); Mean Corpuscular HGB Conc 31.1 % (30-36); Mean Corpuscular Hemoglobin 24.8 PG (26-34); Mean Corpuscular Volume 79.6 fL (80-100); Monocytes Absolute Auto 400 /uL (0-900); Monocytes Percent Auto 4.5 % (3-14); Neutrophils Absolute Auto 6700 /uL (1500-7000); Platelet Count 239 X10^3/uL (150-400); Red Blood Cell Count 2.92 X10^6/uL (4.0-5.2); Red Cell Distribution Width 17.1 % (11.6-14.8); White Blood Cell Count 9.4 X10^3/uL (4.5-11.0)
[2024-07-17 10:09] LABS: Alanine Aminotransferase 13 IU/L (<35); Albumin 2.4 g/dL (3.5-5.0); Alkaline Phosphatase 68 U/L (38-126); Aspartate Aminotransferase 23 IU/L (14-36); BUN Creatinine Ratio 21.3 (6-22); Bilirubin Total 0.4 mg/dL (0.2-1.3); Blood Urea Nitrogen 13 mg/dL (7-17); Calcium 7.9 mg/dL (8.4-10.2); Carbon Dioxide 27 mmol/L (22-32); Chloride 104 mmol/L (98-107); Estimated Glomerular Filt Rate > 60 mL/min (>60); Globulin 2.4 g/dL (1.7-4.1); Glucose 257 mg/dL (70-99); HEMOLYSIS < 15 (0-50); Sodium 136 mmol/L (137-145); Total Protein 4.8 g/dL (6.3-8.2)
[2024-07-17] MEDS: KCL 20 MEQ IN NS 1,000 ML 100 MEQ IV (10:37)
[2024-07-17 10:49] VITALS: PULSE 99; RESP 16; TEMP 36.8; O2SAT 100
--- NOTE | 2024-07-17 11:55 | PC.NURSE ---
Pt A/O Dsg to left hip CDI Plans for D/C today to [facility] D/C orders recieved, Pt discharged by SNF staff via W/C in stable status.
--- NOTE | 2024-07-17 12:11 | CM.DPC ---
DCP Cont. Reviewed EMR and team rounds for status updates. [facility] and [facility] at 11:30am. D/c clinicals and [facility] faxed. No further CM d/c assistance needs at this time.
== END 2024-07-17 11:50 | DRG 481 ==
LOC: ED 07:42 → AC 07:57
PROVIDERS: Internal Medicine; Orthopaedic Surgery; Orthopaedic Surgery Adult Reconstructive Orthopaedic Surgery; Student in an Organized Health Care Education/Training Program; Admitting Provider Hospitalist; Emergency Provider Emergency Medicine; PCP Family Medicine; Referring Provider Emergency Medicine; Visit Provider Hospitalist
PROC: 0QS706Z Reposition Left Upper Femur with Intramedullary Internal Fixation Device, Open Approach (ICD-10-PCS; CPT 27245; principal; 2024-07-13 15:00)
DX: M80.052A Age-related osteoporosis with current pathological fracture, left femur, initial encounter for fracture (principal); D62 Acute posthemorrhagic anemia; E11.9 Type 2 diabetes mellitus without complications; E03.9 Hypothyroidism, unspecified; I51.7 Cardiomegaly; I48.0 Paroxysmal atrial fibrillation; K21.9 Gastro-esophageal reflux disease without esophagitis; R79.1 Abnormal coagulation profile; Z79.01 Long term (current) use of anticoagulants; Z79.84 Long term (current) use of oral hypoglycemic drugs; Z79.890 Hormone replacement therapy
CPT/HCPCS: 36415; 70450; 72125; 73502; 76000; 80048; 80053; 82962; 83036; 85025; 85027; 85610; 85730; 93005; 96374; 96375; 97162; 97166; 97530; 99283; 99284; C1713; J0131; J0690; J1100; J1171; J1815; J2270; J2405; J2704; J3010; J3430; J3490

== ENCOUNTER → 2024-08-30 06:19 | Outpatient (ROUT) | payer MEDICARE, MEDICAID, SELFPAY ==
[2024-07-11 10:54] VITALS: BMI 147.2
[2024-08-30 08:05] LABS: INR 3.2 (0.9-1.3); Prothrombin Time 35.5 SECONDS (9.4-12.5)
[2024-08-30 08:10] LABS: Blood Urea Nitrogen 12 mg/dL (7-17); Calcium 8.5 mg/dL (8.4-10.2); Carbon Dioxide 29 mmol/L (22-32); Chloride 105 mmol/L (98-107); Estimated Glomerular Filt Rate > 60 mL/min (>60); Glucose 106 mg/dL (70-99); HEMOLYSIS < 15 (0-50); Potassium 3.8 mmol/L (3.4-5.1); Sodium 137 mmol/L (137-145)
[2024-08-30 08:28] LABS: Iron 44 ug/dL (37-170)
[2024-08-30 08:45] LABS: Ferritin 16 ng/mL (11-264)
== END ==
PROVIDERS: PCP Registered Nurse; Visit Provider Registered Nurse
DX: E11.9 Type 2 diabetes mellitus without complications (principal); E83.51 Hypocalcemia; D64.9 Anemia, unspecified
CPT/HCPCS: 36415; 80048; 82728; 83540; 85610

== ENCOUNTER → 2024-09-05 08:42 | Outpatient (ROUT) | payer MEDICARE, MEDICAID, SELFPAY ==
[2024-07-11 10:54] VITALS: BMI 147.2
[2024-09-05 09:48] LABS: Iron 29 ug/dL (37-170)
[2024-09-05 09:49] LABS: Blood Urea Nitrogen 14 mg/dL (7-17); Calcium 8.0 mg/dL (8.4-10.2); Carbon Dioxide 28 mmol/L (22-32); Chloride 104 mmol/L (98-107); Estimated Glomerular Filt Rate > 60 mL/min (>60); Glucose 95 mg/dL (70-99); HEMOLYSIS < 15 (0-50); INR 1.9 (0.9-1.3); Potassium 4.2 mmol/L (3.4-5.1); Prothrombin Time 21.4 SECONDS (9.4-12.5); Sodium 138 mmol/L (137-145)
[2024-09-05 10:24] LABS: Ferritin 20 ng/mL (11-264)
[2024-09-05 23:57] LABS: Appearance Urine UA SL CLOUDY; Bilirubin Urine UA NEGATIVE (NEGATIVE); Color Urine UA YELLOW; Glucose Urine UA 1+ g/dL (Negative); Ketones Urine UA NEGATIVE (NEGATIVE); Leukocyte Esterase Urine UA 2+ (NEGATIVE); Nitrite Urine UA NEGATIVE (Negative); Occult Blood Urine UA TRACE-INTACT (Negative); Protein Urine UA NEGATIVE (Negative); Specific Gravity Urine UA 1.025 (1.000-1.035); Urobilinogen Urine UA 0.2 E.U./dL (0.2)
[2024-09-05 23:59] LABS: pH Urine UA 5.5 (4.5-8.0)
[2024-09-06 00:02] LABS: Culture Indicated Urine Specimen Cultured
== END ==
PROVIDERS: PCP Registered Nurse; Visit Provider Registered Nurse
DX: E11.9 Type 2 diabetes mellitus without complications (principal); E83.51 Hypocalcemia; D64.9 Anemia, unspecified
CPT/HCPCS: 36415; 80048; 81001; 82728; 83540; 85610; 87077; 87086; 87147

== ENCOUNTER → 2024-09-12 06:23 | Outpatient (ROUT) | payer MEDICARE, MEDICAID, SELFPAY ==
[2024-07-11 10:54] VITALS: BMI 147.2
[2024-09-12 07:46] LABS: INR 2.7 (0.9-1.3); Prothrombin Time 30.3 SECONDS (9.4-12.5)
== END ==
LOC: LAB 06:24
PROVIDERS: PCP Registered Nurse; Visit Provider Registered Nurse
DX: E03.9 Hypothyroidism, unspecified (principal)
CPT/HCPCS: 36415; 85610

== ENCOUNTER → 2024-09-19 06:37 | Outpatient (ROUT) | payer SELFPAY ==
[2024-09-19 09:26] LABS: INR 2.6 (0.9-1.3); Prothrombin Time 29.3 SECONDS (9.4-12.5)
== END ==
PROVIDERS: Visit Provider Registered Nurse
DX: E03.9 Hypothyroidism, unspecified (principal)
CPT/HCPCS: 36415; 85610

== ENCOUNTER → 2024-10-19 07:29 | Outpatient (CLI) | payer MEDICARE, MEDICAID, SELFPAY ==
[2024-07-11 10:54] VITALS: BMI 147.2
[2024-10-19 08:54] LABS: INR 2.0 (0.9-1.3); Prothrombin Time 22.5 SECONDS (9.4-12.5)
== END ==
PROVIDERS: PCP Registered Nurse; Referring Provider Registered Nurse; Visit Provider Registered Nurse
DX: E03.9 Hypothyroidism, unspecified (principal)
CPT/HCPCS: 36415; 85610

== ENCOUNTER → 2024-10-31 06:25 | Outpatient (ROUT) | payer MEDICARE, MEDICAID, SELFPAY ==
[2024-07-11 10:54] VITALS: BMI 147.2
[2024-10-31 08:06] LABS: INR 1.7 (0.9-1.3); Prothrombin Time 18.8 SECONDS (9.4-12.5)
== END ==
PROVIDERS: PCP Registered Nurse; Visit Provider Registered Nurse
DX: E03.9 Hypothyroidism, unspecified (principal)
CPT/HCPCS: 36415; 85610

== ENCOUNTER → 2024-11-07 06:21 | Outpatient (ROUT) | payer MEDICARE, MEDICAID, SELFPAY ==
[2024-07-11 10:54] VITALS: BMI 147.2
[2024-11-07 08:15] LABS: INR 2.7 (0.9-1.3); Prothrombin Time 29.7 SECONDS (9.4-12.5)
== END ==
LOC: LAB 06:21
PROVIDERS: PCP Registered Nurse; Visit Provider Registered Nurse
DX: E03.9 Hypothyroidism, unspecified (principal)
CPT/HCPCS: 36415; 85610

== ENCOUNTER → 2024-11-28 06:28 | Outpatient (ROUT) | payer MEDICARE, MEDICAID, SELFPAY ==
[2024-07-11 10:54] VITALS: BMI 147.2
[2024-11-28 07:29] LABS: INR 2.7 (0.9-1.3); Prothrombin Time 30.1 SECONDS (9.4-12.5)
== END ==
PROVIDERS: PCP Registered Nurse; Visit Provider Registered Nurse
DX: E03.9 Hypothyroidism, unspecified (principal); I48.91 Unspecified atrial fibrillation
CPT/HCPCS: 36415; 85610

== ENCOUNTER → 2024-12-19 06:26 | Outpatient (ROUT) | payer MEDICARE, MEDICAID, SELFPAY ==
[2024-07-11 10:54] VITALS: BMI 147.2
[2024-12-19 07:42] LABS: INR 3.2 (0.9-1.3); Prothrombin Time 35.2 SECONDS (9.4-12.5)
== END ==
LOC: LAB 06:26
PROVIDERS: PCP Registered Nurse; Visit Provider Registered Nurse
DX: E03.9 Hypothyroidism, unspecified (principal)
CPT/HCPCS: 36415; 85610

== ENCOUNTER → 2024-12-26 06:27 | Outpatient (ROUT) | payer MEDICARE, MEDICAID, SELFPAY ==
[2024-07-11 10:54] VITALS: BMI 147.2
[2024-12-26 08:48] LABS: INR 2.5 (0.9-1.3); Prothrombin Time 27.6 SECONDS (9.4-12.5)
== END ==
PROVIDERS: PCP Registered Nurse; Visit Provider Registered Nurse
DX: E03.9 Hypothyroidism, unspecified (principal)
CPT/HCPCS: 36415; 85610

== ENCOUNTER → 2024-12-26 21:29 | Outpatient (ROUT) | payer MEDICARE, MEDICAID, SELFPAY ==
[2024-07-11 10:54] VITALS: BMI 147.2
[2024-12-26 21:37] LABS: Appearance Urine UA CLEAR; Bilirubin Urine UA NEGATIVE (NEGATIVE); Color Urine UA YELLOW; Glucose Urine UA NEGATIVE (Negative); Ketones Urine UA NEGATIVE (NEGATIVE); Leukocyte Esterase Urine UA 1+ (NEGATIVE); Nitrite Urine UA NEGATIVE (Negative); Occult Blood Urine UA NEGATIVE (Negative); Protein Urine UA NEGATIVE (Negative); Specific Gravity Urine UA 1.020 (1.000-1.035); Urobilinogen Urine UA 0.2 E.U./dL (0.2)
[2024-12-26 21:38] LABS: pH Urine UA 5.5 (4.5-8.0)
[2024-12-26 21:43] LABS: Culture Indicated Urine Specimen Cultured
== END ==
LOC: LAB 21:30
PROVIDERS: PCP Registered Nurse; Visit Provider Registered Nurse
DX: N39.0 Urinary tract infection, site not specified (principal)
CPT/HCPCS: 36415; 81001; 85610; 87086

== ENCOUNTER → 2025-01-09 06:15 | Outpatient (ROUT) | payer MEDICARE, MEDICAID, SELFPAY ==
[2024-07-11 10:54] VITALS: BMI 147.2
[2025-01-09 08:35] LABS: INR 3.9 (0.9-1.3); Prothrombin Time 42.8 SECONDS (9.4-12.5)
== END ==
PROVIDERS: PCP Registered Nurse; Visit Provider Registered Nurse
DX: E03.9 Hypothyroidism, unspecified (principal)
CPT/HCPCS: 36415; 85610

== ENCOUNTER → 2025-01-16 06:26 | Outpatient (ROUT) | payer MEDICARE, MEDICAID, SELFPAY ==
[2024-07-11 10:54] VITALS: BMI 147.2
[2025-01-16 08:19] LABS: INR 1.9 (0.9-1.3); Prothrombin Time 21.0 SECONDS (9.4-12.5)
== END ==
PROVIDERS: PCP Registered Nurse; Visit Provider Registered Nurse
DX: E03.9 Hypothyroidism, unspecified (principal)
CPT/HCPCS: 36415; 85610

== ENCOUNTER → 2025-01-23 21:55 | Outpatient (ROUT) | payer MEDICARE, MEDICAID, SELFPAY ==
[2024-07-11 10:54] VITALS: BMI 147.2
[2025-01-23 22:12] LABS: Appearance Urine UA CLEAR; Bilirubin Urine UA NEGATIVE (NEGATIVE); Color Urine UA YELLOW; Glucose Urine UA NEGATIVE (Negative); Ketones Urine UA NEGATIVE (NEGATIVE); Leukocyte Esterase Urine UA NEGATIVE (NEGATIVE); Nitrite Urine UA NEGATIVE (Negative); Occult Blood Urine UA NEGATIVE (Negative); Protein Urine UA NEGATIVE (Negative); Specific Gravity Urine UA 1.010 (1.000-1.035); Urobilinogen Urine UA 0.2 E.U./dL (0.2); pH Urine UA 6.5 (4.5-8.0)
[2025-01-23 22:23] LABS: Culture Indicated Urine Cult Not Indicated
== END ==
LOC: LAB 21:56
PROVIDERS: PCP Registered Nurse; Visit Provider Registered Nurse
DX: N39.0 Urinary tract infection, site not specified (principal)
CPT/HCPCS: 81001

== ENCOUNTER → 2025-01-30 06:19 | Outpatient (ROUT) | payer MEDICARE, MEDICAID, SELFPAY ==
[2024-07-11 10:54] VITALS: BMI 147.2
[2025-01-30 09:38] LABS: Hematocrit 38.4 % (36-46); Hemoglobin 12.8 g/dL (12.0-16.0); Mean Corpuscular HGB Conc 33.4 % (30-36); Mean Corpuscular Hemoglobin 30.2 PG (26-34); Mean Corpuscular Volume 90.3 fL (80-100); Platelet Count 329 X10^3/uL (150-400)
[2025-01-30 09:41] LABS: INR 2.5 (0.9-1.3); Prothrombin Time 27.8 SECONDS (9.4-12.5)
[2025-01-30 09:53] LABS: Blood Urea Nitrogen 15 mg/dL (7-17); Calcium 8.9 mg/dL (8.4-10.2); Carbon Dioxide 32 mmol/L (22-32); Chloride 102 mmol/L (98-107); Estimated Glomerular Filt Rate > 60 mL/min (>60); Glucose 124 mg/dL (70-99); HEMOLYSIS < 15 (0-50); Potassium 4.8 mmol/L (3.4-5.1); Sodium 140 mmol/L (137-145)
[2025-01-30 10:14] LABS: Hemoglobin A1C% w Est Avg Glu 6.2 % (4.0-6.0)
[2025-01-30 10:23] LABS: Thyroid Stimulating Hormone 1.86 uIU/mL (0.47-4.68)
== END ==
LOC: LAB 06:21
PROVIDERS: PCP Registered Nurse; Visit Provider Registered Nurse
DX: Z13.228 Encounter for screening for other metabolic disorders (principal); E11.8 Type 2 diabetes mellitus with unspecified complications; R60.9 Edema, unspecified; D64.9 Anemia, unspecified; R79.1 Abnormal coagulation profile
CPT/HCPCS: 36415; 80048; 83036; 84443; 85027; 85610